=== PATIENT | male | born 1975 | race Caucasian/White ===

== ENCOUNTER → 2017-09-19 11:01 | Outpatient (CLI) | payer OTHER, SELFPAY ==
--- NOTE | 2017-09-19 11:07 | XR_ITS ---
EXAM: XR lumbar spine min 4V HISTORY: ITS.REASON: ACUTE MIDLINE LOW BACK PAIN ORDERING PHYSICIAN: SALENA Sweet PATIENT AGE: 42 years COMPARISON: None FINDINGS: Normal alignment. No fracture or dislocation. No lytic or blastic change. Moderate to severe degenerative disc disease is present at L5-S1 with decrease in the disc space, osteophyte formation, and osteosclerosis of the endplates. IMPRESSION: Degenerative disc disease at L5-S1
== END ==
PROVIDERS: PCP Family Medicine; Visit Provider Physician Assistant
DX: M54.5 Low back pain (principal)
CPT/HCPCS: 72110

== ENCOUNTER → 2018-08-06 15:10 | Outpatient (CLI) | payer OTHER, SELFPAY | PROVIDERS: PCP Physician Assistant; Visit Provider Physician Assistant | DX: R00.2 Palpitations (principal) | CPT/HCPCS: 93225; 93226 ==

== ENCOUNTER → 2018-11-18 14:05 | Outpatient (CLI) | payer OTHER, SELFPAY ==
--- NOTE | 2018-11-18 14:09 | CA_ITS ---
PROCEDURE: 2-D M-mode and color Doppler study INDICATIONS FOR THE TEST: Chest pain+ COPD Heart Murmur Tobacco Smoking Palpitations+ Fatigue+ Syncope Edema Hypertension+Diabetes Mellitus Rheumatic Fever SOB ADAMS+Obesity+Hyperlipidemia+ Family History HD Additional History PATIENT INFORMATION HEIGHT: 72 WEIGHT: 290 GENDER: Male B/P: 145/85 2-D/M-MODE INTERPRETATION: 2-D MEASUREMENTS OBSERVED VALUES IN CMS Right Ventricular Dimension (RVDd) 2.0 Interventricular Septum (Thickness)(IVsd) 1.0 Left Ventricular Internal Dimensions(LVIDd) 2.6 Left Ventricular Posterior Wall (Thickness)(LVPWd) 1.0 Aortic Root 2.8 Aortic Cusp Separation 2.0 Left Atrial Dimensions (LAD) 3.5 2D 1. Left atrium is mildly enlarged, left ventricle is normal size, mild concentric left ventricular hypertrophy, visually estimated ejection fraction 55% with no regional wall motion abnormality. 2. The right atrium and right ventricle are mildly enlarged with normal contractility. 3. The aortic valve is minimally thickened and fibrosed. 4. The mitral and tricuspid valvular grossly normal. 5. The pulmonic valve is poorly visualized. 6. No significant pericardial effusion noted. DOPPLER INTERROGATION: Doppler interrogation of the mitral and tricuspid valvular presence of mild mitral and tricuspid regurgitation, tricuspid regurgitation jet velocity is inadequate for calculation of the right ventricular systolic pressure, grade 1 diastolic dysfunction seen with tissue Doppler evidence of raised left atrial pressure. CONCLUSION: 1. Mildly enlarged left atrium, normal left ventricular size, mild concentric left ventricular hypertrophy, visually estimated ejection fraction 55% with no regional wall motion abnormality, grade 1 diastolic dysfunction seen with tissue Doppler evidence of raised left atrial pressure. 2. Mildly enlarged right ventricle with normal contractility. 3. Mild mitral and tricuspid regurgitation 4. No significant pericardial effusion noted.
== END ==
PROVIDERS: PCP Family Medicine; Visit Provider Nurse Practitioner Family
DX: R00.0 Tachycardia, unspecified (principal); R07.9 Chest pain, unspecified
CPT/HCPCS: 93306

== ENCOUNTER → 2018-12-19 13:00 | Outpatient (CLI) | payer OTHER, SELFPAY | PROVIDERS: PCP Family Medicine; Visit Provider Nurse Practitioner Family | DX: G47.30 Sleep apnea, unspecified (principal); I10 Essential (primary) hypertension; R40.0 Somnolence; R06.83 Snoring; R53.83 Other fatigue | CPT/HCPCS: 95806 ==

== ENCOUNTER → 2018-12-29 12:02 | Outpatient (CLI) | payer OTHER, SELFPAY ==
--- NOTE | 2018-12-29 12:52 | NM_ITS ---
CARDIOLITE SPECT MYOCARDIAL PERFUSION LEXISCAN, REST AND STRESS: [facility] REVIEW QGS EF AND WALL MOTION EVALUATION: QPS - PERFUSION EVALUATION HISTORY: TACHYCARDIA, C.P. DOSE: 9.71 mCi technetium 99m mibi intravenously at rest followed by 31.6 mCi technetium 99m mibi following the intravenous ministration of 0.4 mg of Lexiscan. Resting blood pressure is 186/59. Stress blood pressure 145/85. FINDINGS: Ejection fraction is calculated to be 50%. Uniform myocardial activity at both stress and rest IMPRESSION: No scintigraphic evidence of Lexiscan-induced myocardial ischemia with normal ejection fraction normal wall motion
== END ==
PROVIDERS: PCP Nurse Practitioner Family; Visit Provider Nurse Practitioner Family
DX: R00.0 Tachycardia, unspecified (principal); R07.9 Chest pain, unspecified
CPT/HCPCS: 78454; 93017; A9502; J2785

== ENCOUNTER → 2019-01-02 07:48 | Outpatient (CLI) | payer SELFPAY ==
--- NOTE | 2019-01-02 07:50 | CT_ITS ---
CT heart w calcium score INDICATION: ITS.REASON: chest pain, dyspnea ORDERING PHYSICIAN: Pramod Palafox MD PATIENT AGE: 43 years COMPARISON: None TECHNIQUE: Axial images are obtained without contrast. Sagittal and coronal reformatted images are reviewed as well. All CT scans at the facility use one or more dose reduction, viz: automated exposure control, ma/kV adjustment per patient size (including targeted exams where dose is matched to indication, i.e. head), or iterative reconstruction technique. FINDINGS: Coronary artery calcium score is 0 indicating very low cardiovascular disease risk. No identifiable plaque. There is mild thickening of the esophagus which may be seen with reflux esophagitis. IMPRESSION: No identifiable calcific plaque indicating low cardiovascular disease risk Thickening of the distal esophagus suggesting reflux
== END ==
PROVIDERS: PCP Family Medicine; Visit Provider Internal Medicine Cardiovascular Disease
DX: R07.9 Chest pain, unspecified (principal); R06.09 Other forms of dyspnea; R94.31 Abnormal electrocardiogram [ECG] [EKG]; I10 Essential (primary) hypertension; R00.2 Palpitations
CPT/HCPCS: 75571

== ENCOUNTER → 2019-10-13 15:44 | Outpatient (CLI) | payer OTHER, SELFPAY ==
--- NOTE | 2019-10-13 15:51 | XR_ITS ---
PROCEDURE: XR LUMBAR SPINE MIN 4V CLINICAL INDICATION: LUMBAR DISC HERNIATION Bilateral lower leg pain COMPARISON: [id number] XR lumbar spine min 4V from 09/19/2017 FINDINGS: Normal alignment. No fracture or dislocation. There is degenerative disc disease at L4-5 and to a greater degree at L5-S1 with some mild facet hypertrophic change at these levels as well IMPRESSION: Degenerative disc disease with facet hypertrophy L4-5 and L5-S1 Dictated by: Richard Mann MD 10/13/2019 17:06 Electronically signed by Richard Mann MD in [place] 10/13/2019 17:06
== END ==
PROVIDERS: PCP Family Medicine; Visit Provider Family Medicine
DX: M51.26 Other intervertebral disc displacement, lumbar region (principal)
CPT/HCPCS: 72110

== ENCOUNTER → 2019-10-16 13:34 | Outpatient (CLI) | payer OTHER, SELFPAY ==
--- NOTE | 2019-10-16 13:39 | MR_ITS ---
PROCEDURE: MR LUMBAR SPINE WO/W CON CLINICAL INDICATION: LUMBAR MYELOPATHY Low back pain with bilateral leg pain, left leg pain numbness and tingling. Prior surgery COMPARISON: [facility] MRI-L-SPINE W/WO from 05/08/2013 BASE REMOVER/O MRI-C-SPINE W/O from 05/18/2015 XR LUMBAR SPINE MIN 4V from 10/13/2019 TECHNIQUE: Standard multiplanar multiecho sequences are performed without contrast. 3-D MIP and myelographic images are also rendered and reviewed FINDINGS: Spinal cord ends at the L1-L2 level. There is good alignment. L1-L2: There is a small right paracentral disc protrusion causing some mild indentation upon the thecal sac the. This is not readily apparent on the previous exam L2-L3: Unremarkable. L3-L4: Mild bulging disc with mild facet and ligamentum hypertrophy with mild bilateral lateral recess and foraminal narrowing. L4-5: There is degenerative disc disease at L4-L5 with bulging disc which is eccentric toward the left. There has been a prior laminectomy on the left at this level. There is an area isointensity along the anterior aspect of the canal at this region. There is enhancement of this region as well as part of the bulging disc and left epidural space and paraspinal region. This is consistent with epidural fibrosis. There is canal stenosis as well as bilateral lateral recess and foraminal narrowing severe on the left. There is enhancement of the tissues around the left S1 nerve root anteriorly and posteriorly. L5-S1: Status post left-sided laminectomy. There is severe degenerative disc disease with bulging disc and facet and ligamentum hypertrophy with severe bilateral foraminal narrowing and severe bilateral lateral recess narrowing with canal stenosis. No abnormal epidural enhancement. IMPRESSION: 1. Small right paracentral disc protrusion at L1-L2. 2. Mild bulging disc with facet ligamentum hypertrophy and mild bilateral lateral recess and foraminal narrowing at L3-L4 3. There is degenerative disc disease at L4-L5 with bulging disc which is eccentric toward the left. There has been a prior laminectomy on the left at this level. There is abnormal enhancement of the posterior aspect of the disc and the small area of disc protrusion centrally as well as in the left epidural region consistent with epidural fibrosis. Canal stenosis is also present at this level. 4. Status post L5-S1 left-sided laminectomy. There is severe degenerative disc disease with bulging disc and facet and ligamentum hypertrophy with severe bilateral foraminal narrowing and severe bilateral lateral recess narrowing with canal stenosis. No abnormal epidural enhancement. Dictated by: Richard Mann MD 10/20/2019 09:57 Electronically signed by Richard Mann MD in [place] 10/20/2019 09:57
== END ==
PROVIDERS: PCP Family Medicine; Visit Provider Family Medicine
DX: M51.06 Intervertebral disc disorders with myelopathy, lumbar region (principal); G95.9 Disease of spinal cord, unspecified
CPT/HCPCS: 72158; 76376; A9576

== ENCOUNTER → 2019-12-09 15:40 | Outpatient (CLI) | payer OTHER, SELFPAY ==
--- NOTE | 2019-12-09 | XR_ITS ---
PROCEDURE: XR CERVICAL SPINE 2V CLINICAL INDICATION: Neck pain COMPARISON: No exams were available for comparison FINDINGS: There is slight reversal of cervical lordosis which may be due to patient positioning or muscle spasm. Degenerative disc disease is present at C5-C6 and C6-C7. No fracture or dislocation. No lytic or blastic change. IMPRESSION: Degenerative disc disease C5-C6 and C6-C7 with slight reversal of the cervical lordosis Dictated by: Richard Mann MD 12/09/2019 17:00 Electronically signed by Richard Mann MD in [place] 12/09/2019 17:00
== END ==
PROVIDERS: PCP Family Medicine
DX: M54.2 Cervicalgia (principal)
CPT/HCPCS: 72040

== ENCOUNTER → 2019-12-24 10:52 | Outpatient (POV) | payer OTHER, SELFPAY ==
[2019-12-24 11:16] VITALS: BP 135/85; PULSE 88; RESP 18; TEMP 36.6; O2SAT 88; BMI 40.0
--- NOTE | 2019-12-24 12:36 | HMH.PMCON ---
Assessment and Plan (1) Degenerative joint disease (DJD) of lumbar spine Current visit: Yes Status: Chronic Category: Medical Code(s): M47.816 - Spondylosis without myelopathy or radiculopathy, lumbar region (2) Lumbar radiculopathy Current visit: Yes Status: Chronic Category: Medical Code(s): M54.16 - Radiculopathy, lumbar region (3) Facet arthropathy, lumbar Current visit: Yes Status: Chronic Category: Medical Code(s): M47.816 - Spondylosis without myelopathy or radiculopathy, lumbar region (4) Spinal stenosis of lumbar region Current visit: Yes Status: Chronic Qualifiers: Neurogenic claudication status: with neurogenic claudication Qualified Code(s): M48.062 - Spinal stenosis, lumbar region with neurogenic claudication Category: Medical Code(s): M48.061 - Spinal stenosis, lumbar region without neurogenic claudication (5) Neck pain Current visit: Yes Status: Chronic Category: Medical Code(s): M54.2 - Cervicalgia (6) Cervical radiculopathy Current visit: Yes Status: Chronic Category: Medical Code(s): M54.12 - Radiculopathy, cervical region - Assessment and plan all Dx Assessment and Plan for all problems:: Given the patient's imaging and symptoms, we will begin with lumbar epidural steroid injection at L4-L5. He does have significant pain. Patient does not want oral medications. We will schedule him for an injection and see him back in the clinic afterwards to reassess his symptoms. He will continue with anti-inflammatories and a continued home stretching program. The patient and I specifically discussed risk factors for COVID19. These risks include, but are not limited to age greater than 60, heart or lung disease, diabetes, immunosuppression, and travel. We also discussed NSAIDs may worsen COVID19 infection or symptoms. Patient should not use NSAIDs to treat COVID19 signs or symptoms. Patient was also informed that any type of corticosteroid of any form (oral or injection) will decrease the patient's immune system response and may increase the likelihood of COVID19 infection and symptoms. Given the risk and benefits of the injection, the patient would like to proceed. The patient not also discussed possible intrathecal therapy if he does not get relief with the injections. He would also like to discuss possible injective therapy to his neck because he is awaiting an MRI. He is not on any anticoagulation therapy. Patient has been instructed to contact clinic if he has any concerns before his next appointment. Dr. Adams has reviewed this note and agrees with this plan of care. This note was dictated using voice recognition software and make contain errors or omissions. HPI - Data of Consult Consult date: 12/24/19 Requesting Physician: Celia Lafleur APRN Primary Care Provider: Magdaleno Laureano MD - Consult Narrative Reason for consult: Low back pain, bilateral leg pain, neck pain History of present illness: Mr. Sanders is a 44 year old male who presents today for consultation for low back pain with radiation into his bilateral lower extremities and neck pain. Patient says that he has had chronic low back pain for many years . He says the pain has progressively gotten worse. Patient did undergo a laminectomy in [place]. He says following his laminectomy he did feel better initially. He says he is progressively started to get worse, however. Patient reports his pain to be in his bilateral low back area with radiation into his bilateral posterior and anterior thighs. He says that the pain does radiate to the feet with prolonged sitting. Patient says that his feet do go numb and he finds himself losing balance. Patient also says he is starting to have severe neck pain as well. Patient does have recent imaging of his lumbar spine. He says that his primary care provider has been attempting to get an MRI of his cervical spine, however, he has not bee
== END ==
PROVIDERS: PCP Family Medicine; Visit Provider Clinical Nurse Specialist Family Health
DX: M47.896 Other spondylosis, lumbar region (principal); M54.16 Radiculopathy, lumbar region; M48.062 Spinal stenosis, lumbar region with neurogenic claudication; M45.2 Ankylosing spondylitis of cervical region; M54.12 Radiculopathy, cervical region
CPT/HCPCS: 99202

== ENCOUNTER 2020-01-01 09:47 | Day surgery (SDC) | payer OTHER, SELFPAY ==
[2020-01-01 10:03] VITALS: BP 126/78; PULSE 86; RESP 18; O2SAT 95; BMI 40.0
[2020-01-01 10:36] VITALS: BP 127/84; PULSE 80; RESP 18
[2020-01-01 10:37] VITALS: BP 128/87; PULSE 82; RESP 18; TEMP 36.8; O2SAT 99
--- NOTE | 2020-01-01 10:45 | HMH.PMPROC ---
- Procedure Date: 01/01/20 Time: 10:45 Anesthesiologist:: Brooks Adams MD Complications:: None Pre-procedure Diagnosis:: Degenerative disc disease of lumbar spine with lumbar radiculopathy symptoms and postlaminectomy syndrome of lumbar spine Post-procedure Diagnosis:: Same Indications for Procedure:: This patient is a pleasant 44-year-old white male who we are treating for low back pain with lumbar radiculopathy symptoms. He is previously seen Dr. quinones for injections. These did help significantly. He got most benefit from epidural steroid injections. Will do lumbar epidural steroid injection today to see if this will help with his pain symptoms. Procedure Details:: Lumbar epidural steroid injection under fluoroscopy Informed consent was obtained and the risk and benefits of the procedure was explained to the patient. The patient was taken to the procedure room. The patient was placed prone on the procedure table. The patient was prepped and draped in sterile fashion. C-arm fluoroscopy was used to view the lumbar spine. Skin and subcutaneous tissues were anesthetized using lidocaine. I placed an 18-gauge epidural needle and advanced into the L4-L5 interspace using fluoroscopic guidance and [id number] to air. After confirmation of needle placement in the epidural space with dye I injected 2 mL of lidocaine 1.5% with Depo-Medrol 80 mg. Patient tolerated the procedure well with no complications. Plan and Disposition:: We will follow-up with him in 2 weeks. Will reevaluate symptoms at that time.
[2020-01-01 11:00] VITALS: BP 122/76; PULSE 75; RESP 18; O2SAT 95
== END 2020-01-01 11:00 | disposition home or self-care (01) ==
LOC: SC.PAINP 09:48
PROVIDERS: PCP Family Medicine; Visit Provider Anesthesiology
DX: M51.16 Intervertebral disc disorders with radiculopathy, lumbar region (principal); M96.1 Postlaminectomy syndrome, not elsewhere classified; I10 Essential (primary) hypertension; E78.5 Hyperlipidemia, unspecified; Z79.899 Other long term (current) drug therapy; Z90.89 Acquired absence of other organs
CPT/HCPCS: 62323; J1040; Q9966

== ENCOUNTER → 2020-01-28 11:32 | Outpatient (POV) | payer OTHER, SELFPAY ==
[2020-01-28 11:46] VITALS: BP 112/72; PULSE 87; RESP 18; O2SAT 98; BMI 40.4
--- NOTE | 2020-01-28 12:32 | HMH.PAINSOAP ---
[facility] Pain Management SOAP Note Subjective:: Patient is a pleasant 44-year-old white male who presents today for follow-up. He is being treated for low back pain with lumbar radiculopathy symptoms. He is also being treated for neck pain with cervical radiculopathy symptoms. Patient was scheduled for an MRI of his cervical spine, however, was denied by his insurance. He is being treated for both neck and low back pain he has undergone lumbar epidural steroid injections in the past for which he is gotten 80 to 90% relief following the injections for up to 2 to 3 weeks. Patient does say that he is having worsening pain in his neck. The pain radiates into his bilateral arms with numbness and tingling. He also reports to have continuing low back pain. The patient does get relief with injections, however, his pain does return within 3 weeks. He has tried physical therapy and has not gotten relief. He is also continued using a home stretching program. He has tried anti-inflammatories. At this point, the patient would like to proceed with something for pain relief long-term. He is not interested in oral medications. Patient rates his pain a 5 out of 10 today. Most of his pain today is in his neck. 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 He says he has had more than 50 injections in the past from Dr. Godinez. He also says he has taken oral steroids intermittently for pain relief. Patient says this has been the only thing that is giving him relief in the past. Patient would like to proceed with a cervical epidural steroid injection, however, he will not be able to use steroids with injection. Patient would like to use lidocaine only during the injection. Patient I did discuss possible implanted devices for long-term relief. He was given educational information previous appointment and would like to proceed with a psychological evaluation for possible intrathecal therapy. Review of Systems General: No recent weight changes, no fever, no sleep disturbances Respiratory: No cough, no shortness of air, no recurring pulmonary infections Cardiovascular/peripheral vascular: No chest pain, no palpitations, no edema, no shortness of breath Gastrointestinal: No new onset incontinence, normal bowel movements reported Genitourinary: No new onset incontinence Musculoskeletal: Low back pain, bilateral lower extremity pain, neck pain, bilateral arm pain with numbness and tingling Psychiatric: Normal mood/affect Neurological: [Denies weakness in extremities], [denies balance issues] Objective:: Physical exam General: Alert and oriented x3, no acute distress, pleasant and cooperative, [on room air] Lungs: Respirations even and unlabored, symmetrical chest expansion Eyes: PERRL Musculoskeletal: Flexion and extension of lumbar and cervical spine somewhat guarded secondary to pain, deep tendon reflexes normal, strength in upper and lower extremities [5/5], slightly antalgic gait noted Neurological: Speech clear, railroad commissioner equal, no gross sensory deficit Assessment:: Neck pain with cervical radiculopathy symptoms, degenerative disc disease lumbar spine with lumbar radiculopathy symptoms and postlaminectomy syndrome lumbar spine Plan:: We will schedule the patient for cervical epidural steroid injection at C6-C7. We will use lidocaine only. The patient is not on any anticoagulation therapy. We will see him back in the clinic after his injection to reassess his symptoms. Patient has tried and failed conservative therapies of injections and at this point is no longer tolerating the steroids. He has developed cataracts due to the large doses of steroids according to his cash applications specialist. He has undergone physical therapy and continues with a home stretching program. He is also using ice and heat therapies along with anti-inflammatories. We will
== END ==
PROVIDERS: PCP Family Medicine; Visit Provider Clinical Nurse Specialist Family Health
DX: M51.16 Intervertebral disc disorders with radiculopathy, lumbar region (principal); M96.1 Postlaminectomy syndrome, not elsewhere classified; M54.2 Cervicalgia
CPT/HCPCS: 99212

== ENCOUNTER 2020-02-12 10:49 | Day surgery (SDC) | payer OTHER, SELFPAY ==
[2020-02-12 11:01] VITALS: BP 124/71; PULSE 89; RESP 18; TEMP 36.6; O2SAT 96; BMI 40.4
[2020-02-12 12:08] VITALS: BP 140/85; PULSE 79; RESP 18
[2020-02-12 12:10] VITALS: BP 116/75; BP 145/85; PULSE 70; PULSE 84; RESP 18; RESP 20; O2SAT 97; O2SAT 98
--- NOTE | 2020-02-12 12:12 | HMH.PMPROC ---
- Procedure Date: 02/12/20 Time: 12:12 Anesthesiologist:: Brooks Adams MD Complications:: None Pre-procedure Diagnosis:: Degenerative disc disease of cervical spine with cervical radiculopathy symptoms Post-procedure Diagnosis:: Same Indications for Procedure:: This patient is a pleasant 44-year-old white male who we are treating for neck pain with cervical radiculopathy symptoms. He has increasing pain in his neck rating down his arm. He recently was on chronic steroids which is affecting his eyes. He does have cataracts developing from chronic steroid use. We will do a cervical epidural steroid injection today and reduce our steroid in the epidural. We will decrease her steroid to 40 mg. Procedure Details:: Cervical epidural steroid injection under fluoroscopy Informed consent was obtained and the risks and benefits of the procedure was explained to the patient. The patient was taken to the procedure room placed prone on the procedure table. The neck was prepped using ChloraPrep. The skin and subcutaneous tissues were anesthetized using lidocaine. I placed a 18-gauge epidural needle into the C5-C6 interspace and advanced using [id number] to air and fluoroscopic guidance. After confirmation of needle placement in the epidural space with dye, I injected 3 mL's lidocaine 1.5% and Depo-Medrol 40 mg. The patient tolerated the procedure well with no complications. Plan and Disposition:: We will follow-up with him in 2 weeks. Will reevaluate symptoms at that time.
== END 2020-02-12 12:16 | disposition home or self-care (01) ==
LOC: SC.PAINP 10:50
PROVIDERS: PCP Family Medicine; Visit Provider Anesthesiology
DX: M50.10 Cervical disc disorder with radiculopathy, unspecified cervical region (principal); I10 Essential (primary) hypertension; E78.5 Hyperlipidemia, unspecified; K21.9 Gastro-esophageal reflux disease without esophagitis; F41.9 Anxiety disorder, unspecified; Z82.49 Family history of ischemic heart disease and other diseases of the circulatory system; Z88.0 Allergy status to penicillin; Z88.1 Allergy status to other antibiotic agents; Z88.8 Allergy status to other drugs, medicaments and biological substances; Z79.899 Other long term (current) drug therapy; Z90.89 Acquired absence of other organs
CPT/HCPCS: 62321; Q9966

== ENCOUNTER 2020-04-01 08:35 | Day surgery (SDC) | payer OTHER, SELFPAY ==
[2020-04-01] VITALS (9 sets, daily range): BP systolic 88–147; BP diastolic 48–94; PULSE 83–98; RESP 18–20; TEMP 36.8; O2SAT 94–100; BMI 39.3
--- NOTE | 2020-04-01 09:54 | HMH.PMPROC ---
- Procedure Date: 04/01/20 Time: 09:54 Anesthesiologist:: Brooks Adams MD Complications:: None Pre-procedure Diagnosis:: Disease of cervical spine with cervical radiculopathy symptoms. Postlaminectomy syndrome lumbar spine Post-procedure Diagnosis:: Same Indications for Procedure:: This patient is a pleasant 44-year-old white male who we are treating for neck pain low back pain with cervical radiculopathy symptoms and postlaminectomy syndrome lumbar spine. He has not gotten long-term relief with injections. He is failed previous physical therapy. He is failed previous surgery. He also has cataracts developing from chronic steroid use. He has had a successful psychological evaluation. We will plan on intrathecal pump trial to help with his neck pain and low back pain. We will do this today. Procedure Details:: Pain pump trial Informed consent was obtained and the risk and benefits of the procedure was explained to the patient. The patient was taken to the procedure room and placed prone on the procedure table. Patient was prepped and draped in sterile fashion. C-arm fluoroscopy was used to view the lumbar spine. The skin and subcutaneous tissues were anesthetized using lidocaine. I placed a 18-gauge spinal needle into the L4-5 interspace and advanced until clear CSF was obtained. After this intrathecal catheter was inserted and advanced very easily to the L1 vertebral body. The needle was withdrawn. We were able to freely withdraw clear CSF through the catheter. We then injected intrathecal fentanyl single shot bolus of 25 mcg followed by saline and followed by the previous CSF that was withdrawn. The needle and catheter were then removed and a Band-Aid was placed. Patient tolerated the procedure well with no complications. We reevaluated the patient after 30 minutes to 1 hour. He was also reassessed by physical therapy. Patient had 90 to 95% relief of his pain symptoms. Pain score is down to 1-2 out of 10. He had 300% improvement from pre-physical therapy flexion extension to post physical therapy flexion extension. He was much more functional. This was a successful intrathecal pump trial. He wants to proceed with permanent placement. We will plan on permanent placement of intrathecal pain pump with intrathecal morphine 5 mg/mL to start at 0.25 mg/day. Catheter placement will be at the T8 vertebral body. Plan and Disposition:: We will schedule this patient with Dr. scott for evaluation of permanent placement of intrathecal pain pump. Catheter tip will be at the T8 vertebral body. This will be with morphine 5 mg per ml to start at 0.25 mg/day.
--- NOTE | 2020-04-01 13:35 | PC.NURSE ---
1000-pt assisted back to bay via w/c. assisted to recliner by nursing staff. pt reports feeling dizzy, weak. chair placed in a reclining position. cool cloth applied to nape of neck. pt is hypotensive, 90/52. states he did not eat breakfast this am. Md notified of events. staff remains at bedside 1004-pt remains in reclined position. no c/o pain spouse at bedside. RN at bedside 1007-MD at bedside. 1008-pt resting in reclined position. BP 91/50. no c/o pain reports feeling some better tolerating food and fluids. spouse and RN remains at beside. 1015-pt remains in reclined position. continues to be hypotensive but states he feels better. tolerating po intake. no c/o pain. does report itching but declined offer for po benadryl. 1030-pt sitting up in recliner. no c/o dizziness, no c/o pain. reports feeling back to normal. does report itching. medicated per request with po benadryl. vss. 1040-pt ambulated in hallway accompanied by nursing staff. denies pain with ambulation, gait is steady. pt returned to bay. 1045-pt resting in chair. vss. no c/o pain. no needs or concerns at this itme 1110-PT at bedside for evaluation
== END 2020-04-01 11:25 | disposition home or self-care (01) ==
LOC: SC.PAINP 08:36
PROVIDERS: PCP Family Medicine; Visit Provider Anesthesiology
DX: M50.10 Cervical disc disorder with radiculopathy, unspecified cervical region (principal); M96.1 Postlaminectomy syndrome, not elsewhere classified; I10 Essential (primary) hypertension; R00.0 Tachycardia, unspecified; K21.9 Gastro-esophageal reflux disease without esophagitis; F41.9 Anxiety disorder, unspecified; Z90.89 Acquired absence of other organs; E78.5 Hyperlipidemia, unspecified; I44.5 Left posterior fascicular block; I51.89 Other ill-defined heart diseases; Z88.1 Allergy status to other antibiotic agents; Z88.0 Allergy status to penicillin
CPT/HCPCS: 62321; 96365

== ENCOUNTER → 2020-06-14 11:45 | Outpatient (CLI) | payer OTHER, SELFPAY ==
[2020-06-14 13:08] LABS: Basophils # 0.1 K/mm3 (0-0.2); Basophils % 0.7 % (0.1-2.0); Eosinophils # 0.9 K/mm3 (0.0-0.4); Eosinophils % 9.6 % (0.1-12.0); Hematocrit 51.6 % (42.0-52.0); Hemoglobin 16.8 g/dL (14.1-18.0); Lymphocytes # 2.7 K/mm3 (0.7-4.5); Lymphocytes % 28.1 % (10-50); Mean Corpuscular HGB Conc 32.6 g/dL (31.8-35.4); Mean Corpuscular Hemoglobin 27.3 pg (27.0-31.2); Mean Corpuscular Volume 83.7 fl (80-94); Mean Platelet Volume 7.5 fl (7.4-10.4); Monocytes # 0.6 K/mm3 (0.1-1.0); Neutrophils # 5.4 K/mm3 (1.8-7.8); Neutrophils % 55.6 % (37.0-80.0); Platelet Count 421 K/mm3 (142-424); Red Blood Count 6.17 M/mm3 (4.60-6.20); Red Cell Distribution Width 14.2 % (11.5-17.5); White Blood Count 9.7 K/mm3 (4.8-10.8)
[2020-06-14 15:07] LABS: Chloride 98 mmol/L (98-107); Potassium 4.5 mmoL/L (3.5-5.1); Sodium 141 mmol/L (136-145)
[2020-06-14 15:10] LABS: Anion Gap 14.5 mEq/L (5-15); Blood Urea Nitrogen 12 mg/dl (9-20); Calcium 10.1 mg/dl (8.4-10.2); Carbon Dioxide 33 mmol/L (22.0-30.0); Estimated Glomerular Filt Rate 72 ml/min (>60); GFR (African American) 87 ML/MIN (>60); Glucose 101 mg/dl (74-100)
[2020-06-14 15:26] LABS: Coronavirus 19 IgG Antibody Negative (Negative); Coronavirus 19 IgM Antibody Negative (Negative)
[2020-06-14 16:05] LABS: Amphetamine/Metha Screen,Urine Negative ng/ml (<1000)
[2020-06-14 16:06] LABS: Cannabinoid Screen,Urine Negative ng/ml (<50)
[2020-06-14 16:07] LABS: Barbiturates Screen,Urine Negative ng/ml (<200)
[2020-06-14 16:08] LABS: Benzodiazepines Screen,Urine Negative ng/ml (<200)
[2020-06-14 16:09] LABS: Methadone Screen,Urine Negative ng/ml (<300)
[2020-06-14 16:10] LABS: Opiate Screen,Urine Positive ng/ml (<300); Phencyclidine Screen,Urine Negative ng/ml (<25)
[2020-06-14 17:29] LABS: Cocaine Screen,Urine Negative ng/ml (<300)
== END ==
PROVIDERS: Visit Provider Anesthesiology
DX: Z01.818 Encounter for other preprocedural examination (principal); M51.36 Other intervertebral disc degeneration, lumbar region
CPT/HCPCS: 36415; 80048; 80305; 85025; 86328

== ENCOUNTER 2020-06-15 07:02 | Day surgery (SDC) | payer OTHER, SELFPAY ==
[2020-06-13 13:22] VITALS: BMI 39.3
[2020-06-15] VITALS (7 sets, daily range): BP systolic 101–126; BP diastolic 46–71; PULSE 87–107; RESP 16–18; TEMP 36.8–36.9; O2SAT 92–97
--- NOTE | 2020-06-15 07:47 | HMH.ANESCL ---
[facility] Anesthesia Checklist - Patient Identification Patient Identification: Arm Band, Verbal (Name & ) - Structural Data Admitted From: Home Planned Operative Procedure/s: Placement of intrathecal pain pump Consent for Planned Operative Procedure(s) Verified: Yes Verified Documents: Surgical Consent, History and Physical - NPO Status Verified Time NPO: 23:30 - Chart Verification Results Verified: CBC, BMP - Additional verifications Anesthesia Reactions: No Hx Blood Transfusions: No Blood Transfusion Reaction: No - Airway Assessment C-Spine Mobility Assessed: Yes (MP 3, facial hair, thick neck, full neck ROM) TMJ Mobility Assessed: Yes Dentition: Good Dentition - Neurological Assessment Level of Consciousness: Awake, Alert, Appropriate, Follows Commands Hx Seizures: No Numbness or tingling in extremities: Yes - Anesthesia Plan Anesthesia Risk discussed: Yes Anesthesia Plan: Verified ASA Class: III Anesthesia Type: MAC [facility] History I have reviewed the patient's past medical history: Yes Medical History: Reports:: Anxiety, Arrhythmia, BPH, Gastroesophageal Reflux Disease(GERD), Hyperlipidemia, Hypertension, Palpitations Denies:: Cancer, Diabetes Mellitus Type 1, Diabetes Mellitus Type 2, Internal Pacemaker, MRSA, Seizures *Have you ever received a pneumonia vaccine?: No *Have you received a flu vaccine this season?: No Other Medical History: Reports: Other. Denies: Blood Transfusion Reaction Comment:: BHASKAR uses CPAP, obesity Anesthesia experience/problems:: None Laterality Cases: Bilateral: Tonsillectomy Other Surgeries: Yes: Other (microdiscectomy L5-S1 2003). No: Pacemaker Amputation: No Fractures: Yes (L ankle) - *Social History Last grade of school completed: Some college Smoking Status: Never smoker Alcohol Intake: never Substance Use Type: denies use *Occupational Status:: employed Housing: house Household Members: spouse, family *Travel in the last 8 weeks: None - Psychiatric History Pschychiatric History:: Reports:: Anxiety Family Hx:: Unable to obtain
--- NOTE | 2020-06-15 08:03 | HMH.PMCON ---
Assessment and Plan - Assessment and plan all Dx Assessment and Plan for all problems:: Impression-degenerative disc disease of lumbar and cervical spine Plan-placement of pain pump system today HPI - Data of Consult Patient: new to practice Consult date: 06/15/20 Requesting Physician: Brooks Adams MD Primary Care Provider: Magdaleno Laureano MD - Consult Narrative History of present illness: Mr. Sanders is a 45 year old male with degenerative disc disease of the lumbar and cervical spine has had 2 back surgeries in the past, 2003, 2017. Multiple attempts at pain relief have been unsuccessful. The patient had a pain pump trial with significant improvement he comes in today for placement of that system CC: Brooks Adams MD Chronic back pain [facility] History Medical History: Reports:: Anxiety, Arrhythmia, BPH, Gastroesophageal Reflux Disease(GERD), Hyperlipidemia, Hypertension, Lung Disease (SOA), Palpitations Denies:: Cancer, Diabetes Mellitus Type 1, Diabetes Mellitus Type 2, Internal Pacemaker, MRSA, Seizures *Have you ever received a pneumonia vaccine?: No *Have you received a flu vaccine this season?: No Other Medical History: Reports: Other. Denies: Blood Transfusion Reaction Comment:: Illnesses-chronic back pain, hypertension, hyperlipidemia, GERD, BPH Anesthesia experience/problems:: None Laterality Cases: Bilateral: Tonsillectomy Other Surgeries: Yes: No Previous Surgery, Other (microdiscectomy L5-S1 2003). No: Pacemaker Amputation: No Fractures: Yes (L ankle) Comment: Surgeries--back surgery x2, tonsillectomy - *Social History Last grade of school completed: Some college Smoking Status: Never smoker Alcohol Intake: never Substance Use Type: denies use *Occupational Status:: employed Housing: house Household Members: spouse, family *Travel in the last 8 weeks: None - Psychiatric History Pschychiatric History:: Reports:: Anxiety Family Hx:: Unable to obtain Review of Systems - Review of Systems Review of systems:: pertinent systems reviewed and negative unless documented below Meds Home Medications Medication Instructions Recorded Confirmed Type Indomethacin 50 mg PO TID 12/19/17 06/15/20 History Tamsulosin HCl [Flomax 0.4mg 0.4 mg PO DAILY 12/19/17 06/15/20 History capsule] Venlafaxine HCl [Venlafaxine HCl 150 mg PO DAILY 12/19/17 06/15/20 History ER] Atorvastatin Calcium [Atorvastatin 20 mg PO DAILY 08/20/18 06/15/20 History 20mg Tab] amlodipine 10 mg tablet 10 mg PO DAILY 12/18/18 06/15/20 History hydrochlorothiazide 25 mg tablet 25 mg PO DAILY 12/18/18 06/15/20 History losartan 50 mg tablet 100 mg PO DAILY tab 12/18/18 06/15/20 History metoprolol succinate 50 mg 100 mg PO DAILY tab 12/18/18 06/15/20 History tablet,extended release 24 hr omeprazole 20 mg capsule,delayed 20 mg PO DAILY 12/18/18 06/15/20 History release Allergies Allergy/AdvReac Type Severity Reaction Status Date / Time cefaclor [From CECLOR] Allergy Unknown Verified 06/15/20 07:16 cephalexin [From KEFLEX] Allergy Unknown Verified 06/15/20 07:16 oxytetracycline Allergy Unknown Verified 06/15/20 07:16 [From TERRAMYCIN] Penicillins [PENICILLINS] Allergy Unknown Verified 06/15/20 07:16 pregabalin [From LYRICA] Allergy Unknown Verified 06/15/20 07:16 erythromycin base Allergy Verified 06/15/20 07:16 Objective Vital signs: Temp Pulse Resp BP Pulse Ox 98.2 F 87 18 126/71 97 06/15/20 07:19 06/15/20 07:19 06/15/20 07:19 06/15/20 07:19 06/15/20 07:19 no acute distress - Routine Chest/Breast/Axilla Exam Comments: Chest clear - *Routine Cardiovascular Exam Present: RRR - *Routine Abdominal Exam Present: soft
--- NOTE | 2020-06-15 09:35 | P.OP_ITS ---
Date of procedure: 06/15/20 Pre-op Diagnosis:: Degenerative disc disease of the lumbar spine with radiculopathy Post-op Diagnosis:: Same Procedure performed:: Placement of pain pump generator Surgeon:: Lino Barrios MD SALES FLOOR MANAGER:: Rickey Brady, Sandro Auguste, Jeyson Martell, Leon Luis, Other Anesthesia: MAC Estimated blood loss (mL): 10 Operative findings:: Not applicable Operative note:: Once adequate IV sedation was obtained, the patient was placed prone on the operating table and his back and flank regions were prepped and draped in sterile fashion. Once adequate local anesthesia utilizing 1% Xylocaine with epinephrine a paraspinal incision was made by Dr. Cabrera there which an intrathecal catheter was passed into the intrathecal space to the area desired by Dr. Cabrera. A right flank incision was then made under which is made a pocket for placement of the generator. Catheter sutured to the underlying fascia with fixation device and 2-0 Prolene suture. Utilize a tunneling device the catheter was passed from the paraspinal incision to the pocket incision. Generator affixed to the catheter which was placed in the pocket. CSF was aspirated from the generator noting patency of the system.. Subcutaneous tissues irrigated with antibiotic solution. Subcutaneous tissues closed with stitches of 2-0 Vicryl. Skin was closed with interrupted stitches of 4-0 nylon. Wound VAC dressings and a binder applied to the wound. The patient t tolerated procedure well and was taken to the recovery room in stable condition. Upon recovery the patient will be discharged home will follow-up 1 week for removal of the wound VAC dressings and in 2 weeks for removal of sutures. Antibiotics x1 week per protocol. The patient tolerated the procedure well Condition: stable Disposition: PACU Complications:: None
--- NOTE | 2020-06-15 09:37 | HMH.OPNOTE ---
Date of procedure: 06/15/20 Pre-op Diagnosis:: Postlaminectomy syndrome of lumbar spine with lumbar radiculopathy symptoms and degenerative disc disease of the cervical spine with cervical radiculopathy symptoms Post-op Diagnosis:: Same Procedure performed:: Permanent placement intrathecal catheter with tunneling for permanent intrathecal pain pump placement Surgeon:: Brooks Adams MD FINANCIAL PROJECT MANAGER:: Rickey Brady Anesthesia: MAC Estimated blood loss (mL): 10 Clinical Note:: This patient is a pleasant 45-year-old white male who we are treating for neck pain and low back pain with cervical radiculopathy symptoms and lumbar radiculopathy symptoms with postlaminectomy syndrome lumbar spine. He is failed all previous conservative therapy including physical therapy, injections and he also has cataracts now developing from chronic steroid use with his injections. He is not a surgical candidate. He has had a successful psychological evaluation and a successful intrathecal pump trial with 80 to 90% relief in his pain symptoms. He presents for permanent placement of intrathecal pain pump today. Operative findings:: None Operative note:: Informed consent was obtained and the risk and benefits of the procedure was explained to the patient. The patient was taken to the operating room placed prone on the procedure table. He was prepped and draped in sterile fashion. C-arm fluoroscopy was used to view the lumbar spine. The skin and subcutaneous tissues adjacent to the L4-5 and L5-S1 interspace were anesthetized using lidocaine. I made an incision and dissected down to the lumbar paraspinous fascia. A 14-gauge spinal needle was inserted and advanced into the L4-5 interspace until clear CSF was obtained. After this intrathecal catheter was inserted and advanced very easily to the T9 vertebral body. The stylette and the needle were withdrawn. We were able to freely withdraw clear CSF through the catheter. The catheter was secured to the fascia with 2 anchoring devices and 2-[address] Barrios created the pump pocket while I prepared the pump with 20 mL of intrathecal morphine 5 mg per ml. I tunneled the catheter from the back to the pump pocket and attached the catheter to the pump. We were able to freely withdraw clear CSF through the side-port. The pump was placed in the pocket and secured to the fascia with 2-0 Prolene. Both incisions were irrigated with bacitracin solution. Both incisions were then closed with 2-0 Vicryl followed by 4-0 nylon. A wound VAC was placed over both incisions. The patient was placed in an abdominal binder and taken recovery in stable condition. The pump was interrogated by the [employer] labor union business representative and started at 0.25 mg/day of intrathecal morphine 5 mg/mL. Patient tolerated the procedure well with no complications. The patient did have a urine drug screen test positive for opiates as he did take his last [place] 5 mg last night. I told him not to take any more [place]. We will continue to monitor his urine drug screen and prescription drug monitoring to make sure he does not get any opiates from his primary care provider. Patient was discharged home neurologically intact with good relief of pain symptoms. Plan and disposition: We will follow-up with this patient in 1 week for wound check and reprogramming. We will also enact his PTC device at that time. We will follow-up in 2 weeks for suture removal. If patient has any problems or questions he is to call us back in the pain clinic. Condition: stable Disposition: PACU Complications:: None
== END 2020-06-15 11:11 | disposition home or self-care (01) ==
LOC: OR 07:03
PROVIDERS: PCP Family Medicine; Visit Provider Anesthesiology
PROC: (CPT 62350; principal; 2020-06-15 08:30)
DX: M96.1 Postlaminectomy syndrome, not elsewhere classified (principal); M51.16 Intervertebral disc disorders with radiculopathy, lumbar region; M50.10 Cervical disc disorder with radiculopathy, unspecified cervical region; I10 Essential (primary) hypertension; E78.5 Hyperlipidemia, unspecified; K21.9 Gastro-esophageal reflux disease without esophagitis; R00.2 Palpitations; F41.9 Anxiety disorder, unspecified; N40.0 Benign prostatic hyperplasia without lower urinary tract symptoms; Z79.899 Other long term (current) drug therapy; Z88.0 Allergy status to penicillin; Z88.1 Allergy status to other antibiotic agents
CPT/HCPCS: 62350; 62362; 96374; C1755; C1772

== ENCOUNTER → 2020-06-17 09:32 | Outpatient (POV) | payer OTHER, SELFPAY ==
[2020-06-17 09:37] VITALS: BP 137/84; PULSE 96; RESP 20; TEMP 36.8; O2SAT 96; BMI 39.3
--- NOTE | 2020-06-17 12:05 | HMH.PAINSOAP ---
[facility] Pain Management SOAP Note Subjective:: Patient is a pleasant 45-year-old white male who we are treating for neck pain low back pain with cervical radiculopathy symptoms and lumbar radiculopathy symptoms and postlaminectomy syndrome lumbar spine. He is status post permanent placement of an intrathecal pain pump he had this done 2 days ago. He was started on 0.25 mg/day of intrathecal morphine. Pain score is a 4 out of 10 today. He has had a slight low-grade temp which is 100.8 since Saturday. His incisions look fine there is no signs of infection. They are healing very nicely. He did have some bleeding from his pump incision and we will replace his wound VAC today. Overall he is doing better with no other signs of infection he is on antibiotics. We will follow-up with him next Saturday to remove his wound VAC. If he does have any increases in temperature or increases in pain he is to call us in the pain clinic. Objective:: Alert and oriented x3 no acute distress. Patient does have an antalgic gait. Motor strength of the lower extremities is 5/5. There is no gross sensory deficit. Incisions are healing very nicely. There is no redness swelling no fluctuance no signs of infection. Assessment:: Postlaminectomy syndrome lumbar spine with lumbar radiculopathy symptoms. Degenerative disc disease of cervical spine with cervical radiculopathy symptoms. Status post permanent placement of intrathecal pain pump with intrathecal morphine at 0.25 mg/day. Plan:: I am very pleased with his progress. We will replace his wound VAC today as he did bleed through his previous wound VAC. We will continue to monitor his temperature and monitor for any signs of infection. He is to continue with his antibiotics. If he does have any change in symptoms any neurological changes or any increases in fever or increases in pain he is to call us in the pain clinic. We will follow-up with him next Saturday to reevaluate his symptoms and remove the wound VAC and wound check. [facility] History Medical History: Reports:: Anxiety, Arrhythmia, BPH, Gastroesophageal Reflux Disease(GERD), Hyperlipidemia, Hypertension, Lung Disease (SOA), Palpitations Denies:: Cancer, Diabetes Mellitus Type 1, Diabetes Mellitus Type 2, Internal Pacemaker, MRSA, Seizures *Have you ever received a pneumonia vaccine?: No *Have you received a flu vaccine this season?: No Other Medical History: Reports: Other. Denies: Blood Transfusion Reaction Laterality Cases: Bilateral: Tonsillectomy Other Surgeries: Yes: No Previous Surgery, Other (microdiscectomy L5-S1 2003). No: Pacemaker Amputation: No Fractures: Yes (L ankle) - *Social History Smoking Status: Never smoker Alcohol Intake: never Substance Use Type: denies use *Occupational Status:: employed Housing: house Household Members: spouse, family *Travel in the last 8 weeks: None - Psychiatric History Pschychiatric History:: Reports:: Anxiety Family Hx:: Unable to obtain
== END ==
PROVIDERS: Visit Provider Anesthesiology
DX: M96.1 Postlaminectomy syndrome, not elsewhere classified (principal); M50.10 Cervical disc disorder with radiculopathy, unspecified cervical region; M54.16 Radiculopathy, lumbar region
CPT/HCPCS: 99212

== ENCOUNTER → 2020-06-24 11:59 | Outpatient (POV) | payer OTHER, SELFPAY ==
[2020-06-24 12:31] VITALS: BP 149/97; PULSE 90; RESP 20; TEMP 36.6; O2SAT 94; BMI 39.3
--- NOTE | 2020-06-24 12:52 | P.CONS_ITS ---
[facility] Pain Management SOAP Note Subjective:: This patient is a pleasant 45-year-old white male who is 1 week status post permanent placement of intrathecal morphine pain pump. He is 80 to 90% better. He is doing very well with no side effects. We will reprogram him and start his PTC device today. Overall he is doing very well his incisions are healing very nicely. Wound vacs were removed today. He does have some pain over his left hip down his left leg he is tender over his left SI joint. He has a positive Nelson's test on left side. Is positive Karie test on left side. Is positive SI joint compression test on left side. He does have some aspect of sacroiliitis. We will conservatively treat this for the next couple weeks to s ee if this goes away if it does not go away then we will plan on a left SI joint injection under fluoroscopy in the future. Objective:: Alert and oriented x3 no acute distress. Incisions of healed very nicely. Intrathecal morphine infusion continues at 0.25 mg/day. PTC device is started at 0.025 mg up to 4 times a day as needed. Patient is tender over his left SI joint. Is positive Nelson's test on left side. Is positive Karie test on left side. Is positive SI joint compression test on left side. Positive distraction test on left side. Assessment:: Degenerative disc disease of lumbar spine with lumbar radiculopathy symptoms and degenerative disease of the cervical spine with cervical radiculopathy symptoms. Sacroiliitis. Plan:: We will follow-up with him in 1 week for suture removal. We will also reassess his left SI joint. If his pain persist we will plan on a left SI joint injection under fluoroscopy in the future. PTC is started today at 0.025 mg up to 4 times a day. Constant dose remains at 0.25 mg/day of intrathecal morphine. [facility] History Medical History: Reports:: Anxiety, Arrhythmia, BPH, Gastroesophageal Reflux Disease(GERD), Hyperlipidemia, Hypertension, Lung Disease (SOA), Palpitations Denies:: Cancer, Diabetes Mellitus Type 1, Diabetes Mellitus Type 2, Internal Pacemaker, MRSA, Seizures *Have you ever received a pneumonia vaccine?: Yes *Have you received a flu vaccine this season?: Yes Other Medical History: Reports: Other. Denies: Blood Transfusion Reaction Laterality Cases: Bilateral: Tonsillectomy Other Surgeries: Yes: No Previous Surgery, Other (microdiscectomy L5-S1 2003). No: Pacemaker Amputation: No Fractures: Yes (L ankle) - *Social History Smoking Status: Never smoker Alcohol Intake: never Substance Use Type: denies use *Occupational Status:: employed Housing: house Household Members: spouse, family *Travel in the last 8 weeks: None - Psychiatric History Pschychiatric History:: Reports:: Anxiety Family Hx:: Unable to obtain
== END ==
PROVIDERS: PCP Family Medicine; Visit Provider Anesthesiology
DX: M51.16 Intervertebral disc disorders with radiculopathy, lumbar region (principal); M50.10 Cervical disc disorder with radiculopathy, unspecified cervical region; M46.1 Sacroiliitis, not elsewhere classified; Z45.1 Encounter for adjustment and management of infusion pump
CPT/HCPCS: 62368

== ENCOUNTER → 2020-07-06 19:09 | Outpatient (CLI) | payer OTHER, SELFPAY ==
[2020-07-06 20:32] LABS: Basophils % 0.5 % (0.1-2.0); Eosinophils # 0.4 K/mm3 (0.0-0.4); Eosinophils % 4.9 % (0.1-12.0); Hematocrit 45.2 % (42.0-52.0); Hemoglobin 15.6 g/dL (14.1-18.0); Lymphocytes # 2.4 K/mm3 (0.7-4.5); Lymphocytes % 30.1 % (10-50); Mean Corpuscular HGB Conc 34.5 g/dL (31.8-35.4); Mean Corpuscular Hemoglobin 28.9 pg (27.0-31.2); Mean Corpuscular Volume 83.8 fl (80-94); Mean Platelet Volume 7.3 fl (7.4-10.4); Monocytes # 0.7 K/mm3 (0.1-1.0); Monocytes % 8.3 % (1.7-9.3); Neutrophils # 4.5 K/mm3 (1.8-7.8); Neutrophils % 56.1 % (37.0-80.0); Platelet Count 290 K/mm3 (142-424); Red Cell Distribution Width 15.2 % (11.5-17.5)
[2020-07-08 11:51] LABS: Covid-19 Nasal PCR Sendout Lex Not Detected
== END ==
PROVIDERS: PCP Nurse Practitioner Family; Visit Provider Nurse Practitioner Family
DX: Z03.818 Encounter for observation for suspected exposure to other biological agents ruled out (principal); J09.X2 Influenza due to identified novel influenza A virus with other respiratory manifestations
CPT/HCPCS: 36415; 85025; 87275; 87276; U0004

== ENCOUNTER → 2020-07-15 12:34 | Outpatient (POV) | payer OTHER, SELFPAY ==
[2020-07-15 13:02] VITALS: BP 123/65; PULSE 87; RESP 18; TEMP 36.4; O2SAT 98; BMI 39.3
--- NOTE | 2020-07-15 13:45 | HMH.PMPROC ---
- Procedure Date: 07/15/20 Time: 13:45 Anesthesiologist:: Brooks Adams MD Complications:: None Pre-procedure Diagnosis:: Degenerative disc disease of lumbar spine with lumbar radiculopathy symptoms. Degenerative disc disease of cervical spine with cervical radiculopathy symptoms. Post-procedure Diagnosis:: Same Indications for Procedure:: This patient is a pleasant 45-year-old white male who is 2 weeks status post permanent placement of intrathecal morphine pain pump. Currently he is going at 0.25 mg/day of intrathecal morphine. Pain score is a 1-2 out of 10. He does notice some increasing pain as he is working. He is back to work working 10-hour shifts at the [employer]. Overall he is doing very well he is 89% better. We will remove his sutures today. We will make adjustments to his intrathecal infusion today. We will increase him to 0.35 mg/day. Procedure Details:: Adjustment analysis and reprogram of intrathecal pain pump infusion. Informed consent was obtained risk and benefits of the procedure were explained to the patient. Patient was taken the procedure room. The pump was interrogated. Intrathecal morphine infusion was increased to 0.35 mg/day. Patient tolerated procedure well with no complications. Plan and Disposition:: We will follow-up with him in 1 month. Will reevaluate symptoms at that time.
== END ==
PROVIDERS: PCP Family Medicine; Visit Provider Anesthesiology
DX: M51.16 Intervertebral disc disorders with radiculopathy, lumbar region (principal); M50.10 Cervical disc disorder with radiculopathy, unspecified cervical region
CPT/HCPCS: 62368; 99212

== ENCOUNTER → 2020-08-18 12:51 | Outpatient (POV) | payer OTHER, SELFPAY ==
[2020-08-18 12:54] VITALS: BP 133/85; PULSE 88; RESP 18; TEMP 36.6; O2SAT 99; BMI 39.3
--- NOTE | 2020-08-18 13:33 | HMH.PMPROC ---
- Procedure Date: 08/18/20 Time: 13:33 Anesthesiologist:: Joyce Johnson APRN Complications:: None Pre-procedure Diagnosis:: Degenerative disc disease lumbar spine with lumbar radiculopathy symptoms, degenerative disc disease cervical spine cervical radiculopathy symptoms Post-procedure Diagnosis:: Same Indications for Procedure:: Patient is a pleasant 45-year-old white male who has intrathecal pain pump. He is doing extremely well he has no lower back pain. He does have some neck pain. He finds it when he utilizes his boluses that this decreases. Patient currently has boluses every 6 hours. He is currently on a morphine infusion of 0.35 mg/day he denies side effects to his medication. Procedure Details:: Informed consent was obtained and the risk and benefits of the procedure were explained to the patient. The patient was taken to the procedure room where noninvasive monitoring was placed including noninvasive blood pressure cuff and pulse oximeter. Patient's pump was interrogated and reprogrammed. The infusion rate was left at 0.35 mg of morphine a day PTM was set up at 0.025 mg every 4 hours as needed.. The patient tolerated the procedure well. Plan and Disposition:: We will see the patient back at his next intrathecal pain pump refill and reprogram he has been instructed to call the office if he has any issues prior to his next appointment. Dr. Adams has reviewed this note and agrees with this plan of care. This note was dictated using voice recognition software and may contain errors or omissions
== END ==
PROVIDERS: PCP Family Medicine; Visit Provider Clinical Nurse Specialist Family Health
DX: M51.16 Intervertebral disc disorders with radiculopathy, lumbar region (principal); M50.10 Cervical disc disorder with radiculopathy, unspecified cervical region
CPT/HCPCS: 62368

== ENCOUNTER → 2020-09-26 11:29 | Outpatient (POV) | payer OTHER, SELFPAY ==
[2020-09-26 11:46] VITALS: BP 125/74; PULSE 65; RESP 18; O2SAT 98; BMI 33.9
--- NOTE | 2020-09-26 12:22 | HMH.PAINSOAP ---
[facility] Pain Management SOAP Note Subjective:: Patient is a pleasant 45-year-old white male who presents today for discussion in regards to his neck pain. Patient has an intrathecal pain pump and has no back pain whatsoever however he is having neck pain with radiation into his right arm. Patient states is worse when he is working. He rates it a 5 out of 10. I discussed both oral steroids and epidural injections with him he would like to start with oral steroids to see if these benefit him. If they do not we will move forward with an epidural steroid injection ROS General: no recent weight change, no fever, no sleep disturbances Respiratory: no cough, no shortness of air, no recurring pulmonary infections Cardiovascular/Peripheral Vascular: No chest pain, No palpitations, no edema, no shortness of breath. Gastrointestinal: no new onset incontinence, normal bowel movements reported Genitourinary: no new onset incontinence Musculoskeletal:neck pain, Arm pain Psychiatric: normal mood/ affect, Neurological: [denies new onset weakness in extremities], [denies new onset balance issues] Objective:: Physical Exam General: Alert and oriented x3, no acute distress, pleasant and cooperative, [on room air] Lungs: Resps E/U, Symmetrical chest expansion, Eyes: PERRL Musculoskeletal: Flexion and extension of cervical spine somewhat guarded secondary to pain, deep tendon reflexes normal, strength in upper and lower extremities [5/5], normal gait noted Neurological: speech clear, ginger farmer equal, no gross sensory deficits Assessment:: Degenerative disc disease lumbar spine lumbar radiculopathy symptoms, degenerative disc disease cervical spine cervical radiculopathy symptoms Plan:: We will start the patient on prednisone 20 mg 1 p.o. twice daily we will do this for 5 days if he does not get any relief we discussed post updated imaging and a epidural steroid injection. Patient is agreeable. I will follow-up with him at his next intrathecal pain pump refill and reprogram which is new this week. He has been instructed to call the office if he has any issues prior to his next appointment. Dr. Adams has reviewed this note and agrees with this plan of care. This note was dictated using voice recognition software and may contain errors or omissions [facility] History I have reviewed the patient's past medical history: Yes Medical History: Reports:: Anxiety, Arrhythmia, BPH, Gastroesophageal Reflux Disease(GERD), Hyperlipidemia, Hypertension, Lung Disease (SOA), Palpitations Denies:: Cancer, Diabetes Mellitus Type 1, Diabetes Mellitus Type 2, Internal Pacemaker, MRSA, Seizures *Have you ever received a pneumonia vaccine?: Yes *Have you received a flu vaccine this season?: Yes Other Medical History: Reports: Other. Denies: Blood Transfusion Reaction Laterality Cases: Bilateral: Tonsillectomy Other Surgeries: Yes: No Previous Surgery, Other (microdiscectomy L5-S1 2003). No: Pacemaker Amputation: No Fractures: Yes (L ankle) - *Social History Smoking Status: Never smoker Alcohol Intake: never Substance Use Type: denies use *Occupational Status:: other Housing: house Household Members: spouse, family *Travel in the last 8 weeks: None - Psychiatric History Pschychiatric History:: Reports:: Anxiety Family Hx:: Unable to obtain
== END ==
PROVIDERS: PCP Family Medicine; Visit Provider Clinical Nurse Specialist Family Health
DX: M51.16 Intervertebral disc disorders with radiculopathy, lumbar region (principal); M50.10 Cervical disc disorder with radiculopathy, unspecified cervical region
CPT/HCPCS: 99212; G0463

== ENCOUNTER 2020-10-10 12:47 | Day surgery (SDC) | payer OTHER, SELFPAY ==
[2020-10-10 13:07] VITALS: BP 131/71; PULSE 97; RESP 18; TEMP 36.6; O2SAT 998; BMI 36604.0
[2020-10-10 13:09] VITALS: BP 172/90; PULSE 89; RESP 18
[2020-10-10 13:13] VITALS: BP 168/88; PULSE 88; RESP 18; O2SAT 99
--- NOTE | 2020-10-10 13:17 | HMH.PMPROC ---
- Procedure Date: 10/10/20 Time: 13:17 Anesthesiologist:: Joyce Johnson APRN Complications:: None Pre-procedure Diagnosis:: Degenerative disc disease lumbar spine lumbar radiculopathy, back pain Post-procedure Diagnosis:: Same Indications for Procedure:: Patient is a pleasant 45-year-old white male who presents today for intrathecal pain pump refill and reprogram he currently rates his pain a 3 out of 10 overall doing extremely well at his last visit he was having some increased neck pain this has since resolved. Patient's Kosta #[id number] reviewed. Patient was getting Soma from his primary care physician I cautioned him against this. He has DC'd this. He is having some urinary retention and sweating we will continue to monitor. We will continue his Flomax at 0.8 mg 1 p.o. daily. Procedure Details:: Informed consent was obtained and the risk and benefits of the procedure were explained to the patient. The patient was taken to the procedure room where noninvasive monitoring was placed including noninvasive blood pressure cuff and pulse oximeter. Patient's pump was interrogated. The area over the pump was cleansed with chlorhexidine as a cleansing solution. In sterile fashion the pump was accessed with a 22-gauge needle. Approximately 12 mL's were removed of the pump solution and discarded appropriately. The pump was then refilled with 20 mL's of morphine 5 mg/mL. The needle was withdrawn and a bandage was placed over the puncture site. The infusion rate was reprogrammed to continue at 0.35 mg/day. The patient tolerated the procedure well. Plan and Disposition:: We will see the patient back at his next intrathecal pain pump refill and reprogram he has been instructed to call the office if he has any issues prior to his next appointment. Patient will continue on his Flomax 0.8 mg/day. If he is having worsening sweats he is to call the office. Dr. Adams has reviewed this note and agrees with this plan of care. This note was dictated using voice recognition software and may contain errors or omissions
[2020-10-10 13:34] VITALS: BP 127/78; PULSE 89; RESP 20; O2SAT 98
== END 2020-10-10 13:35 | disposition home or self-care (01) ==
LOC: SC.PAINP 12:48
PROVIDERS: PCP Family Medicine; Visit Provider Clinical Nurse Specialist Family Health
DX: M51.16 Intervertebral disc disorders with radiculopathy, lumbar region (principal); Z45.1 Encounter for adjustment and management of infusion pump; Z88.0 Allergy status to penicillin; Z88.1 Allergy status to other antibiotic agents; I10 Essential (primary) hypertension; E78.5 Hyperlipidemia, unspecified; K21.9 Gastro-esophageal reflux disease without esophagitis; F41.9 Anxiety disorder, unspecified; F32.9 Major depressive disorder, single episode, unspecified; Z79.899 Other long term (current) drug therapy
CPT/HCPCS: 95991

== ENCOUNTER → 2021-01-02 12:38 | Outpatient (POV) | payer OTHER, SELFPAY ==
[2021-01-02 12:57] VITALS: BP 131/76; PULSE 100; RESP 20; TEMP 36.7; O2SAT 97; BMI 39.3
--- NOTE | 2021-01-02 13:09 | P.PCN_ITS ---
- Procedure Date: 01/02/21 Time: 13:09 Anesthesiologist:: Celia Lafleur APRN Complications:: None Pre-procedure Diagnosis:: Disease lumbar spine with lumbar radiculopathy symptoms Post-procedure Diagnosis:: Same Indications for Procedure:: Patient is a pleasant 45-year-old white male who presents today for intrathecal pain pump adjustment. He has been treated for degenerative disc disease lumbar spine with lumbar radiculopathy symptoms. He is also complaining of severe neck pain at this time. He has has undergone injective therapy to his cervical spine in the past has got between 80 to 90% relief for 3 to 4 weeks relief. He is complaining of neck pain radiating into bilateral upper extremities and numbness and tingling in bilateral hands. He rates his pain a 7 out of 10 today. He takes Flexeril but says it does make him too drowsy. He is also taking Flomax 0.8 mg 1 tablet p.o. daily. This is giving him relief of his urinary hesitancy symptoms. The patient is currently on 0.35 mg/day. Will increase him to see if he gets relief. Physical exam General: Alert and oriented x3, no acute distress, pleasant and cooperative, [on room air] Lungs: Respirations even and unlabored, symmetrical chest expansion Eyes: PERRL Musculoskeletal: Flexion and extension of lumbar spine somewhat guarded secondary to pain, deep tendon reflexes normal, strength in upper and lower extremities [5/5], [abnormal gait noted] Neurological: Speech clear, retail marketing executive equal, no gross sensory deficit Procedure Details:: Informed consent was obtained and the risk and benefits of the procedure were explained to the patient. Patient was taken to the procedure room where noninvasive monitoring was placed including noninvasive blood pressure cuff and pulse oximeter. Patient's pump was interrogated and was reprogrammed to 0.4 mg/day. The patient tolerated the procedure well with no complications. Plan and Disposition:: Patient has been instructed to contact the clinic with any concerns before the next appointment. Dr. Adams has reviewed this note and agrees with this plan of care. This note was dictated using voice recognition software and make contain errors or omissions.
== END ==
PROVIDERS: PCP Family Medicine; Visit Provider Clinical Nurse Specialist Family Health
DX: M51.16 Intervertebral disc disorders with radiculopathy, lumbar region (principal)
CPT/HCPCS: 62368

== ENCOUNTER → 2021-01-20 11:45 | Day surgery (SDC) | payer OTHER, SELFPAY ==
[2021-01-20 12:30] VITALS: BP 120/74; PULSE 91; RESP 18; TEMP 36.6; O2SAT 98; BMI 39.3
[2021-01-20 14:24] VITALS: BP 139/87; PULSE 84; RESP 18; O2SAT 97
[2021-01-20 14:25] VITALS: BP 133/86; PULSE 84; RESP 18; O2SAT 97
--- NOTE | 2021-01-20 15:21 | P.PCN_ITS ---
- Procedure Date: 01/20/21 Time: 15:21 Anesthesiologist:: Dagmar Gray MD Complications:: None Pre-procedure Diagnosis:: Degenerative disc disease of lumbar spine, lumbar radiculopathy Post-procedure Diagnosis:: Same Indications for Procedure:: Patient is a very pleasant 45-year-old white male who presents today with chronic neck pain and arm pain related to the above diagnosis. Of note, he has an intrathecal pain pump well. He states that overall his pain is fairly well managed with this. He also notes numbness and tingling in his hands as well as the neck and arm pain. He takes Flexeril but he is not able to take much because it makes him drowsy. He has trialed and failed conservative treatment including oral pain medications and physical therapy for greater than 6 weeks. Plan for today is for him to undergo cervical epidural steroid injection at C7- T1. Procedure Details:: Cervical epidural steroid injection under fluoroscopy Informed consent was obtained and the risks and benefits of the procedure was explained to the patient. The patient was taken to the procedure room placed prone on the procedure table. The neck was prepped using ChloraPrep. The skin and subcutaneous tissues were anesthetized using lidocaine. I placed a 18-gauge epidural needle into the C7-T1 interspace and advanced using [id number] to air and fluoroscopic guidance. After confirmation of needle placement in the epidural space with dye, I injected 3 mL's lidocaine 1.5% and Depo-Medrol 80 mg. The patient tolerated the procedure well with no complications. Plan and Disposition:: We will follow-up with this patient in 2 weeks. Will reevaluate pain symptoms at that time.
== END ==
PROVIDERS: PCP Family Medicine; Visit Provider Anesthesiology Pain Medicine
DX: M51.16 Intervertebral disc disorders with radiculopathy, lumbar region (principal); E78.5 Hyperlipidemia, unspecified; R00.2 Palpitations; I10 Essential (primary) hypertension; K21.9 Gastro-esophageal reflux disease without esophagitis; F41.9 Anxiety disorder, unspecified; I49.9 Cardiac arrhythmia, unspecified; Z79.899 Other long term (current) drug therapy; F32.9 Major depressive disorder, single episode, unspecified; Z88.0 Allergy status to penicillin; Z88.8 Allergy status to other drugs, medicaments and biological substances; Z88.1 Allergy status to other antibiotic agents
CPT/HCPCS: 62321; J1040; Q9966

== ENCOUNTER 2021-02-06 12:52 | Day surgery (SDC) | payer OTHER, SELFPAY ==
[2021-02-06 13:06] VITALS: BP 139/84; PULSE 100; RESP 19; TEMP 36.4; O2SAT 98; BMI 85.2
[2021-02-06 13:42] VITALS: BP 141/85; PULSE 99; RESP 18; O2SAT 95
[2021-02-06 13:45] VITALS: BP 141/85; PULSE 95; RESP 18; O2SAT 97
[2021-02-06 13:56] VITALS: BP 124/80; PULSE 87; RESP 20; O2SAT 98
--- NOTE | 2021-02-06 14:07 | P.PCN_ITS ---
- Procedure Date: 02/06/21 Time: 14:00 Anesthesiologist:: Celia Lafleur APRN Complications:: None Pre-procedure Diagnosis:: Generative disc disease lumbar spine with lumbar radiculopathy symptoms Post-procedure Diagnosis:: Same Indications for Procedure:: Patient is a 45-year-old white male who presents today for intrathecal pain pump refill and reprogram. He has been treated for degenerative disc disease lumbar spine with lumbar radiculopathy symptoms. He is doing well at this time with his intrathecal therapy. He did get undergo a cervical epidural steroid action on 01/20/2021. He got significant relief with the injection, up to 80% relief. He is still doing well. He does not need any changes to his intrathecal therapy at this time. He is on morphine at 0.4 mg/day with no side effects. We will refill his intrathecal pump today. Kosta and drug screen have been appropriate. Physical exam General: Alert and oriented x3, no acute distress, pleasant and cooperative, [on room air] Lungs: Respirations even and unlabored, symmetrical chest expansion Eyes: PERRL Musculoskeletal: Flexion and extension of cervical and lumbar spine somewhat guarded secondary to pain, deep tendon reflexes normal, strength in upper and lower extremities [5/5], [abnormal gait noted] Neurological: Speech clear, transactional paralegal equal, no gross sensory deficit Procedure Details:: Informed consent was obtained and the risk and benefits of the procedure were explained to the patient. The patient was taken to the procedure room where noninvasive monitoring was placed including noninvasive blood pressure cuff and pulse oximeter. Patient's pump was interrogated. The area over the pump was cleansed with chlorhexidine as a cleansing solution. In sterile fashion the pump was accessed with a 22-gauge needle. Approximately 5 mls of the pump solution was removed and discarded appropriately. The pump was then refilled with 20 mL's of morphine milligrams per ml. The needle was withdrawn and a bandage was placed over the puncture site. The infusion rate was reprogrammed at morphine 0.4 mg/day. The patient tolerated well with no complication. Plan and Disposition:: We will see the patient back at his next intrathecal refill. He has been instructed to contact clinic if he has any concerns for his next appointment. Patient has been instructed to contact the clinic with any concerns before the next appointment. Dr. Adams has reviewed this note and agrees with this plan of care. This note was dictated using voice recognition software and make contain errors or omissions.
== END 2021-02-06 13:57 | disposition home or self-care (01) ==
LOC: SC.PAINP 12:52
PROVIDERS: PCP Family Medicine; Visit Provider Clinical Nurse Specialist Family Health
DX: M51.16 Intervertebral disc disorders with radiculopathy, lumbar region (principal); Z45.1 Encounter for adjustment and management of infusion pump; E78.5 Hyperlipidemia, unspecified; R00.2 Palpitations; I10 Essential (primary) hypertension; K21.9 Gastro-esophageal reflux disease without esophagitis; F41.9 Anxiety disorder, unspecified; Z88.0 Allergy status to penicillin; Z88.1 Allergy status to other antibiotic agents; Z88.8 Allergy status to other drugs, medicaments and biological substances; Z79.899 Other long term (current) drug therapy
CPT/HCPCS: 95991

== ENCOUNTER → 2021-04-28 11:48 | Outpatient (CLI) | payer OTHER, SELFPAY | PROVIDERS: PCP Family Medicine; Visit Provider Nurse Practitioner | DX: Z20.822 Contact with and (suspected) exposure to COVID-19 (principal) | CPT/HCPCS: C9803; U0003; U0005 ==

== ENCOUNTER → 2021-05-11 10:13 | Outpatient (POV) | payer OTHER, SELFPAY ==
[2021-05-11 10:35] VITALS: BP 170/93; PULSE 95; RESP 18; O2SAT 97; BMI 38.6
--- NOTE | 2021-05-11 10:43 | HMH.PAINSOAP ---
[facility] Pain Management SOAP Note Subjective:: Patient is a 45-year-old white male who presents today for complaints of right-sided neck pain with radiation into his right shoulder. He does rate his pain a 6 out of 10. He says that it feels like it is musculoskeletal in nature. He does take Flexeril which does not seem to be giving him much relief. He has had cervical epidural steroid injections in the past which gave him significant relief. He is unsure if he wants to proceed with injective therapy at this time, however. He does have an intrathecal pump with morphine intrathecal therapy for his lumbar spine. He also undergoes injective therapy of his lumbar spine. As well. He reports the pain to be worse with movement. 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 This worsens his pain. He is not having any numbness or tingling at this time. The pain is primarily in the neck and right shoulder. Review of Systems General: No recent weight changes, no fever, no sleep disturbances Respiratory: No cough, no shortness of air, no recurring pulmonary infections Cardiovascular/peripheral vascular: No chest pain, no palpitations, no edema, no shortness of breath Gastrointestinal: No new onset incontinence, normal bowel movements reported Genitourinary: No new onset incontinence Musculoskeletal: Neck pain, right shoulder pain Psychiatric: [Normal mood/affect] Neurological: [Denies weakness in extremities], [denies balance issues] Objective:: Physical exam General: Alert and oriented x3, no acute distress, pleasant and cooperative Lungs: Respirations even and unlabored, symmetrical chest expansion Eyes: PERRL Musculoskeletal: Flexion and extension of cervical [spine] and right shoulder somewhat guarded secondary to pain, normal gait noted Neurological: Speech clear, no gross sensory deficit Assessment:: Degenerative disc disease cervical and lumbar spine with cervical lumbar radiculopathy symptoms, right shoulder pain Plan:: We will order the patient prednisone 20 mg 1 tablet p.o. twice daily for 5 days. We we will see the patient back in the clinic on Saturday for pump refill and we will reevaluate his symptoms at that time. Patient has been instructed to contact the clinic with any concerns before the next appointment. Dr. Adams has reviewed this note and agrees with this plan of care. This note was dictated using voice recognition software and make contain errors or omissions. [facility] History I have reviewed the patient's past medical history: Yes Medical History: Reports:: Anxiety, Arrhythmia, BPH, Gastroesophageal Reflux Disease(GERD), Hyperlipidemia, Hypertension, Lung Disease (SOA), Palpitations Denies:: Cancer, Diabetes Mellitus Type 1, Diabetes Mellitus Type 2, Internal Pacemaker, MRSA, Seizures *Have you ever received a pneumonia vaccine?: No *Have you received a flu vaccine this season?: No Other Medical History: Reports: Other. Denies: Blood Transfusion Reaction Laterality Cases: Bilateral: Tonsillectomy Other Surgeries: Yes: No Previous Surgery, Other (microdiscectomy L5-S1 2003). No: Pacemaker Amputation: No Fractures: Yes (L ankle) - *Social History Smoking Status: Never smoker Alcohol Intake: never Substance Use Type: denies use *Occupational Status:: employed Housing: house Household Members: spouse *Travel in the last 8 weeks: None - Psychiatric History Pschychiatric History:: Reports:: Anxiety Family Hx:: Unable to obtain
== END ==
PROVIDERS: Visit Provider Clinical Nurse Specialist Family Health
DX: M50.10 Cervical disc disorder with radiculopathy, unspecified cervical region (principal); M25.511 Pain in right shoulder
CPT/HCPCS: 99212; G0463

== ENCOUNTER 2021-05-22 12:55 | Day surgery (SDC) | payer OTHER, SELFPAY ==
[2021-05-22 13:05] VITALS: BP 140/89; PULSE 102; RESP 20; TEMP 37.1; O2SAT 93; BMI 38.0
[2021-05-22 13:42] VITALS: BP 142/81; PULSE 99; RESP 18; O2SAT 95
[2021-05-22 13:44] VITALS: BP 125/81; PULSE 95; RESP 18; O2SAT 95
--- NOTE | 2021-05-22 13:49 | HMH.PMPROC ---
- Procedure Date: 05/22/21 Time: 13:50 Anesthesiologist:: Celia Lafleur APRN Complications:: None Pre-procedure Diagnosis:: Degenerative disc disease lumbar spine with lumbar radiculopathy symptoms, degenerative disc disease cervical spine with cervical radiculopathy symptoms, worsening neck pain Post-procedure Diagnosis:: Same Indications for Procedure:: Patient is a 45-year-old white male who presents today for intrathecal pain pump refill and reprogram. He is complaining of worsening neck pain. The patient says that he is having numbness and tingling in bilateral upper extremities as well. He does rate his pain a 6 out of 10. He is currently on morphine at 0.4 mg/day and would like an increase. He denies any side effects to the medication. Kosta and drug screen are appropriate. Physical exam General: Alert and oriented x3, no acute distress, pleasant and cooperative Lungs: Respirations even and unlabored, symmetrical chest expansion Eyes: PERRL Musculoskeletal: Flexion and extension of lumbar [spine] somewhat guarded secondary to pain, [antalgic gait noted] Neurological: Speech clear, no gross sensory deficit Procedure Details:: Informed consent was obtained and the risk and benefits of the procedure were explained to the patient. The patient was taken to the procedure room where noninvasive monitoring was placed including noninvasive blood pressure cuff and pulse oximeter. Patient's pump was interrogated. The area over the pump was cleansed with chlorhexidine as a cleansing solution. In sterile fashion the pump was accessed with a 22-gauge needle. Approximately 11 mls of the pump solution was removed and discarded appropriately. The pump was then refilled with 20 mL's of morphine 5 mg per male. The needle was withdrawn and a bandage was placed over the puncture site. The infusion rate was reprogrammed at morphine at 0.48 mg/day. The patient tolerated well with no complication. Plan and Disposition:: Patient is having worsening neck pain with radiation into bilateral upper extremities. He does have imaging that coincides with his pain. He has tried and failed physical therapy for greater than 6 weeks and continues with home stretching. He is also tried anti-inflammatories with minimal relief of well as ice and heat therapies. He has had injections in the past and gets up to 80% relief for 2 to 3 weeks after the injections. We will schedule him for cervical epidural steroid injection at C6-C7 area. He is not on any anticoagulation therapy and is not diabetic. Possible side effects of corticosteroids have been discussed with the patient. Risks and benefits of the procedure have been explained to the patient. Patient would like to proceed with the procedure. Patient has been instructed to contact the clinic with any concerns before the next appointment. Dr. Adams has reviewed this note and agrees with this plan of care. This note was dictated using voice recognition software and make contain errors or omissions. Risks and benefits of the medication have been explained in detail to the patient. The patient does understand the risk of dependence on the medication when given over a prolonged period. Patient has been advised of risks of oversedation with the prescribed medication. Narcan has been offered to the paitent in the event of oversedation. Patient has been advised that a family member should also be educated regarding administration of Narcan. The patient has been advised to consult with his/her primary care provider and pharmacist regarding drug-drug interaction of medications currently prescribed. Patient has been prescribed a controlled substance after being counseled on the medication, medication safety, and possible side effects. KOSTA report has been obtained and reviewed prior to prescription and found to be appropriate. Opioid contract was reviewed and signed by the patient, and brendon
[2021-05-22 14:03] VITALS: BP 135/80; PULSE 92; RESP 20; O2SAT 95
== END 2021-05-22 14:04 | disposition home or self-care (01) ==
LOC: SC.PAINP 12:55
PROVIDERS: PCP Family Medicine; Visit Provider Clinical Nurse Specialist Family Health
DX: M51.16 Intervertebral disc disorders with radiculopathy, lumbar region (principal); M50.10 Cervical disc disorder with radiculopathy, unspecified cervical region; Z45.1 Encounter for adjustment and management of infusion pump; E78.5 Hyperlipidemia, unspecified; I10 Essential (primary) hypertension; K21.9 Gastro-esophageal reflux disease without esophagitis; F41.9 Anxiety disorder, unspecified; N40.0 Benign prostatic hyperplasia without lower urinary tract symptoms; M19.90 Unspecified osteoarthritis, unspecified site
CPT/HCPCS: 62370

== ENCOUNTER 2021-05-26 13:25 | Day surgery (SDC) | payer OTHER, SELFPAY ==
[2021-05-26 13:30] VITALS: BP 136/88; PULSE 119; RESP 18; TEMP 36.3; O2SAT 95; BMI 38.0
[2021-05-26 13:47] VITALS: BP 136/78; PULSE 103; RESP 18; O2SAT 94
[2021-05-26 13:52] VITALS: BP 137/89; PULSE 99; RESP 18; O2SAT 95
--- NOTE | 2021-05-26 13:57 | HMH.PMPROC ---
- Procedure Date: 05/26/21 Time: 13:57 Anesthesiologist:: Brooks Adams MD Complications:: None Pre-procedure Diagnosis:: Degenerative disc disease of the cervical spine with cervical radiculopathy symptoms Post-procedure Diagnosis:: Same Indications for Procedure:: This patient is a pleasant 45-year-old white male who we are treating for neck pain with cervical radicular symptoms. He has increasing pain in his neck radiating to both shoulders and both arms. He does well with his intrathecal pain pump. This is helped him significantly with his pain symptoms. Is being able to continue to work and take care of the activities of daily living. We will do a cervical epidural steroid injection today to see if this helps with his neck pain with radicular symptoms. Procedure Details:: Cervical epidural steroid injection under fluoroscopy Informed consent was obtained and the risks and benefits of the procedure was explained to the patient. The patient was taken to the procedure room placed prone on the procedure table. The neck was prepped using ChloraPrep. The skin and subcutaneous tissues were anesthetized using lidocaine. I placed a 18-gauge epidural needle into the C5-C6 interspace and advanced using [id number] to air and fluoroscopic guidance. After confirmation of needle placement in the epidural space with dye, I injected 3 mL's lidocaine 1.5% and Depo-Medrol 80 mg. The patient tolerated the procedure well with no complications. Plan and Disposition:: We will follow-up with him in 2 weeks. Will reevaluate symptoms at that time.
[2021-05-26 14:03] VITALS: BP 147/85; PULSE 102; RESP 20; O2SAT 94
== END 2021-05-26 14:03 | disposition home or self-care (01) ==
LOC: SC.PAINP 13:25
PROVIDERS: PCP Family Medicine; Visit Provider Anesthesiology
DX: M50.10 Cervical disc disorder with radiculopathy, unspecified cervical region (principal); I10 Essential (primary) hypertension; E78.5 Hyperlipidemia, unspecified; K21.9 Gastro-esophageal reflux disease without esophagitis; M19.90 Unspecified osteoarthritis, unspecified site; F41.9 Anxiety disorder, unspecified; Z88.0 Allergy status to penicillin; Z88.1 Allergy status to other antibiotic agents; Z88.8 Allergy status to other drugs, medicaments and biological substances
CPT/HCPCS: 62321; J1040; Q9966

== ENCOUNTER 2021-06-05 13:43 | Emergency (ER) | payer OTHER, SELFPAY ==
[2021-06-05 14:25] VITALS: BP 143/86; PULSE 80; RESP 19; TEMP 36.8; O2SAT 96; BMI 39.3
--- NOTE | 2021-06-05 14:48 | HMH.EDUTC ---
[facility] [place] Clinical Impression: Sinusitis Qualifiers: Sinusitis location: unspecified location Chronicity: unspecified Qualified Code(s): J32.9 - Chronic sinusitis, unspecified Disposition: Home, Self-Care Condition on Discharge: Good Additional Instructions: *Monitor Temp, Over the counter Motrin or Tylenol as directed/as needed Tylenol every 4 hours and Motrin every 6 hours (as long as your family doctor has told you that you can take it) for fever or pain. and straight to ER if unable to lower temp less than 101.0 after medication given *Warm salt water gargles may help to soothe the throat *Throat Lozenges *Warm fluids like tea with honey may help to soothe the throat *Sleep elevated *Humidifier/Vaporizer *Flonase 2 sprays in each nostril daily but be aware that it may take 2-3 days before you notice improvement *Bromfed may cause drowsiness. Know how it effects you (your child) before driving, caring for small child, or sending your child to school. Not other antihistamines/allergy medications while taking bromfed Your throat swab was sent for culture. Those results are typically sent to your primary care. Be sure to follow up in 2-3 days with your family doctor/primary care physician if no improvement so they can review those result and treat if necessary. If you don?t have a primary care doctor, I recommend you get one but in the mean time, you will have to return to a walk in clinic Follow up IMMEDIATELY for new or worsening symptoms or no Noticeable improvement over the next 48-72 hours. 911 for difficulty breathing or swallowing You were tested for today for COVID19 your test result should be back in the next 24-48 hours, you may check your results on the [facility] My health portal if you have trouble logging on or seeing your results you may call You was given a handout with instructions for Self Quarantine and Self isolation for while you wait on test results and what to do if they are positive If you are positive the Health Dept will be contacting you also Make sure to take your Vitamins Vit. C Vit D and Zinc if you can take them Prescriptions: methylPREDNISolone [Medrol 4mg tab] 4 mg PO DIRECTED #21 tab Transmission Status: [facility] Azithromycin [Z-Miky 250mg Tab] 250 mg PO DIRECTED #6 tab Transmission Status: P[facility] to [facility] Referrals: Magdaleno Laureano MD [Primary Care Provider] - As needed Forms: Work/School Release Time of Disposition: 15:14 Medical Decision Making - Kosta Inquiry Pt receiving controlled substance: No Kosta was queried for this patient: No Vital Signs: 06/05/21 14:25 Temperature 98.3 F Temperature Source Oral Pulse Rate [Right Brachial] 80 Respiratory Rate 19 Blood Pressure [Right Arm] 143/86 H Blood Pressure Mean [Right Arm] 105 Blood Pressure Source [Right Arm] Automatic Cuff Blood Pressure Position [Right Arm] Sitting 02 Sat by Pulse Oximetry 96 Oxygen Delivery Method Room Air - Lab Data Lab results reviewed: Yes: I reviewed the patient's lab results. Orders (Tests/Meds): ORDERS Category Date Time Status Covid-19 Nasal PCR ([facility]) Routine Lab 06/05/21 14:28 Received Medical Decision Narrative: Patient states that he is allergic to erythromycin but has taken azithromycin in the past without complications or reactions Patient report has taken Medrol dose pack in the past without reactions or complications [facility] [place] - General Stated complaint: Sore Throat Congestion Time Seen by Provider: 06/05/21 14:48 Mode of Arrival: Ambulatory Source of Information: Patient Limitations: No Limitations Description of Symptoms (Recalled from Triage Doc. by RN): PATIENT C/O EAR PAIN, SORE THROAT, AND FATIGUE THAT STARTED THIS MORNING HEENT Symptoms (Recalled from RN notes): Yes Resp Symptoms (Recalled from RN notes): No Skin Symptoms (Recalled from RN notes): No MS Symptoms (Recalled from RN notes): No Functional Status
[2021-06-05 15:06] LABS: UTC Strep Screen (Rapid) Negative (Negative)
[2021-06-05 15:19] VITALS: BP 143/86; PULSE 80; RESP 19; TEMP 36.8; O2SAT 96
== END 2021-06-05 15:28 | disposition home or self-care (01) ==
PROVIDERS: Emergency Provider Nurse Practitioner; PCP Family Medicine
DX: J32.9 Chronic sinusitis, unspecified (principal); K21.9 Gastro-esophageal reflux disease without esophagitis; E78.5 Hyperlipidemia, unspecified; I10 Essential (primary) hypertension; F41.9 Anxiety disorder, unspecified; Z20.822 Contact with and (suspected) exposure to COVID-19
CPT/HCPCS: 87880; 99203; C9803; G0463; U0003; U0005

== ENCOUNTER → 2021-06-26 13:41 | Outpatient (POV) | payer OTHER, SELFPAY ==
[2021-06-26 14:06] VITALS: BP 148/89; PULSE 112; RESP 20; TEMP 36.3; O2SAT 93; BMI 38.0
--- NOTE | 2021-06-26 14:08 | HMH.PAINSOAP ---
[facility] Pain Management SOAP Note Subjective:: Patient is a 46-year-old white male who presents today for follow-up. He recently had a cervical epidural steroid injection which she got 70% relief. He says he is still doing well since the injection. He is complaining of some generalized pain at his intrathecal pump site. He says that it is a soreness that is new for him. He does rate his pain a 4 out of 10 today. Review of Systems General: No recent weight changes, no fever, no sleep disturbances Respiratory: No cough, no shortness of air, no recurring pulmonary infections Cardiovascular/peripheral vascular: No chest pain, no palpitations, no edema, no shortness of breath Gastrointestinal: No new onset incontinence, normal bowel movements reported Genitourinary: No new onset incontinence Musculoskeletal: Chronic neck and low back pain Psychiatric: [Normal mood/affect] Neurological: [Denies weakness in extremities], [denies balance issues] Objective:: Physical exam General: Alert and oriented x3, no acute distress, pleasant and cooperative Lungs: Respirations even and unlabored, symmetrical chest expansion Eyes: PERRL Musculoskeletal: Flexion and extension of cervical and lumbar [spine] somewhat guarded secondary to pain, [antalgic gait noted] Neurological: Speech clear, no gross sensory deficit Assessment:: 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 We will plan to follow-up with him at his next intrathecal refill appointment. He has been instructed to contact the clinic if he has any concerns for appointment. We did review his previous MRI from 2019 of his lumbar spine today. Patient has been instructed to contact the clinic with any concerns before the next appointment. Dr. Adams has reviewed this note and agrees with this plan of care. This note was dictated using voice recognition software and make contain errors or omissions. [facility] History I have reviewed the patient's past medical history: Yes Medical History: Reports:: Anxiety, Arrhythmia, BPH, Gastroesophageal Reflux Disease(GERD), Hyperlipidemia, Hypertension, Lung Disease (SOA), Palpitations Denies:: Cancer, Diabetes Mellitus Type 1, Diabetes Mellitus Type 2, Internal Pacemaker, MRSA, Seizures *Have you ever received a pneumonia vaccine?: No *Have you received a flu vaccine this season?: No Other Medical History: Reports: Arthritis, Other. Denies: Blood Transfusion Reaction Laterality Cases: Bilateral: Tonsillectomy Other Surgeries: Yes: No Previous Surgery, Other (microdiscectomy L5-S1 2003). No: Pacemaker Amputation: No Fractures: Yes (L ankle) - *Social History Smoking Status: Never smoker Alcohol Intake: never Substance Use Type: denies use *Occupational Status:: other Housing: house Household Members: spouse *Travel in the last 8 weeks: None - Psychiatric History Pschychiatric History:: Reports:: Anxiety Family Hx:: Unable to obtain
== END ==
PROVIDERS: Visit Provider Clinical Nurse Specialist Family Health
DX: M50.10 Cervical disc disorder with radiculopathy, unspecified cervical region (principal)
CPT/HCPCS: 99212; G0463

== ENCOUNTER → 2021-07-05 11:52 | Outpatient (CLI) | payer OTHER, SELFPAY ==
[2021-07-05 12:29] LABS: Basophils # 0.1 K/mm3 (0-0.2); Basophils % 0.8 % (0.1-2.0); Eosinophils # 0.4 K/mm3 (0.0-0.4); Eosinophils % 5.2 % (0.1-12.0); Hematocrit 45.7 % (42.0-52.0); Hemoglobin 15.5 g/dL (14.1-18.0); Lymphocytes # 2.7 K/mm3 (0.7-4.5); Lymphocytes % 32.1 % (10-50); Mean Corpuscular HGB Conc 33.9 g/dL (31.8-35.4); Mean Corpuscular Volume 82.5 fl (80-94); Mean Platelet Volume 7.9 fl (7.4-10.4); Monocytes # 0.6 K/mm3 (0.1-1.0); Monocytes % 7.3 % (1.7-9.3); Neutrophils # 4.6 K/mm3 (1.8-7.8); Neutrophils % 54.7 % (37.0-80.0); Platelet Count 341 K/mm3 (142-424); Red Blood Count 5.54 M/mm3 (4.60-6.20); Red Cell Distribution Width 13.7 % (11.5-17.5); White Blood Count 8.4 K/mm3 (4.8-10.8)
[2021-07-05 13:15] LABS: Alanine Aminotransferase 53 U/L (12-78); Albumin Level 4.1 g/dl (3.5-5.0); Albumin/Globulin Ratio 1.5 (1.1-1.8); Alkaline Phosphatase 113 U/L (38-126); Anion Gap 6.6 mEq/L (5-15); Aspartate Amino Transferase 47 U/L (17-59); Blood Urea Nitrogen 9 mg/dl (9-20); Calcium 9.3 mg/dl (8.4-10.2); Carbon Dioxide 35 mmol/L (22.0-30.0); Chloride 98 mmol/L (98-107); Cholesterol 168 mg/dl (140-200); Estimated Glomerular Filt Rate 72 ml/min (>60); GFR (African American) 87 ML/MIN (>60); Globulin 2.7 g/dL (1.3-3.2); Glucose 118 mg/dl (74-100); HDL Cholesterol 28 mg/dl (40-60); Potassium 3.6 mmoL/L (3.5-5.1); Sodium 136 mmol/L (136-145); Total Protein,Serum 6.8 g/dl (6.3-8.2); Triglycerides 285 mg/dl (30-150); VLDL Cholesterol 57 mg/dL (0-40)
[2021-07-05 13:26] LABS: Direct LDL Cholesterol 96.97 mg/dL (100-129)
[2021-07-05 13:35] LABS: 25-OH Vitamin D, Total 20.1 ng/mL (30-100)
[2021-07-05 13:45] LABS: Thyroid Stimulating Hormone 1.76 uIU/mL (0.465-4.68)
[2021-07-05 15:12] LABS: Vitamin B12 > 1000 pg/mL (239-931)
[2021-07-06 08:16] LABS: Testosterone,Total 534 ng/dL (264-916)
== END ==
PROVIDERS: PCP Physician Assistant; Visit Provider Physician Assistant
DX: R06.09 Other forms of dyspnea (principal); R07.89 Other chest pain; R00.2 Palpitations; R00.0 Tachycardia, unspecified; I10 Essential (primary) hypertension; I44.5 Left posterior fascicular block; E78.2 Mixed hyperlipidemia; K21.9 Gastro-esophageal reflux disease without esophagitis; R94.31 Abnormal electrocardiogram [ECG] [EKG]
CPT/HCPCS: 36415; 80053; 80061; 82306; 82607; 84403; 84443; 85025; 93270

== ENCOUNTER → 2021-07-20 10:57 | Outpatient (POV) | payer OTHER, SELFPAY ==
[2021-07-20 11:29] VITALS: BP 131/87; PULSE 105; RESP 18; O2SAT 95; BMI 38.6
--- NOTE | 2021-07-20 12:27 | HMH.PMPROC ---
- Procedure Date: 07/20/21 Time: 11:00 Anesthesiologist:: Celia Lafleur APRN Complications:: None Pre-procedure Diagnosis:: Degenerative disc disease lumbar spine with lumbar radiculopathy symptoms, neck pain, degenerative disc disease cervical spine cervical radiculopathy symptoms, low back pain Post-procedure Diagnosis:: Same Indications for Procedure:: Patient is a pleasant 46-year-old white male who presents today for intrathecal pain pump reprogram]. The patient is being treated for chronic neck and low back pain. He does report that he did a great deal of walking at [facility] for many hours. Following the day walking he began to develop significant low back pain. The pain is in bilateral low back area. The pain initially started on the right side prompting the patient to have concern for kidney stone. The pain progressively worsened and did travel to the left side. He says that the pain is significant at this time. He is also having a great deal of neck pain with radicular symptoms into his right upper extremity. He does have numbness and tingling into his right hand. He has not had any recent imaging of his cervical spine. He is currently on intrathecal therapy at 0.48 mg/day. He would like an increase in his dose. He is driving himself today and will not be able to have a bolus prior to leaving the clinic. Patient rates pain a 6 out of 10 out of 10. Drug screen is appropriate. Kosta has been reviewed and is appropriate. Physical exam General: Alert and oriented x3, no acute distress, pleasant and cooperative, [on room air] Lungs: Respirations even and unlabored, symmetrical chest expansion Eyes: PERRL Musculoskeletal: Flexion and extension of cervical and lumbar [spine] somewhat guarded secondary to pain, [antalgic gait noted] Neurological: Speech clear, no gross sensory deficit Procedure Details:: Informed consent was obtained and the risk and benefits of the procedure were explained to the patient. Patient was taken to the procedure room where noninvasive monitoring was placed including noninvasive blood pressure cuff and pulse oximeter. Patient's pump was interrogated and was reprogrammed to increase to 0.62 mg/day. The patient tolerated the procedure well with no complications. Plan and Disposition:: We will order an MRI of the patient cervical spine. We will see if the increase helped him. We will plan to follow-up with him after the MRI to discuss a further plan of care and at his next intrathecal refill. He has been advised he can contact clinic if he has any concerns for his next appointment. Patient has been instructed to contact the clinic with any concerns before the next appointment. Dr. Adams has reviewed this note and agrees with this plan of care. This note was dictated using voice recognition software and make contain errors or omissions.
== END ==
PROVIDERS: Visit Provider Clinical Nurse Specialist Family Health
DX: M51.16 Intervertebral disc disorders with radiculopathy, lumbar region (principal); M50.10 Cervical disc disorder with radiculopathy, unspecified cervical region; Z45.1 Encounter for adjustment and management of infusion pump
CPT/HCPCS: 62368

== ENCOUNTER → 2021-07-26 14:18 | Outpatient (CLI) | payer OTHER, SELFPAY | PROVIDERS: PCP Physician Assistant; Visit Provider Nurse Practitioner Family | DX: R06.09 Other forms of dyspnea (principal); R07.89 Other chest pain; R00.2 Palpitations; R00.0 Tachycardia, unspecified; I44.5 Left posterior fascicular block; R94.31 Abnormal electrocardiogram [ECG] [EKG]; I10 Essential (primary) hypertension; E78.2 Mixed hyperlipidemia; K21.9 Gastro-esophageal reflux disease without esophagitis | CPT/HCPCS: 93306 ==

== ENCOUNTER → 2021-08-02 13:16 | Outpatient (CLI) | payer OTHER, SELFPAY ==
--- NOTE | 2021-08-02 13:21 | MR_ITS ---
FINAL REPORT CLINICAL HISTORY: .Pt c/o neck pain with rt upper extremity numbness and tingling. Pt denies injury or trauma FINDINGS: Multi planar MR imaging was obtained of the cervical spine. There is abnormal decreased signal throughout the cervical discs. There is moderate loss of height at C5-6. There is no malalignment. The cervical cord demonstrates normal signal and configuration. C2-C3: There is no evidence of significant disc bulge or protrusion. There is no significant facet hypertrophy. C3-C4: There is a left paracentral disc protrusion. There is mild to moderate compromise of the left side of the spinal canal. There is mild left neuroforaminal narrowing. C4-C5: There is no evidence of significant disc bulge or protrusion. There is no significant facet hypertrophy. C5-C6: There is a moderate diffuse disc bulge. There is endplate hypertrophy. There is moderate to high-grade bilateral neuroforaminal narrowing. C6-C7: There is no evidence of significant disc bulge or protrusion. There is no significant facet hypertrophy. C7-T1: There is no evidence of significant disc bulge or protrusion. There is no significant facet hypertrophy. IMPRESSION: 1. Left paracentral disc protrusion at C3-4 resulting in compromise of the left side of the spinal canal. 2. Diffuse disc bulge and endplate hypertrophy at C5-6 with moderate to high-grade bilateral neuroforaminal narrowing, right greater than left. Reviewed, Interpreted and Dictated by Maciej Eric MD Transcribed by Ness Dudley Authenticated by Maciej Eric MD on 08/02/2021 03:14:[address] [facility]
== END ==
PROVIDERS: PCP Physician Assistant; Visit Provider Clinical Nurse Specialist Family Health
DX: M54.2 Cervicalgia (principal)
CPT/HCPCS: 72141; 76376

== ENCOUNTER → 2021-08-28 13:10 | Outpatient (CLI) | payer OTHER, SELFPAY | PROVIDERS: Visit Provider Nurse Practitioner | DX: U07.1 COVID-19 (principal) | CPT/HCPCS: C9803; U0003; U0005 ==

== ENCOUNTER 2021-09-18 13:50 | Day surgery (SDC) | payer OTHER, SELFPAY ==
[2021-09-18 14:25] VITALS: BP 124/65; PULSE 77; RESP 18; O2SAT 95
[2021-09-18 14:26] VITALS: BP 120/62; BP 130/76; PULSE 79; RESP 18; RESP 20; TEMP 36.6; O2SAT 95; BMI 40.0
[2021-09-18 14:40] VITALS: BP 125/77; PULSE 77; RESP 20; O2SAT 97
--- NOTE | 2021-09-18 14:46 | HMH.PMPROC ---
- Procedure Date: 09/18/21 Time: 14:46 Anesthesiologist:: Dagmar Gray MD Complications:: None Pre-procedure Diagnosis:: Degenerative disc disease of lumbar spine with lumbar radiculopathy Post-procedure Diagnosis:: Same Indications for Procedure:: This patient is a very pleasant 46-year-old white male who presents today for intrathecal pump refill and reprogram. He has a pump with a flow Reginaldo system. He is currently being treated for degenerative disease of lumbar spine with lumbar radiculopathy. He states that his current pump settings are adequately managing his chronic pain symptoms. Therefore we will perform a intrathecal pump refill and reprogram today under fluoroscopy without any changes to his pump dose settings. Of the cervical spine was recently performed which demonstrated left paracentral disc protrusion at the C3-C4 with mild to moderate compromise of the left side of the spinal canal. There is normal signal and configuration of the cervical cord. At C5-C6 there is moderate disc bulging diffusely with endplate hypertrophy and high-grade bilateral neural foraminal narrowing on the right greater than the left. Procedure Details:: Informed consent was obtained and the risks and benefits of the procedure was explained to the patient. The patient was taken to the procedure room. The pump was interrogated. The area over the pump was prepped using ChloraPrep. The pump was accessed with a 22-gauge needle. Approximately 5 mL's of the intrathecal solution was withdrawn and discarded. The pump was then refilled with 20 mL's of intrathecal morphine 5 mcg/mL]. The pump was interrogated and the infusion was continued at 0.57 mg/day on constant flow and PTC bolusing. The patient tolerated the procedure well with no complications. Next refill date is on December 21, 2021 Plan and Disposition:: We will follow-up with this patient on or before the next pump refill appointment make any pump adjustments at that time if indicated. I discussed with the patient the patient contact the clinic sooner should any issues arise.
== END 2021-09-18 14:41 | disposition home or self-care (01) ==
LOC: SC.PAINP 13:50
PROVIDERS: PCP Physician Assistant; Visit Provider Anesthesiology Pain Medicine
DX: M51.16 Intervertebral disc disorders with radiculopathy, lumbar region (principal); Z45.1 Encounter for adjustment and management of infusion pump
CPT/HCPCS: 95991

== ENCOUNTER → 2021-12-04 12:47 | Day surgery (SDC) | payer OTHER, SELFPAY ==
[2021-12-04 13:01] VITALS: BP 130/73; PULSE 85; RESP 18; TEMP 37.4; O2SAT 95; BMI 39.0
[2021-12-04 13:03] VITALS: BP 113/59; PULSE 86; RESP 18; O2SAT 94
[2021-12-04 13:07] VITALS: BP 107/57; PULSE 77; RESP 18; O2SAT 94
--- NOTE | 2021-12-04 13:12 | HMH.PMPROC ---
- Procedure Date: 12/04/21 Time: 13:12 Anesthesiologist:: SALENA Lauren Complications:: None Pre-procedure Diagnosis:: Degenerative disc disease of lumbar spine with lumbar radiculopathy symptoms Post-procedure Diagnosis:: Same Indications for Procedure:: Patient is a pleasant 46-year-old male who presents today for intrathecal pain pump [refill] [and reprogram]. The patient is being treated for degenerative disc disease of lumbar spine with lumbar radiculopathy symptoms. Currently being managed with morphine 5 mg/mL at a rate of 0.57 mg/day. Patient reports urinary hesitation and some constipation from time to time. He does take Flomax and Linzess. These are helping his bowel and bladder. Patient states that this medication is adequately managing his pain. Patient rates pain a 5 out of 10. Drug screen is appropriate. Kosta [id number] with an active morphine equivalent of 0 has been reviewed and is appropriate. Physical exam General: Alert and oriented x3, no acute distress, pleasant and cooperative, [on room air] Lungs: Respirations even and unlabored, symmetrical chest expansion Eyes: PERRL Musculoskeletal: Flexion and extension of lumbar [spine] somewhat guarded secondary to pain, [antalgic gait noted] Neurological: Speech clear, no gross sensory deficit Procedure Details:: Informed consent was obtained and the risk and benefits of the procedure were explained to the patient. The patient was taken to the procedure room where noninvasive monitoring was placed including noninvasive blood pressure cuff and pulse oximeter. Patient's pump was interrogated. The area over the pump was cleansed with chlorhexidine as a cleansing solution. In sterile fashion the pump was accessed with a 22-gauge needle. Fluoroscopy was used to access the pump approximately 10.7 mls of the pump solution was removed and discarded appropriately. The pump was then refilled with 20 mL's of morphine 5 mg/mL. The needle was withdrawn and a bandage was placed over the puncture site. The infusion rate was reprogrammed and increased to morphine 0.63 mg/day. The patient tolerated well with no complication. Plan and Disposition:: We will see the patient back in the clinic at the next intrathecal refill. Patient has been instructed to contact the clinic with any concerns before the next appointment. Dr. Adams has reviewed this note and agrees with this plan of care. This note was dictated using voice recognition software and make contain errors or omissions.
[2021-12-04 13:25] VITALS: BP 115/74; PULSE 82; RESP 20; O2SAT 95
== END ==
PROVIDERS: PCP Physician Assistant; Visit Provider Student in an Organized Health Care Education/Training Program
DX: M51.16 Intervertebral disc disorders with radiculopathy, lumbar region (principal); Z45.1 Encounter for adjustment and management of infusion pump; F41.9 Anxiety disorder, unspecified; N40.0 Benign prostatic hyperplasia without lower urinary tract symptoms; K21.9 Gastro-esophageal reflux disease without esophagitis; E78.5 Hyperlipidemia, unspecified; I10 Essential (primary) hypertension; J84.9 Interstitial pulmonary disease, unspecified; I49.9 Cardiac arrhythmia, unspecified; Z88.0 Allergy status to penicillin; Z88.1 Allergy status to other antibiotic agents; Z88.8 Allergy status to other drugs, medicaments and biological substances
CPT/HCPCS: 62370; Q9966

== ENCOUNTER 2022-02-06 02:52 | Emergency (ER) | payer BC, SELFPAY ==
[2022-02-06 02:53] VITALS: BP 106/84; PULSE 97; RESP 16; TEMP 37.2; O2SAT 98; BMI 38.0
[2022-02-06 03:01] VITALS: BMI 38.0
[2022-02-06 03:15] LABS: Basophils # 0.2 K/mm3 (0-0.2); Eosinophils # 0.1 K/mm3 (0.0-0.4); Hematocrit 48.9 % (42.0-52.0); Lymphocytes # 1.5 K/mm3 (0.7-4.5); Lymphocytes % 17.1 % (10-50); Mean Corpuscular HGB Conc 32.6 g/dL (31.8-35.4); Mean Corpuscular Volume 85.8 fl (80-94); Mean Platelet Volume 7.6 fl (7.4-10.4); Monocytes # 0.4 K/mm3 (0.1-1.0); Monocytes % 4.3 % (1.7-9.3); Neutrophils # 6.6 K/mm3 (1.8-7.8); Neutrophils % 75.7 % (37.0-80.0); Platelet Count 430 K/mm3 (142-424); Red Cell Distribution Width 13.9 % (11.5-17.5); White Blood Count 8.7 K/mm3 (4.8-10.8)
[2022-02-06 03:23] LABS: Alanine Aminotransferase 75 U/L (12-78); Albumin Level 4.5 g/dl (3.5-5.0); Albumin/Globulin Ratio 1.2 (1.1-1.8); Alkaline Phosphatase 132 U/L (38-126); Anion Gap 14.8 mEq/L (5-15); Aspartate Amino Transferase 63 U/L (17-59); Bilirubin,Total 1.6 mg/dl (0.2-1.3); Blood Urea Nitrogen 10 mg/dl (9-20); Calcium 10.5 mg/dl (8.4-10.2); Carbon Dioxide 31 mmol/L (22.0-30.0); Chloride 95 mmol/L (98-107); Creatinine Clearance Estimated 149 mL/min (50-200); Estimated Glomerular Filt Rate 72 ml/min (>60); GFR (African American) 87 ML/MIN (>60); Globulin 3.7 g/dL (1.3-3.2); Glucose 159 mg/dl (74-100); Potassium 3.8 mmoL/L (3.5-5.1); Sodium 137 mmol/L (136-145); Total Protein,Serum 8.2 g/dl (6.3-8.2)
[2022-02-06 03:28] LABS: C-Reactive Protein 5.2 mg/L (0-4)
[2022-02-06 03:41] LABS: Procalcitonin 0.061 ng/mL (0.0-2.0)
[2022-02-06 03:44] LABS: Erythrocyte Sedimentation Rate 3 mm/hr (0-15)
[2022-02-06 04:06] LABS: Magnesium 1.6 mg/dl (1.6-2.3)
--- NOTE | 2022-02-06 04:30 | PC.NURSE ---
Despite several medications to attempt to relieve pt's pain and spasms, he continues to report severe 10/[address] ordered however pt not tolerating to lay still at this time. He accident pulled IV out of arm while ambulating around the room. Told pt he need to sit/lay still as with his medications he is at risk for falls. Pt's at bedside, who has changed with pt's mother. Pt refuses to stay in bed. He refuses to wear BP cuff of VS monitoring devices. N/V treated per SEP.
--- NOTE | 2022-02-06 04:53 | PC.NURSE ---
PATIENT TO CT
--- NOTE | 2022-02-06 04:53 | HMH.EDGENADL ---
ED Disposition Clinical Impression: Lumbar radiculopathy, Spasmodic movement of extremities Disposition: Home, Self-Care Condition on Discharge: Good Instructions: DI for Acute Pain -- Adult Additional Instructions: see dr hortensia ignacio at 0900 Referrals: Hallie May PA [Primary Care Provider] - - Critical Care Critical Care Time: No Attestation: On 02/06/22, the high probability of a clinically significant, sudden or life threatening deterioration of the following system(s) required my full and direct attention, intervention and personal management. The time I documented below is in addition to time spent performing reported procedures but includes the following listed in this critical care notation. Medical Decision Making - Medical Records Medical records reviewed: Yes: I reviewed the patient's medical records. - Kosta Inquiry Pt receiving controlled substance: No Vital Signs: 02/06/22 02:53 Temperature 98.9 F Temperature Source Oral Pulse Rate [Right] 97 H Respiratory Rate 16 Blood Pressure [Right Arm] 106/84 L Blood Pressure Mean [Right Arm] 91 02 Sat by Pulse Oximetry 98 - Lab Data Lab results reviewed: Yes: I reviewed the patient's lab results. Lab Results 02/06/22 03:00: WBC 8.7, RBC 5.70, Hgb 16.0, Hct 48.9, MCV 85.8, MCH 28.0, MCHC 32.6, RDW 13.9, Plt Count 430 H, MPV 7.6, Neut % (Auto) 75.7, Lymph % (Auto) 17.1, [place] % (Auto) 4.3, Eos % (Auto) 1.0, Baso % (Auto) 2.0, Neut # (Auto) 6.6, Lymph # (Auto) 1.5, [place] # (Auto) 0.4, Eos # (Auto) 0.1, Baso # (Auto) 0.2, ESR 3 02/06/22 03:00: Sodium 137, Potassium 3.8, Chloride 95 L, Carbon Dioxide 31 H, Anion Gap 14.8, BUN 10, Creatinine 1.10, Estimated Creat Clear 149, Estimated GFR 72, Est GFR ( Amer) 87, Glucose 159 H, Calcium 10.5 H, Total Bilirubin 1.6 H, AST 63 H, ALT 75, Alkaline Phosphatase 132 H, C-Reactive Protein 5.2 H, Total Protein 8.2, Albumin 4.5, Globulin 3.7 H, Albumin/Globulin Ratio 1.2, Procalcitonin 0.061 02/06/22 03:00: Magnesium 1.6 02/06/22 04:06: Urine Color Yellow, Urine Appearance Clear, Urine pH 7.5, Ur Specific Kelley 1.015, Urine Protein Trace, Urine Glucose (UA) Negative, Urine Ketones Trace, Urine Blood Negative, Urine Nitrate Negative, Urine Bilirubin 1+ A, Urine Urobilinogen 1.0, Ur Leukocyte Esterase Negative, Urine RBC None, Urine WBC Occasional, Ur Squamous Epith Cells Occasional, Urine Bacteria None 02/06/22 04:06: Urine Opiates Screen Positive H, Urine Methadone Screen Negative, Ur Barbituates Screen Negative, Ur Phencyclidine Scrn Negative, Ur Amphetamines Screen Negative, U Benzodiazepines Scrn Negative, Urine Cocaine Screen Negative, U Marijuana (THC) Screen Negative Result diagrams: 02/06/22 03:00 02/06/22 03:00 Orders (Tests/Meds): ED MEDICATIONS Generic Name Dose Route Start Last Admin Trade Name Freq PRN Reason Stop Dose Admin Sodium Chloride 1,000 mls @ 999 mls/hr 02/06/22 03:15 02/06/22 03:15 Sod Chlor 0.9% 1000ml Bag IV 02/06/22 04:15 999 mls/hr .Q1H1M RAFIA Administration Sodium Chloride 10 ml 02/06/22 03:56 Sodium Chloride 0.9% 10ml Vial IV 03/08/22 03:55 NEEDED PRN to Dilute Lorazepam inj Discontinued Medications Generic Name Dose Route Start Last Admin Trade Name Freq PRN Reason Stop Dose Admin Ketorolac Tromethamine 30 mg 02/06/22 03:23 02/06/22 03:25 Ketorolac 30mg/Ml Vial IV 02/06/22 03:24 30 mg ONCE ONE Administration Lorazepam 1 mg 02/06/22 03:56 02/06/22 03:57 Lorazepam 2mg/Ml Vial IV 02/06/22 03:57 1 mg ONCE ONE Administration Methylprednisolone Sodium Succinate 125 mg 02/06/22 05:25 02/06/22 05:26 Methylprednisolone Sod Succ 125mg Vial IV 02/06/22 05:26 125 mg ONCE ONE Administration Morphine Sulfate 4 mg 02/06/22 04:46 02/06/22 04:46 Morphine 4mg/Ml Syringe IV 02/06/22 04:47 4 mg ONCE ONE Administration Ondansetron HCl 4 mg 02/06/22 03:50 02/06/22 03:51 Ondansetron 4mg/2ml Vial IV 02/06/22
--- NOTE | 2022-02-06 05:00 | PC.NURSE ---
orthotics technician unable to complete ct due to pt unable to lay still will try later
--- NOTE | 2022-02-06 05:10 | PC.NURSE ---
Patient refuses to allow vitals to be taken
[2022-02-06 05:20] LABS: Microscopic, Urine URINE MICROSCOPIC (MICROSCOPIC)
[2022-02-06 05:23] LABS: Appearance,Urine CLEAR (Clear); Blood, Urine Negative (Negative); Color,Urine YELLOW (Yellow); Glucose,Urine (UA) Negative (Negative); Ketones,Urine TRACE (Negative); Leukocyte Esterase,Urine Negative (Negative); Nitrate,Urine Negative (Negative); PH,Urine 7.5 (5.0-8.5); Protein,Urine TRACE (Negative); Specific Gravity, Urine 1.015 (1.005-1.030)
[2022-02-06 05:35] LABS: Amphetamine/Metha Screen,Urine Negative ng/ml (<1000); Benzodiazepines Screen,Urine Negative ng/ml (<200); Bilirubin,Urine 1+ (Negative)
[2022-02-06 05:36] LABS: Barbiturates Screen,Urine Negative ng/ml (<200)
[2022-02-06 05:37] LABS: Cannabinoid Screen,Urine Negative ng/ml (<50); Cocaine Screen,Urine Negative ng/ml (<300)
[2022-02-06 05:38] LABS: Methadone Screen,Urine Negative ng/ml (<300)
[2022-02-06 05:39] LABS: Opiate Screen,Urine Positive ng/ml (<300); Phencyclidine Screen,Urine Negative ng/ml (<25)
[2022-02-06 05:40] LABS: Squamous Epithelial Cell,Urine Occasional #/hpf (0-5); WBC,Urine Occasional #/hpf (0-3)
--- NOTE | 2022-02-06 05:51 | PC.NURSE ---
mother at bedside
--- NOTE | 2022-02-06 06:00 | PC.NURSE ---
pt assisted to BR @ this time
--- NOTE | 2022-02-06 06:22 | PC.NURSE ---
Dr. Garcia s/w Dr. Adams
[2022-02-06 06:43] VITALS: BP 105/80; PULSE 80; RESP 18; TEMP 36.7; O2SAT 98
== END 2022-02-06 06:46 | disposition home or self-care (01) ==
PROVIDERS: Emergency Provider Emergency Medicine; PCP Physician Assistant
DX: M54.16 Radiculopathy, lumbar region (principal); M62.838 Other muscle spasm; R00.2 Palpitations; I10 Essential (primary) hypertension; I49.9 Cardiac arrhythmia, unspecified; K21.9 Gastro-esophageal reflux disease without esophagitis; E78.5 Hyperlipidemia, unspecified; N40.0 Benign prostatic hyperplasia without lower urinary tract symptoms; G89.29 Other chronic pain; J98.4 Other disorders of lung; F41.9 Anxiety disorder, unspecified; Z79.1 Long term (current) use of non-steroidal anti-inflammatories (NSAID); Z79.899 Other long term (current) drug therapy; Z88.0 Allergy status to penicillin; Z88.1 Allergy status to other antibiotic agents; Z88.3 Allergy status to other anti-infective agents; Z88.8 Allergy status to other drugs, medicaments and biological substances; Z97.8 Presence of other specified devices
CPT/HCPCS: 80053; 80305; 81001; 83735; 84145; 85025; 85651; 86140; 96372; 96374; 96375; 99285

== ENCOUNTER → 2022-02-06 08:50 | Outpatient (POV) | payer BC, SELFPAY ==
[2022-02-06 08:59] VITALS: BP 182/80; PULSE 118; RESP 20; TEMP 37.1; O2SAT 98; BMI 38.0
--- NOTE | 2022-02-06 10:57 | PC.NURSE ---
0923-#20ga IV started to right AC x1 attempt. Fluid bolus initiated per order. POC reviewed, pt verbalized understanding 0930-P. Duff at bedside discussing POC. 0945-IVF infusing without difficulty. Pt assisted out of chair to bathroom. gait steady. 0958-PO baclofen given per order. P. Duff at bedside. 2nd liter of IVF started per order. spouse at bedside 1008-IVF infusing without difficulty. site wnl. pt reports some improvement in symptoms. POC reviewed. understanding verballized 1039-D/C IVF 1900ml infused. pt out of chair to the bathroom. 1043-P.Duff at bedside 1046-IV discontinued per order. POC reviewed. understanding verbalized. 1050-pt transported to PCP office for f/u there.
--- NOTE | 2022-02-06 11:22 | HMH.PAINSOAP ---
[facility] Pain Management SOAP Note Subjective:: This patient is a pleasant 46-year-old male that comes to our clinic today for a follow-up and evaluation. Patient was in the emergency room last night with cramping in his legs and some cramping across his shoulders. Patient tells me he left work yesterday afternoon after having 6 episodes of diarrhea. He states his was having cramping in his abdomen. Shortly after arriving at home his legs began cramping. He describes it as muscle spasms. He states this is happened to him in the past 1 time and it was determined he was dehydrated. Patient admits to me today he rarely ever drinks water. We are currently managing him with intrathecal pain pump of morphine sulfate 5 mg/mL at 0.63 mg/day. Patient has had the intrathecal pain pump for the last 24 months. He has been doing quite well. Is been controlling this pain. However this incident did prompt him to go to the emergency room. His lab work and urine was essentially normal. We will give him a 0.1 mg bolus through his intrathecal pain pump. We will start an IV and give him 2 L of lactated Ringer's. We will send a prescription order in for baclofen 10 mg 1 p.o. 3 times daily. Objective:: Patient is awake alert [place] x3. In no acute distress. Flexion-extension lumbar spine somewhat guarded secondary to pain. Deep tendon reflexes upper and lower extremities normal. Motor strength upper and lower extremities normal. There is no gross sensory deficit. Gait is normal. Patient complained of muscle spasms in his bilateral legs. Some mild lumbar back pain. Assessment:: Degenerative disc disease lumbar spine multilevels. Lumbar radiculopathy symptoms. Dehydration. Bilateral leg spasms. Muscle cramping bilateral legs. Plan:: We gave the patient a 0.1 mg bolus and his catheter of intrathecal medication. Patient received an IV and 2 L of fluid lactated Ringer's was infused. We gave him his first dose of oral baclofen 10 mg. His prescription will be for 10 mg p.o. 3 times daily. We called his primary care Dr. Laureano. He will see him for consultation today. Patient will return to our clinic for follow-up next Saturday. After the above treatment was complete. Patient seems slightly better. However, still complaining of cramping in the legs. [facility] History Medical History: Reports:: Anxiety, Arrhythmia, BPH, Gastroesophageal Reflux Disease(GERD), Hyperlipidemia, Hypertension, Lung Disease, Palpitations Denies:: Cancer, Diabetes Mellitus Type 1, Diabetes Mellitus Type 2, Internal Pacemaker, MRSA, Seizures *Have you ever received a pneumonia vaccine?: No *Have you received a flu vaccine this season?: No Other Medical History: Reports: Arthritis, Other. Denies: Blood Transfusion Reaction Laterality Cases: Bilateral: Tonsillectomy Other Surgeries: Yes: No Previous Surgery, Other (microdiscectomy L5-S1 2003). No: Pacemaker Amputation: No Fractures: Yes (L ankle) - *Social History Smoking Status: Never smoker Alcohol Intake: never Substance Use Type: denies use *Occupational Status:: other Housing: house Household Members: spouse *Travel in the last 8 weeks: None - Psychiatric History Pschychiatric History:: Reports:: Anxiety Family Hx:: Unable to obtain
== END ==
PROVIDERS: Visit Provider Nurse Anesthetist, Certified Registered
DX: M51.16 Intervertebral disc disorders with radiculopathy, lumbar region (principal); R25.2 Cramp and spasm; M62.838 Other muscle spasm
CPT/HCPCS: 62368; 99212; G0463

== ENCOUNTER 2022-02-08 14:27 | Emergency (ER) | payer BC, SELFPAY ==
[2022-02-08] VITALS (7 sets, daily range): BP systolic 131–155; BP diastolic 80–109; PULSE 94–122; RESP 17–18; TEMP 37; O2SAT 96–100; BMI 38.0
--- NOTE | 2022-02-08 14:56 | CT_ITS ---
FINAL REPORT TECHNIQUE: Axial images were performed through the lumbar spine by computed tomography. Sagittal reconstruction images were also performed. This study was performed with techniques to keep radiation doses as low as reasonably achievable, (ALARA). Individualized dose reduction techniques using automated exposure control or adjustment of mA and/or kV according to the patient's size were employed. CLINICAL HISTORY: chronic pain FINDINGS: Sagittal reconstruction images demonstrate no subluxation. No fracture is identified. There is moderate disc space narrowing at L3-L4, L4-L5, and L5-S1. There is vacuum disc phenomenon at L5-S1. There are prominent posterior osteophytes at L5-S1. A stimulator lead is seen entering posteriorly at L4-L5 and extends superiorly. L1-L2: Right paracentral disc protrusion with mild to moderate right spinal canal compromise. L2-L3: No significant canal stenosis or neural foraminal narrowing. L3-L4: Mild diffuse disc bulge with bilateral facet hypertrophy. Mild bilateral neural foraminal narrowing. L4-L5: Moderate diffuse disc bulge with bilateral facet hypertrophy. Stimulator lead enters posteriorly on the left. Moderate spinal canal stenosis. Findings are best seen on image 76 of series 4. L5-S1: Large disc bulge with prominent posterior osteophytes. Moderate spinal canal stenosis with moderate to high-grade bilateral neural foraminal narrowing. IMPRESSION: No acute fracture. Spinal stimulator as above. Multilevel degenerative disc disease with neural foraminal narrowing and central canal stenosis greatest at L4-5 and L5-S1. Reviewed, Interpreted and Dictated by Maciej Eric MD Transcribed by Tico Sofia Authenticated and [facility]
--- NOTE | 2022-02-08 14:56 | CT_ITS ---
FINAL REPORT TECHNIQUE: Axial CT images of the thoracic spine were obtained without contrast. Sagittal and coronal reformatted images were also obtained. This study was performed with techniques to keep radiation doses as low as reasonably achievable (ALARA). Individualized dose reduction techniques using automated exposure control or adjustment of mA and/or kV according to the patient's size were employed. CLINICAL HISTORY: chronic pain FINDINGS: There is no evidence of fracture. The vertebral alignment is normal.There is mild anterior osteophyte formation throughout the mid and lower thoracic spine. There is no evidence of significant canal stenosis. A stimulator lead is seen in the thoracic spinal canal slightly eccentric to the left. No paraspinous soft tissue abnormality is identified. There are calcified granulomas noted in both lungs. There is thickening of the mucosa of the mid and distal esophagus that may represent mild esophagitis. IMPRESSION: No fracture or acute bony abnormality. No significant central canal stenosis. Reviewed, Interpreted and Dictated by Maciej Eric MD Transcribed by Tico Sofia Authenticated and [facility]
--- NOTE | 2022-02-08 14:57 | PC.NURSE ---
pt sitting in a wheelchair per request for comfort
--- NOTE | 2022-02-08 14:58 | PC.NURSE ---
Addendum entered by Tez Jimenes 02/08/22 15:00: pt is aao 3 and is stbile talking to the er doctor Original Note: pt was sitting in wheelchair as the only way of comfort. waiting on ct to get to him before hooking the bp cuff up on him,
--- NOTE | 2022-02-08 15:04 | PC.NURSE ---
ct at bedside
--- NOTE | 2022-02-08 15:04 | HMH.EDBACK ---
ED Disposition Clinical Impression: Acute exacerbation of chronic low back pain Low back pain Qualifiers: Chronicity: chronic Back pain laterality: midline Sciatica presence: without sciatica Qualified Code(s): M54.50 - Low back pain, unspecified; G89.29 - Other chronic pain Disposition: Home, Self-Care Condition on Discharge: Fair Instructions: DI for Low Back Pain Prescriptions: Oxycodone HCl/Acetaminophen [Oxycodone-Acetaminophen 10-325] 1 each PO Q6 #20 tablet Transmission Status: [facility] Referrals: Hallie May PA [Primary Care Provider] - Time of Disposition: 17:30 - Critical Care Critical Care Time: No Attestation: On 02/08/22, the high probability of a clinically significant, sudden or life threatening deterioration of the following system(s) required my full and direct attention, intervention and personal management. The time I documented below is in addition to time spent performing reported procedures but includes the following listed in this critical care notation. Medical Decision Making - Medical Records Medical records reviewed: Yes: I reviewed the patient's medical records. - Kosta Inquiry Pt receiving controlled substance: Yes Kosta was queried for this patient: Yes Risks and benefits of using a controlled substance: were discussed with pt by me Vital Signs: 02/08/22 14:51 02/08/22 15:01 02/08/22 15:32 Temperature 98.6 F Temperature Source Oral Pulse Rate 122 H 117 H Pulse Rate [Left] 117 H Respiratory Rate 18 Blood Pressure 155/108 H 144/100 H Blood Pressure [Right Arm] 131/109 H Blood Pressure Mean 116 108 Blood Pressure Mean [Right Arm] 116 02 Sat by Pulse Oximetry 98 99 99 02/08/22 16:00 02/08/22 16:30 Temperature Temperature Source Pulse Rate 99 H 107 H Pulse Rate [Left] Respiratory Rate Blood Pressure 138/95 H 132/95 H Blood Pressure [Right Arm] Blood Pressure Mean 107 98 Blood Pressure Mean [Right Arm] 02 Sat by Pulse Oximetry 100 97 - Lab Data Lab Results 02/08/22 15:01: SARS-CoV-2 (PCR) Not detected, Influenza A Untype (PCR) Not detected, Influenza Type B (PCR) Not detected 02/08/22 15:25: WBC 10.7, RBC 6.28 H, Hgb 17.5, Hct 53.1 H, MCV 84.5, MCH 27.9, MCHC 33.0, RDW 13.9, Plt Count 472 H, MPV 7.5, Neut % (Auto) 58.7, Lymph % (Auto) 28.3, [place] % (Auto) 8.7, Eos % (Auto) 1.6, Baso % (Auto) 2.8 H, Neut # (Auto) 6.3, Lymph # (Auto) 3.0, [place] # (Auto) 0.9, Eos # (Auto) 0.2, Baso # (Auto) 0.3 H 02/08/22 15:25: Sodium 141, Potassium 3.3 L, Chloride 100, Carbon Dioxide 29, Anion Gap 15.3 H, BUN 10, Creatinine 1.20, Estimated Creat Clear 137, Estimated GFR 65, Est GFR ( Amer) 79, Glucose 132 H, Calcium 9.6, Total Bilirubin 1.8 H, AST 103 H D, ALT 54 D, Alkaline Phosphatase 144 H, C-Reactive Protein 1.6 D, Total Protein 8.7 H, Albumin 4.9, Globulin 3.8 H, Albumin/Globulin Ratio 1.3 02/08/22 15:25: ESR 1 Result diagrams: 02/08/22 15:25 02/08/22 15:25 Orders (Tests/Meds): ED MEDICATIONS Discontinued Medications Generic Name Dose Route Start Last Admin Trade Name Carter PRN Reason Stop Dose Admin Hydromorphone HCl 2 mg 02/08/22 15:03 02/08/22 15:31 Hydromorphone 2mg/Ml Syringe IV 02/08/22 15:04 2 mg ONCE ONE Administration Hydromorphone HCl 1 mg 02/08/22 16:03 02/08/22 16:05 Hydromorphone 2mg/Ml Syringe IV 02/08/22 16:04 1 mg ONCE ONE Administration Sodium Chloride 1,000 mls @ 999 mls/hr 02/08/22 15:15 02/08/22 15:31 Sod Chlor 0.9% 1000ml Bag IV 02/08/22 16:15 999 mls/hr .Q1H1M RAFIA Administration Ondansetron HCl 4 mg 02/08/22 15:02 02/08/22 15:30 Ondansetron 4mg/2ml Vial IV 02/08/22 15:03 4 mg ONCE ONE Administration - Reevaluation(s) Time: 17:28 (Discussed with Dr. Kelsey, partner of Dr. Dominguez, reviewed case, and no indictaion for emergent intervention, discitis, osteomyelitis, SEA thought unlikely given overall clinical picture. They can follow up
--- NOTE | 2022-02-08 15:18 | PC.NURSE ---
pt return from radiology via wheelchair at this time
[2022-02-08 15:38] LABS: Basophils # 0.3 K/mm3 (0-0.2); Basophils % 2.8 % (0.1-2.0); Eosinophils # 0.2 K/mm3 (0.0-0.4); Eosinophils % 1.6 % (0.1-12.0); Hematocrit 53.1 % (42.0-52.0); Hemoglobin 17.5 g/dL (14.1-18.0); Lymphocytes % 28.3 % (10-50); Mean Corpuscular Hemoglobin 27.9 pg (27.0-31.2); Mean Corpuscular Volume 84.5 fl (80-94); Mean Platelet Volume 7.5 fl (7.4-10.4); Monocytes # 0.9 K/mm3 (0.1-1.0); Monocytes % 8.7 % (1.7-9.3); Neutrophils # 6.3 K/mm3 (1.8-7.8); Neutrophils % 58.7 % (37.0-80.0); Platelet Count 472 K/mm3 (142-424); Red Blood Count 6.28 M/mm3 (4.60-6.20); Red Cell Distribution Width 13.9 % (11.5-17.5); White Blood Count 10.7 K/mm3 (4.8-10.8)
[2022-02-08 15:48] LABS: Chloride 100 mmol/L (98-107); Sodium 141 mmol/L (136-145)
[2022-02-08 15:49] LABS: Potassium 3.3 mmoL/L (3.5-5.1)
[2022-02-08 15:51] LABS: Alanine Aminotransferase 54 U/L (12-78); Albumin Level 4.9 g/dl (3.5-5.0); Albumin/Globulin Ratio 1.3 (1.1-1.8); Alkaline Phosphatase 144 U/L (38-126); Anion Gap 15.3 mEq/L (5-15); Aspartate Amino Transferase 103 U/L (17-59); Bilirubin,Total 1.8 mg/dl (0.2-1.3); Blood Urea Nitrogen 10 mg/dl (9-20); Carbon Dioxide 29 mmol/L (22.0-30.0); Creatinine Clearance Estimated 137 mL/min (50-200); Estimated Glomerular Filt Rate 65 ml/min (>60); GFR (African American) 79 ML/MIN (>60); Globulin 3.8 g/dL (1.3-3.2); Total Protein,Serum 8.7 g/dl (6.3-8.2)
[2022-02-08 15:52] LABS: Calcium 9.6 mg/dl (8.4-10.2); Glucose 132 mg/dl (74-100)
[2022-02-08 15:57] LABS: C-Reactive Protein 1.6 mg/L (0-4)
[2022-02-08 16:07] LABS: Erythrocyte Sedimentation Rate 1 mm/hr (0-15)
--- NOTE | 2022-02-08 16:09 | PC.NURSE ---
covid swab sent to lab at this time, pt sitting up in wheelchair, pt offered warm blanket and cold rag for comfort, pt declined both. Pt no needs at this time. Family in room with pt.
[2022-02-08 16:12] LABS: Coronavirus 19, PCR Not Detected (NotDetected); Influenza A, PCR Not Detected (NotDetected); Influenza B, PCR Not Detected (NotDetected)
--- NOTE | 2022-02-08 17:07 | PC.NURSE ---
PT VOIDED 75CC URINE. BLADDER SCANNER WITH 31ML
--- NOTE | 2022-02-08 17:16 | PC.NURSE ---
contacted dr liu at [facility] per er doctor...... Dr wilson crowd controller advised they would page him and have him call us back
--- NOTE | 2022-02-08 17:21 | PC.NURSE ---
dr wilson from [facility], [place], operated by [facility] called back and spoke with er doctor
== END 2022-02-08 18:05 | disposition home or self-care (01) ==
PROVIDERS: Emergency Provider Emergency Medicine; PCP Physician Assistant
DX: M51.37 Other intervertebral disc degeneration, lumbosacral region (principal); G89.29 Other chronic pain; M54.50 Low back pain, unspecified; R33.9 Retention of urine, unspecified
CPT/HCPCS: 72128; 72131; 80053; 85025; 85651; 86140; 96361; 96374; 96375; 96376; 99284; C9803; J2405; U0003; U0005

== ENCOUNTER 2022-02-13 12:15 | Day surgery (SDC) | payer BC, SELFPAY ==
[2022-02-13 12:31] VITALS: BP 117/75; BP 133/89; PULSE 104; PULSE 94; RESP 20; O2SAT 97; O2SAT 98; BMI 38.0
--- NOTE | 2022-02-13 12:55 | HMH.PMPROC ---
- Procedure Date: 02/13/22 Time: 12:55 Anesthesiologist:: Brooks Adams MD Complications:: None Pre-procedure Diagnosis:: Degenerative disease of lumbar spine with lumbar radiculopathy symptoms with intrathecal morphine pain pump in place Post-procedure Diagnosis:: Same Indications for Procedure:: This patient is a pleasant 46-year-old white male who currently has an intrathecal morphine pain pump. He has been having some increasing pain in the legs with cramping of both legs. This has been going on over the last couple weeks. He was started on oral baclofen. His pump was increased. He has seen Dr. Prasad. He does have an osteophyte which may have aggravated his symptoms. However last week he again went to the emergency room and was given Dilaudid 2 doses which seemed to has resolved his pain. Currently he is not having much pain symptoms and his leg symptoms have completely resolved. He is currently on intrathecal morphine at 0.6 mg/day. We will refill him and perform intrathecal catheter dye study to confirm patency of his intrathecal catheter and proper placement. Procedure Details:: Informed consent was obtained and the risks and benefits of the procedure was explained to the patient. The patient was taken to the procedure room. The pump was interrogated. The area over the pump was prepped using ChloraPrep. The pump was accessed with a 22-gauge needle. Approximately 10 mL's of the intrathecal solution was withdrawn and discarded. The pump was then refilled with 20 mL's of intrathecal morphine 5 mg/mL. We then accessed the catheter access port and we were able to freely withdraw medication and CSF through the catheter. The catheter was confirmed to be patent and in proper position at the T12 vertebral body. The pump was interrogated and the infusion was increased to 0.8 mg/day of intrathecal morphine. The patient tolerated the procedure well with no complication. Plan and Disposition:: We will follow-up with this patient in 2 weeks. Will reevaluate his symptoms at that time.
[2022-02-13 13:07] VITALS: BP 131/78; PULSE 96; RESP 20; O2SAT 97
== END 2022-02-13 13:07 | disposition home or self-care (01) ==
LOC: SC.PAINP 12:16
PROVIDERS: PCP Physician Assistant; Visit Provider Anesthesiology
DX: M51.16 Intervertebral disc disorders with radiculopathy, lumbar region (principal); I10 Essential (primary) hypertension; E78.5 Hyperlipidemia, unspecified; K21.9 Gastro-esophageal reflux disease without esophagitis
CPT/HCPCS: 61070; 62370; C1772

== ENCOUNTER → 2022-03-05 10:25 | Outpatient (POV) | payer BC, SELFPAY ==
[2022-03-05 10:33] VITALS: BP 140/91; PULSE 60; RESP 20; O2SAT 97; BMI 39.3
--- NOTE | 2022-03-05 11:04 | HMH.PMPROC ---
- Procedure Date: 03/05/22 Time: 11:04 Anesthesiologist:: Adrienne Rand APRN Complications:: None Pre-procedure Diagnosis:: Degenerative disc disease of the lumbar spine with lumbar radiculopathy symptoms Post-procedure Diagnosis:: Same Indications for Procedure:: Patient is a pleasant 46-year-old male who presents today for follow-up and intrathecal pain pump adjustment. Patient is current being treated for degenerative disc disease of lumbar spine with lumbar decline for the symptoms. Patient is currently being managed with morphine 5 mg/mL at a rate of 0.8 mg/day, PTC boluses of morphine 0.3 mg up to 4 times a day. Patient has been stable with this medication. Today, patient states that he has been having worsening pain in the last 4 weeks. Denies any recent falls or traumas. He has been to the emergency department a few times in the last month because of this increasing low back pain. More recently, he saw his PCP who started him on oral steroids for a week. He finished his last dose yesterday. He says that the steroid is somewhat helping some of his discomfort. He still continues to have pain around his low back and he cannot tolerate any prolonged activities such as sitting, standing, and walking. He has been having issues with sleeping as well because of the pain. Rates his pain as 8 out of 10. We will adjust his intrathecal pain pump today. Physical Exam: General: Alert and oriented x3, no acute distress, pleasant and cooperative Lungs: Respirations even and unlabored, symmetrical chest expansion Eyes: PERRL Musculoskeletal: Flexion and extension of lumbar [spine] somewhat guarded secondary to pain, [antalgic gait noted] Neurological: Speech clear, no gross sensory deficit Procedure Details:: Informed consent was obtained and the risk and benefits of the procedure were explained to the patient. Patient was taken to the procedure room where noninvasive monitoring was placed including noninvasive blood pressure cuff and pulse oximeter. Patient's pump was interrogated and was reprogrammed to morphine 0.96 mg/day. The patient tolerated the procedure well with no complications. Plan and Disposition:: We increased the patient's intrathecal pain pump to morphine 0.96 mg/day. I will also start this patient on diclofenac 75 mg twice a day and tizanidine 4 mg at bedtime. We will follow this patient in 2 weeks. If the patient gets minimal relief from this adjustment in medications, will consider repeating a lumbar epidural steroid injection or trigger point injections around his bilateral lumbar paraspinous muscles. Patient has been instructed to contact the clinic with any concerns before the next appointment. Dr. Adams has reviewed this note and agrees with this plan of care. This note was dictated using voice recognition software and make contain errors or omissions.
== END ==
PROVIDERS: PCP Family Medicine; Visit Provider Nurse Practitioner Family
DX: M51.16 Intervertebral disc disorders with radiculopathy, lumbar region (principal)
CPT/HCPCS: 62368

== ENCOUNTER → 2022-03-19 11:10 | Outpatient (POV) | payer BC, SELFPAY ==
[2022-03-19 11:20] VITALS: BP 147/92; PULSE 104; RESP 20; TEMP 36.4; O2SAT 95; BMI 39.3
--- NOTE | 2022-03-19 12:11 | HMH.PAINSOAP ---
[facility] Pain Management SOAP Note Subjective:: Patient is a pleasant 46-year-old that presents today for follow-up. We are currently treating the patient for degenerative disc disease of lumbar spine with lumbar radiculopathy symptoms. Patient today rates his pain a 5 out of 10. He describes his pain all in his low back region and describes it as a sharp constant stabbing sensation that is worse with increased activity or sitting for long periods of time. Patient denies any new trauma or injury to the site. He states he has had this pain for the last couple months following a GI bug. He states he has had bilateral leg pain with his low back pain however at today's visit his legs are doing okay. He states his pain causes him to have significant sleeping problems and that he has to get up multiple times throughout the night. At our last visit the patient did have an adjustment of his intrathecal pain pump. 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 Patient has tried cghe-pqq-eagveig medications such as Tylenol and ibuprofen with minimal relief. He is also been prescribed Flexeril and tizanidine in his history and states that did help some. He states the baclofen he was given helps however it is not continuous but states it occasionally works 1 night and then not the next. He states he is out of this medication and would like a refill if possible. He has also used fjlo-bem-qvwxulc lidocaine patches that he states did provide some relief. We are currently managing his pain with morphine 0.96 mg/day. Patient has a history of back surgery at L4-L5 in 2018 and L5-S1 in 2004. His Kosta is [id number]. It has been reviewed. Review of Systems: General: No recent weight changes, no fever, no sleep disturbances Respiratory: No cough, no shortness of air, no recurring pulmonary infections Cardiovascular/peripheral vascular: No chest pain, no palpitations, no edema, no shortness of breath Gastrointestinal: No new onset incontinence, normal bowel movements reported Genitourinary: No new onset incontinence Musculoskeletal: Low back pain Psychiatric: [Normal mood/affect] Neurological: [Denies weakness in extremities], [denies balance issues] Objective:: Physical Exam: General: Alert and oriented x3, no acute distress, pleasant and cooperative Lungs: Respirations even and unlabored, symmetrical chest expansion Eyes: PERRL Musculoskeletal: Flexion and extension of lumbar [spine] somewhat guarded secondary to pain, [antalgic gait noted] Neurological: Speech clear, no gross sensory deficit Assessment:: Degenerative disc disease of lumbar spine multilevels with lumbar radiculopathy symptoms, bilateral leg spasms Plan:: Patient still continues to have significant pain in his low back that is worse with increased activity or sitting for extended periods of time. I have discussed with the patient regarding a epidural injection. Risk and benefits were discussed with the patient. He would like to proceed forward with this injection. Patient is not currently on any blood thinners. I will order the patient prescription strength lidocaine patches and provide a 30-day supply of these. I will also refill his prescription of baclofen and give a 1 month supply. The patient will be scheduled for a lumbar epidural steroid injection at L4-L5. Patient has been instructed to contact the clinic with any concerns before the next appointment. Dr. Adams has reviewed this note and agrees with this plan of care. This note was dictated using voice recognition software and make contain errors or omissions. [facility] History I have reviewed the patient's past medical history: Yes Medical History: Reports:: Anxiety, Arrhythmia, BPH, Gastroesophageal Reflux Disease(GERD), Hyperlipidemia, Hypertension, Lung Disease, Palpitations Denies:: Cancer, Diabetes Mellitus Ty
== END ==
PROVIDERS: PCP Family Medicine; Visit Provider Nurse Practitioner Family
DX: M51.16 Intervertebral disc disorders with radiculopathy, lumbar region (principal); R25.2 Cramp and spasm
CPT/HCPCS: 99212; G0463

== ENCOUNTER 2022-04-06 12:50 | Day surgery (SDC) | payer BC, SELFPAY ==
[2022-04-06 13:05] VITALS: BP 123/70; PULSE 70; RESP 18; TEMP 36.2; O2SAT 97; BMI 39.3
[2022-04-06 14:11] VITALS: BP 121/81; PULSE 64; RESP 18; O2SAT 93
[2022-04-06 14:12] VITALS: BP 121/81; PULSE 64; RESP 18; O2SAT 93
[2022-04-06 14:20] VITALS: BP 112/60; PULSE 65; RESP 20; O2SAT 95
--- NOTE | 2022-04-06 14:56 | EXP.PAIN.PRO ---
Procedure Date: 04/06/22 Time: 14:57 Anesthesiologist:: Brooks Adams MD Complications:: None Pre-procedure Diagnosis:: Degenerative disc disease of lumbar spine with lumbar radiculopathy symptoms and postlaminectomy syndrome lumbar spine Post-procedure Diagnosis:: Same Indications for Procedure:: Patient is a pleasant 46-year-old white male who we are treating for low back pain with lumbar radiculopathy symptoms. He also has postlaminectomy syndrome lumbar spine. He has increasing pain in his back and down both legs. We will do lumbar epidural steroid injection today to see if this helps with his pain symptoms. Procedure Details:: Informed consent was obtained and the risk and benefits of the procedure was explained to the patient. The patient was taken to the procedure room. The patient was placed prone on the procedure table. The patient was prepped and draped in sterile fashion. C-arm fluoroscopy was used to view the lumbar spine. Skin and subcutaneous tissues were anesthetized using lidocaine. I placed an 18-gauge epidural needle and advanced into the L4-L5 interspace using fluoroscopic guidance and sewy-[id number] to air. After confirmation of needle placement in the epidural space with dye I injected 2 mL of lidocaine 1.5% with Depo-Medrol 80 mg. Patient tolerated the procedure well with no complications. Plan and Disposition:: We will follow-up with him in 2 weeks. Will reevaluate symptoms at that time.
== END 2022-04-06 14:25 | disposition home or self-care (01) ==
LOC: SC.PAINP 12:51
PROVIDERS: PCP Family Medicine; Visit Provider Anesthesiology
DX: M51.16 Intervertebral disc disorders with radiculopathy, lumbar region (principal); M96.1 Postlaminectomy syndrome, not elsewhere classified
CPT/HCPCS: 62323; J1040; Q9966

== ENCOUNTER 2022-05-01 11:16 | Day surgery (SDC) | payer BC, SELFPAY ==
[2022-05-01 11:29] VITALS: BP 122/63; PULSE 71; RESP 20; TEMP 36.7; O2SAT 98; BMI 38.2
[2022-05-01 11:53] VITALS: BP 152/89; PULSE 70; RESP 18; O2SAT 97
[2022-05-01 11:55] VITALS: BP 152/89; PULSE 70; RESP 18; O2SAT 98
--- NOTE | 2022-05-01 12:00 | EXP.PAIN.PRO ---
Procedure Date: 05/01/22 Time: 12:00 Anesthesiologist:: Yunier Frost CRNA Complications:: None Pre-procedure Diagnosis:: Degenerative disc disease of lumbar spine with lumbar radiculopathy symptoms, postlaminectomy syndrome lumbar spine Post-procedure Diagnosis:: Same Indications for Procedure:: Patient is a pleasant 46-year-old male who presents today for intrathecal pain pump refill. We are currently treating the patient for degenerative disc disease of lumbar spine with lumbar radiculopathy symptoms, postlaminectomy syndrome lumbar spine. Today the patient rates his pain a 2 out of 10. He states his pain is primarily in his low back. Patient states that he has had significant improvement of his symptoms following the lumbar epidural injection he had on 04/06/2022. Patient is currently managed with morphine 5 mg/mL with a daily dose of 0.96 mg/day. Patient denies any side effects from this medication. He states this medication does adequately help manage his pain. Physical exam General: Alert and oriented x3, pleasant and cooperative on room air, no acute distress noted Lungs: Respiration even and unlabored, symmetrical chest expansion Eyes: PERRL Musculoskeletal: Flexion and extension of lumbar spine somewhat guarded secondary to pain, antalgic gait noted Neurological: Speech clear, no gross sensory deficit Procedure Details:: Informed consent was obtained and the risk and benefits of the procedure were explained to the patient. The patient was taken to the procedure room where noninvasive blood pressure cuff and pulse oximeter were placed on the patient. The patient's pump was then interrogated. The area over the pump was cleansed with chlorhexidine as a cleansing solution. Using a 25-gauge needle the pump was accessed. Through the interrogation 4.8 mL of his pump solution expected. Approximately 5 mL of pump solution was removed and discarded appropriately. The needle was withdrawn and a bandage was placed over the puncture site. Patient's pump was reinterrogated and continued at morphine 5 mg/mL with a daily dose of 0.96 mg/day. Patient tolerated the procedure well with no complications. Plan and Disposition:: We will see the patient back at their next intrathecal pain pump refill date. Patient has been instructed to contact the clinic with any questions or concerns before the next appointment date.? Dr. Adams has read this note and agrees with this plan of care.? This note was dictated using voice recognition software and may contain errors or omissions.
[2022-05-01 12:10] VITALS: BP 114/75; PULSE 74; RESP 20
== END 2022-05-01 12:10 | disposition home or self-care (01) ==
PROVIDERS: PCP Family Medicine; Visit Provider Nurse Anesthetist, Certified Registered
DX: M51.16 Intervertebral disc disorders with radiculopathy, lumbar region (principal); M96.1 Postlaminectomy syndrome, not elsewhere classified
CPT/HCPCS: 95991

== ENCOUNTER 2022-06-26 11:48 | Day surgery (SDC) | payer BC, SELFPAY ==
[2022-06-26 11:54] VITALS: BP 149/76; PULSE 87; RESP 18; TEMP 36.3; O2SAT 93; BMI 39.3
[2022-06-26 11:58] VITALS: BP 139/91; PULSE 81; RESP 18; O2SAT 97
[2022-06-26 12:10] VITALS: BP 108/65; PULSE 78; RESP 20
--- NOTE | 2022-06-26 12:16 | EXP.PAIN.PRO ---
Procedure Date: 06/26/22 Time: 11:40 Anesthesiologist:: Yunier Frost CRNA Complications:: None Pre-procedure Diagnosis:: Degenerative disc disease lumbar spine multilevels. Lumbar radiculopathy. Lumbar postlaminectomy syndrome. Post-procedure Diagnosis:: Same. Indications for Procedure:: This patient is a pleasant 46-year-old male that comes our clinic today for intrathecal pain pump refill. We are currently treating the patient with morphine sulfate 5 mg/mL at 0.96 mg/day. Patient does not report any side effects or complications. However, patient is reporting some increased pain in the low back recently. He is requesting an increase in the pump rate. I think this is reasonable. Procedure Details:: Details of the procedure were explained the patient. The patient taken the procedure room placed in the sitting position. The area over the pump was cleansed using chlorhexidine as a cleansing solution. Using a 22-gauge needle the pump was accessed without difficulty. 8 mL of solution was removed and discarded appropriately. 8 mL of solution was expected. The pump was then filled with 20 cc of morphine sulfate 5 mg/mL and the dose was increased to 1.152 mg/day. Patient's next refill date will be August 22, 2022. Plan and Disposition:: Patient was discharged without incident.
== END 2022-06-26 12:15 | disposition home or self-care (01) ==
PROVIDERS: PCP Family Medicine; Visit Provider Nurse Anesthetist, Certified Registered
DX: M51.16 Intervertebral disc disorders with radiculopathy, lumbar region (principal); M96.1 Postlaminectomy syndrome, not elsewhere classified
CPT/HCPCS: 62370

== ENCOUNTER → 2022-08-17 08:18 | Outpatient (CLI) | payer BC, SELFPAY ==
--- NOTE | 2022-08-17 08:21 | US_ITS ---
FINAL REPORT TECHNIQUE: Sonographic images of the right upper quadrant were obtained. CLINICAL HISTORY: ELEVATED LFT S FINDINGS: There is fatty infiltration of the liver. No focal liver lesion is identified. The gallbladder is well filled. There are no gallstones. There is no pericholecystic fluid collection or gallbladder wall thickening. The common duct measures 3 mm which is within normal limits. The pancreatic tail is partially obscured by bowel gas. Otherwise, it has a normal appearance. The right kidney measures 10.5 cm in werl-xi-qqwr length. There is no hydronephrosis, mass, or stone. There is no right upper quadrant ascites. IMPRESSION: Fatty liver. Reviewed, Interpreted and Dictated by Tatyana Merlos MD Transcribed by Evelia Soto Authenticated and [facility]
== END ==
PROVIDERS: PCP Family Medicine; Visit Provider Physician Assistant
DX: R79.89 Other specified abnormal findings of blood chemistry (principal)
CPT/HCPCS: 76705

== ENCOUNTER 2022-08-21 11:45 | Day surgery (SDC) | payer BC, SELFPAY ==
[2022-08-21 11:50] VITALS: BP 119/71; PULSE 76; RESP 18; TEMP 36.8; O2SAT 96; BMI 39.3
[2022-08-21 12:01] VITALS: BP 119/63; PULSE 75; RESP 18; O2SAT 98
[2022-08-21 12:02] VITALS: BP 119/63; PULSE 75; RESP 18; O2SAT 98
[2022-08-21 12:10] VITALS: BP 103/63; PULSE 71; RESP 18; O2SAT 93
--- NOTE | 2022-08-21 12:20 | EXP.PAIN.PRO ---
Procedure Date: 08/21/22 Time: 12:00 Anesthesiologist:: Yunier Frost CRNA Complications:: None Pre-procedure Diagnosis:: Degenerative disc disease lumbar spine multilevels. Lumbar radiculopathy. Lumbar postlaminectomy syndrome Post-procedure Diagnosis:: Same. Indications for Procedure:: This patient is a very pleasant 47-year-old male who comes our office today for intrathecal pain pump interrogation refill. He is currently being managed with morphine sulfate 5 mg/mL at 1.1520 mg/day. He is doing very well on his current management. He is not requesting any increase. Procedure Details:: Details of the procedure explained the patient. The patient taken to procedure room placed in sitting position. The area of the pump was cleansed using chlorhexidine as a cleansing solution. The pump was accessed with ease using an inch and a half 22-gauge needle. 6.9 mL of solution was withdrawn and discarded appropriately. The pump was then filled with 20 cc of morphine sulfate 5 mg/mL at 1.1520 mg/day. No changes were made. Plan and Disposition:: Patient was discharged without incident
== END 2022-08-21 12:10 | disposition home or self-care (01) ==
PROVIDERS: PCP Family Medicine; Visit Provider Nurse Anesthetist, Certified Registered
DX: Z45.1 Encounter for adjustment and management of infusion pump (principal); M51.16 Intervertebral disc disorders with radiculopathy, lumbar region; M96.1 Postlaminectomy syndrome, not elsewhere classified
CPT/HCPCS: 95991

== ENCOUNTER 2022-10-16 13:45 | Day surgery (SDC) | payer BC, SELFPAY ==
[2022-10-16 13:59] VITALS: BP 127/72; PULSE 73; RESP 18; TEMP 36.4; O2SAT 94; BMI 36.9
[2022-10-16 14:04] VITALS: BP 150/85; PULSE 71; RESP 18; O2SAT 97
[2022-10-16 14:05] VITALS: BP 150/85; PULSE 71; RESP 18; O2SAT 97
--- NOTE | 2022-10-16 14:15 | EXP.PAIN.PRO ---
Procedure Date: 10/16/22 Time: 13:40 Anesthesiologist:: Yunier Frost CRNA Complications:: None Pre-procedure Diagnosis:: Degenerative disc disease lumbar spine multilevels. Lumbar radiculopathy. Lumbar postlaminectomy syndrome. Post-procedure Diagnosis:: Same. Indications for Procedure:: Patient is a very pleasant 47-year-old male that comes our clinic today for intrathecal pain pump interrogation refill. He is currently being managed with morphine sulfate 5 mg/mL at 1.15 to 0 mg/day. He is doing very well on his current intrathecal pain pump management. He is not requesting any changes. He does not report any side effects or complications with his intrathecal pain pump management. Procedure Details:: Details of the procedure explained to the patient. The patient taken the procedure room placed in the sitting position. The area over the pump was cleansed using chlorhexidine as a cleansing solution. The pump was interrogated. The pump was accessed with ease using a 22-gauge 2 inch needle. 6.4 mL of solution was withdrawn and discarded appropriately. The pump was then filled with 20 cc of solution containing morphine sulfate 5 mg/mL. Plan and Disposition:: Patient was discharged without incident.
[2022-10-16 14:17] VITALS: BP 105/68; PULSE 69; RESP 18; O2SAT 94
== END 2022-10-16 14:17 | disposition home or self-care (01) ==
PROVIDERS: PCP Family Medicine; Visit Provider Nurse Anesthetist, Certified Registered
DX: Z45.1 Encounter for adjustment and management of infusion pump (principal); M51.16 Intervertebral disc disorders with radiculopathy, lumbar region; M96.1 Postlaminectomy syndrome, not elsewhere classified
CPT/HCPCS: 95991

== ENCOUNTER 2022-12-11 12:46 | Day surgery (SDC) | payer BC, SELFPAY ==
[2022-12-11 12:54] VITALS: BP 119/62; PULSE 68; RESP 18; TEMP 36.8; O2SAT 93; BMI 36.4
[2022-12-11 13:02] VITALS: BP 130/90; PULSE 95; RESP 20; O2SAT 96
[2022-12-11 13:15] VITALS: BP 123/65; PULSE 71; RESP 18; O2SAT 93
--- NOTE | 2022-12-11 14:29 | EXP.PAIN.PRO ---
Procedure Date: 12/11/22 Time: 14:00 Anesthesiologist:: Yunier Frost CRNA Complications:: None Pre-procedure Diagnosis:: Degenerative disc disease lumbar spine multilevels. Lumbar radiculopathy. Lumbar postlaminectomy syndrome. Post-procedure Diagnosis:: Same. Indications for Procedure:: Patient is a very pleasant 47-year-old male comes our clinic today for intrathecal pain pump interrogation and refill. Patient currently being managed with morphine sulfate 5 mg/mL at 1.152 mg/day. Patient requesting a small increase in his overall rate today. Having some extra pain in his low back due to increased activity over the past weekend. Patient has been more time in the yard and home projects with the weather being nice. Patient also complaining of occipital pain. He points to the bilateral occipital nerve area bilaterally. He states pain comes on to the scalp and into the posterior cervical spine. He rates that pain 7/10. I discussed in detail with the patient regarding bilateral septal nerve blocks. He wishes to proceed. Procedure Details:: Details of the procedure explained to the patient. Patient taken to procedure room placed in the sitting position. The area over the pump was cleansed using chlorhexidine as a cleansing solution. The pump was interrogated. The pump was accessed with ease using a 22-gauge inch and half needle. 6 mL of solution was withdrawn and discarded appropriately. The pump was then filled with 20 cc of morphine sulfate 5 mg/mL the rate was increased to 1.3 mg/day. Patient tolerated procedure without difficulty. There are no complications Plan and Disposition:: Patient was discharged without incident. We will schedule him for bilateral occipital nerve blocks in the near future.
== END 2022-12-11 13:15 | disposition home or self-care (01) ==
LOC: SC.PAINP 12:46
PROVIDERS: PCP Family Medicine; Visit Provider Nurse Anesthetist, Certified Registered
DX: M51.16 Intervertebral disc disorders with radiculopathy, lumbar region (principal); M96.1 Postlaminectomy syndrome, not elsewhere classified; Z45.1 Encounter for adjustment and management of infusion pump
CPT/HCPCS: 62370

== ENCOUNTER 2022-12-25 11:42 | Day surgery (SDC) | payer BC, SELFPAY ==
[2022-12-25 11:57] VITALS: BP 117/66; PULSE 72; RESP 18; TEMP 36.6; O2SAT 95; BMI 36.4
[2022-12-25 12:18] VITALS: BP 110/57; PULSE 65; RESP 18; O2SAT 95
--- NOTE | 2022-12-25 12:23 | P.PCN_ITS ---
Procedure Date: 12/25/22 Time: 12:15 Anesthesiologist:: Yunier Frost CRNA Complications:: None Pre-procedure Diagnosis:: Chronic headaches. Degenerative disc disease lumbar spine multilevels. Lumbar radiculopathy. Lumbar postlaminectomy syndrome. Lumbar spondylosis. Multilevel lumbar facet arthropathy Post-procedure Diagnosis:: Same. Indications for Procedure:: Patient is a very pleasant 47-year-old male that we have been treating for quite some time for chronic low back pain as well as bilateral hip and leg radicular symptoms. Patient currently being managed with intrathecal morphine sulfate 5 mg/mL. His rate is currently 1.3 mg/day. Patient has been dealing with cervical neck pain as well as chronic headaches. He presents today for bilateral occipital nerve blocks. Patient also complained of lumbar back pain. Just off midline. Upon examination pain seems to be facet generated. He has difficulty with flexion, extension, left and right rotation. I discussed in detail with the patient regarding lumbar facet blocks. Patient reports he has had lumbar facet blocks in the past with significant improvement. Patient also reports he had radiofrequency ablation lumbar facet joints. Procedure Details:: Details of the procedure explained to the patient. The patient taken the procedure room placed in the sitting position. The area over the occipital nerves was cleaned using chlorhexidine as a cleansing solution. Using a 25- gauge inch and half needle the right occipital nerve area was injected with 5 cc of a solution containing 1% lidocaine +0.25% Marcaine and 20 mg of Depo-Medrol. The same procedure was done on the left side. These injections were done after negative aspiration. Patient tolerated procedure without difficulty. No complications. Plan and Disposition:: Patient was discharged without incident.
== END 2022-12-25 12:18 | disposition home or self-care (01) ==
PROVIDERS: PCP Family Medicine; Visit Provider Nurse Anesthetist, Certified Registered
DX: M51.16 Intervertebral disc disorders with radiculopathy, lumbar region (principal); M47.26 Other spondylosis with radiculopathy, lumbar region; M96.1 Postlaminectomy syndrome, not elsewhere classified; R51.9 Headache, unspecified
CPT/HCPCS: 64405; 64450; J1040

== ENCOUNTER 2023-01-08 11:41 | Day surgery (SDC) | payer BC, SELFPAY ==
[2023-01-08 11:50] VITALS: BP 104/60; PULSE 69; RESP 18; TEMP 36.3; O2SAT 93; BMI 35.6
--- NOTE | 2023-01-08 12:03 | P.PCN_ITS ---
Procedure Date: 01/08/23 Time: 12:00 Anesthesiologist:: Yunier Frost CRNA Complications:: None Pre-procedure Diagnosis:: Degenerative disc lumbar spine multilevels. Lumbar radiculopathy. Lumbar spondylosis. Multilevel lumbar facet arthropathy. Lumbar postlaminectomy syndrome Post-procedure Diagnosis:: Same. Indications for Procedure:: Very pleasant 47-year-old male that comes our clinic today for medial branch block lumbar bilaterally L4-5, L5-S1. Patient complains of low back pain with flexion, extension, left and right rotation. He rates his pain 7/10. Procedure Details:: Informed consent was obtained and the risk and benefits of the procedure was explained to the patient. Patient was taken to the procedure room where noninvasive monitors were placed, including noninvasive blood pressure cuff as well as pulse oximeter. The area over the lumbar spine was cleansed using chlorhexidine as a cleansing solution. I anesthetized the skin and subcutaneous tissues with 1% Lidocaine. I placed 22-gauge spinal needles into the facet joint/ medial branches of L4-L5, and L5-S1 bilaterally. Needle placement was confirmed with fluoroscopy. After confirmation of needle placement, each site was injected with 1 mL of 1% lidocaine and 0.25 % Marcaine and 10 mg of Depo- Medrol. A total of 80 mg of depo medrol was used for bilateral medial branch blocks of L4-L5, and L5-S1 bilaterally. Patient tolerated the procedure without difficulty. There were no complications. Plan and Disposition:: Patient was discharged without incident.
[2023-01-08 12:06] VITALS: BP 127/75; PULSE 77; RESP 18; O2SAT 98
[2023-01-08 12:08] VITALS: BP 127/75; PULSE 77; RESP 18; O2SAT 97
[2023-01-08 12:11] VITALS: BP 111/63; PULSE 71; RESP 18; O2SAT 93
== END 2023-01-08 12:11 | disposition home or self-care (01) ==
PROVIDERS: PCP Family Medicine; Visit Provider Nurse Anesthetist, Certified Registered
DX: M51.16 Intervertebral disc disorders with radiculopathy, lumbar region (principal); M47.896 Other spondylosis, lumbar region; M96.1 Postlaminectomy syndrome, not elsewhere classified
CPT/HCPCS: 64493; 64494; J1040

== ENCOUNTER 2023-02-05 11:23 | Day surgery (SDC) | payer BC, SELFPAY ==
[2023-02-05 10:52] VITALS: BP 107/62; PULSE 64; RESP 18; O2SAT 96
[2023-02-05 11:38] VITALS: BP 102/66; BP 147/100; PULSE 76; PULSE 79; RESP 18; TEMP 36.4; O2SAT 96; O2SAT 97; BMI 35.2
--- NOTE | 2023-02-05 11:54 | EXP.PAIN.PRO ---
Procedure Date: 02/05/23 Time: 11:50 Anesthesiologist:: Yunier Frost CRNA Complications:: None Pre-procedure Diagnosis:: Degenerative disc sees lumbar spine multilevels. Lumbar radiculopathy. Lumbar spondylosis. Multilevel lumbar facet arthropathy. Lumbar postlaminectomy syndrome. Post-procedure Diagnosis:: Same. Indications for Procedure:: Very pleasant 47-year-old male comes our clinic today for intrathecal pain pump interrogation refill. Patient currently being managed with morphine sulfate 5 mg/mL at 1.3 mg/day. Patient doing very well with his current settings. He does not complain of any side effects or complications regarding the intrathecal pain pump management. Procedure Details:: Details of the procedure explained the patient. Patient taken to procedure room placed in the sitting position. The area over the pump was cleansed using chlorhexidine as a cleansing solution. The pump was interrogated. The pump was accessed with ease using a 22-gauge inch and half needle. 5.2 mL of solution was withdrawn and discarded appropriately. The pump was then filled with 20 cc incrementally of morphine sulfate 5 mg/mL. Plan and Disposition:: Patient was discharged without incident.
[2023-02-05 14:21] LABS: Amphetamine/Metha Screen,Urine Negative ng/ml (<1000)
[2023-02-05 14:22] LABS: Barbiturates Screen,Urine Negative ng/ml (<200); Benzodiazepines Screen,Urine Negative ng/ml (<200)
[2023-02-05 14:23] LABS: Cannabinoid Screen,Urine Negative ng/ml (<50)
[2023-02-05 14:24] LABS: Cocaine Screen,Urine Negative ng/ml (<300); Methadone Screen,Urine Negative ng/ml (<300)
[2023-02-05 14:25] LABS: Opiate Screen,Urine Positive ng/ml (<300)
[2023-02-05 14:26] LABS: Phencyclidine Screen,Urine Negative ng/ml (<25)
[2023-02-08 16:13] LABS: Codeine Negative (Cutoff=100); Hydrocodone Negative (Cutoff=100); Hydromorphone Negative (Cutoff=100); Morphine Positive (.); Opiates Positive (.)
== END 2023-02-05 11:52 | disposition home or self-care (01) ==
PROVIDERS: Nurse Practitioner Family; PCP Family Medicine; Visit Provider Nurse Anesthetist, Certified Registered
DX: M51.16 Intervertebral disc disorders with radiculopathy, lumbar region (principal); M47.26 Other spondylosis with radiculopathy, lumbar region; M96.1 Postlaminectomy syndrome, not elsewhere classified
CPT/HCPCS: 80305; 80361; 80365; 95991; G0480

== ENCOUNTER 2023-04-02 12:07 | Day surgery (SDC) | payer BC, SELFPAY ==
[2023-04-02 12:16] VITALS: BP 126/77; PULSE 71; RESP 17; TEMP 36.3; O2SAT 94; BMI 35.2
[2023-04-02 12:27] VITALS: BP 109/67; PULSE 64; RESP 18; O2SAT 97
[2023-04-02 12:28] VITALS: BP 109/67; PULSE 64; RESP 18; O2SAT 97
--- NOTE | 2023-04-02 12:36 | EXP.PAIN.PRO ---
Procedure Date: 04/02/23 Time: 12:32 Anesthesiologist:: Yunier Frost CRNA Complications:: None Pre-procedure Diagnosis:: Degenerative disc disease lumbar spine multilevels. Lumbar radiculopathy. Lumbar postlaminectomy syndrome. Post-procedure Diagnosis:: Same. Indications for Procedure:: Patient is a very pleasant 47-year-old male that comes our clinic today for intrathecal pain pump interrogation refill. Patient currently being managed with morphine sulfate 5 mg/mL at 1.3 mg/day. Patient doing very well with his current settings. Patient does not complain of any side effects or complication regarding his current intrathecal pain pump management. Procedure Details:: Details of the procedure were explained to the patient. The patient taken to procedure room placed in the sitting position. The area of the pump was cleansed using chlorhexidine as a cleansing solution. The pump was interrogated. The pump was accessed with ease using a 22-gauge inch and a half needle. 4.8 mL of solution was withdrawn and discarded appropriately. The pump was then filled with 20 cc of a solution containing morphine sulfate 5 mg/mL. The rate will remain the same at 1.3 mg/day. Plan and Disposition:: Patient tolerated the procedure without difficulty. He was discharged without incident.
[2023-04-02 12:39] VITALS: BP 116/81; PULSE 62; RESP 20
== END 2023-04-02 12:39 | disposition home or self-care (01) ==
PROVIDERS: PCP Family Medicine; Visit Provider Nurse Anesthetist, Certified Registered
DX: M51.16 Intervertebral disc disorders with radiculopathy, lumbar region (principal); M96.1 Postlaminectomy syndrome, not elsewhere classified; Z97.8 Presence of other specified devices
CPT/HCPCS: 95991

== ENCOUNTER 2023-05-28 12:39 | Day surgery (SDC) | payer BC, SELFPAY ==
[2023-05-28 13:03] VITALS: BP 105/60; PULSE 74; RESP 16; TEMP 36.7; O2SAT 94; BMI 35.2
[2023-05-28 13:08] VITALS: BP 145/80; PULSE 65; RESP 18; O2SAT 95
[2023-05-28 13:09] VITALS: BP 145/80; PULSE 66; RESP 18; O2SAT 95
--- NOTE | 2023-05-28 13:15 | P.PCN_ITS ---
Procedure Date: 05/28/23 Time: 13:10 Anesthesiologist:: Yunier Frost CRNA Complications:: None Pre-procedure Diagnosis:: Degenerative disc lumbar spine multilevels. Lumbar radiculopathy. Lumbar postlaminectomy syndrome. Post-procedure Diagnosis:: Same. Indications for Procedure:: Patient is a very pleasant 47-year-old male that comes our clinic today for intrathecal pain pump interrogation refill. He is currently being managed with morphine sulfate 5 mg/mL at 1.3 mg/day. We will change his concentration of morphine sulfate today to 7.5 mg/mL. Patient doing very well with his current settings. Patient does not request any changes today. He does not report any side effects or complications regarding his intrathecal pain pump management. Procedure Details:: Details of the procedure explained to the patient. The patient taken to procedure room placed in the sitting position. The area over the pump was cleaned using chlorhexidine as a cleansing solution. The pump was interrogated. The pump was accessed with ease using a 22-gauge inch and half needle. 5 mL of solution was withdrawn discarded appropriate. The pump was then filled with 20 cc of solution containing morphine sulfate 7.5 mg/mL. Patient tolerated proced ure without difficulty. There are no complications. Plan and Disposition:: Patient was discharged without incident.
[2023-05-28 13:19] VITALS: BP 121/74; PULSE 63; RESP 16; O2SAT 94
== END 2023-05-28 13:19 | disposition home or self-care (01) ==
PROVIDERS: PCP Family Medicine; Visit Provider Nurse Anesthetist, Certified Registered
DX: M51.16 Intervertebral disc disorders with radiculopathy, lumbar region (principal); M96.1 Postlaminectomy syndrome, not elsewhere classified; Z97.8 Presence of other specified devices
CPT/HCPCS: 95991

== ENCOUNTER → 2023-06-27 14:17 | Outpatient (CLI) | payer BC, SELFPAY ==
[2023-06-28 09:19] LABS: Influenza A, PCR Not Detected (NotDetected); Influenza B, PCR Not Detected (NotDetected)
[2023-06-28 09:22] LABS: Coronavirus 19, PCR Detected (NotDetected)
== END ==
PROVIDERS: PCP Family Medicine; Visit Provider Physician Assistant
DX: Z20.822 Contact with and (suspected) exposure to COVID-19 (principal); U07.1 COVID-19
CPT/HCPCS: 87581; 87632; 87635; 87636; 87798

== ENCOUNTER 2023-08-13 09:48 | Day surgery (SDC) | payer BC, SELFPAY ==
[2023-08-13 10:11] VITALS: BP 123/70; PULSE 70; RESP 18; TEMP 36.7; O2SAT 93; BMI 37.3
[2023-08-13 10:18] VITALS: BP 116/63; PULSE 73; RESP 18; O2SAT 96
[2023-08-13 10:20] VITALS: BP 116/63; PULSE 73; RESP 18; O2SAT 96
--- NOTE | 2023-08-13 10:31 | EXP.PAIN.PRO ---
Procedure Date: 08/13/23 Time: 10:15 Anesthesiologist:: Yunier Frost CRNA Complications:: None Pre-procedure Diagnosis:: Degenerative disc lumbar spine multilevels. Lumbar radiculopathy. Lumbar postlaminectomy syndrome. Bilateral sacroiliitis. Post-procedure Diagnosis:: Same. Indications for Procedure:: Patient is a very pleasant 48-year-old male comes our clinic today for intrathecal pain pump interrogation refill. He is currently being managed with morphine sulfate 7.5 mg/mL at a rate of 1.3 mg/day. We will change the patient's morphine concentration to 10 mg/mL today. Patient reporting today he feels like he has been hit by a truck . Having increased low back pain as well as bilateral posterior hip pain. He rates his pain 8/10. Upon examination he has extreme point tenderness over the bilateral sacroiliac joints. He has positive Nelson's test bilaterally. Positive bilateral sacroiliac joint compression test. We discussed bilateral sacroiliac joint injections. He has had these in the past with significant improvement. However, he is very busy with work and is unable to make an appointment at this time. Patient requesting Medrol Dosepak. I think this is reasonable. Will see him back for bilateral sacroiliac joint injections if needed. Procedure Details:: Details of the procedure explained to the patient. The patient taken procedure and placed in the sitting position. The area over the pump was cleaned using chlorhexidine as a cleansing solution. The pump was interrogated. The pump was accessed with ease using a 22-gauge inch and half needle. 5 mL solution was withdrawn discarded appropriately. The pump was then filled with 20 cc of a solution containing morphine sulfate 10 mg/mL. Rate will continue at 1.3 mg/day. Patient tolerated procedure without difficulty. There are no complications. Plan and Disposition:: Patient was discharged without incident.
[2023-08-13 10:36] VITALS: BP 103/70; PULSE 66; RESP 18; O2SAT 93
== END 2023-08-13 10:36 | disposition home or self-care (01) ==
PROVIDERS: PCP Family Medicine; Visit Provider Nurse Anesthetist, Certified Registered
DX: M51.16 Intervertebral disc disorders with radiculopathy, lumbar region (principal); M96.1 Postlaminectomy syndrome, not elsewhere classified; M46.1 Sacroiliitis, not elsewhere classified; Z97.8 Presence of other specified devices; Z45.1 Encounter for adjustment and management of infusion pump
CPT/HCPCS: 95991

== ENCOUNTER 2023-10-01 11:09 | Day surgery (SDC) | payer BC, SELFPAY ==
[2023-10-01 11:35] VITALS: BP 155/83; PULSE 83; RESP 18; TEMP 36.8; O2SAT 93; BMI 38.0
[2023-10-01 12:05] VITALS: BP 124/99; PULSE 90; RESP 20
[2023-10-01 12:10] VITALS: BP 116/64; PULSE 67; RESP 16; O2SAT 93
--- NOTE | 2023-10-01 12:35 | P.PCN_ITS ---
Procedure Date: 10/01/23 Time: 12:00 Anesthesiologist:: Yunier Frost CRNA Complications:: None Pre-procedure Diagnosis:: Bilateral sacroiliitis Post-procedure Diagnosis:: Same. Indications for Procedure:: Patient is a very pleasant 48-year-old male comes our clinic today for bilateral sacroiliac joint injections. Patient reports bilateral posterior hip pain. Patient reports having difficulty transitioning from sitting to standing position. He rates his pain 8/10. Procedure Details:: Procedure: Bilateral sacroiliac joint injections under fluoroscopy Informed consent was obtained and the risks and benefits of the procedure were explained to the patient.~ The patient was taken to the procedure room and noninvasive monitors were placed including a noninvasive blood pressure cuff and pulse oximeter.~ The patient was placed prone on the procedure table. Both hips were cleansed using Betadine as a cleansing solution. C-arm fluoroscopy was used to view the right sacroiliac joint.~ The skin and subcutaneous tissues were anesthetized using lidocaine 1.5% and a 25-gauge needle.~ After this, a 22-gauge spinal needle was inserted under fluoroscopic guidance into the inferior aspect of the right sacroiliac joint.~ Omnipaque dye was injected and good spread was seen throughout the joint.~ After this, approximately 5 mL of bupivacaine, 0.25% and Depo-Medrol, 40 mg was incrementally injected into the right sacroiliac joint. We then moved to the left sacroiliac joint.~ The skin and subcutaneous tissues were anesthetized using lidocaine 1.5% and a 25-gauge needle.~ After this, a 22- gauge spinal needle was inserted under fluoroscopic guidance into the inferior aspect of the left sacroiliac joint.~ Omnipaque dye was injected and good spread was seen throughout the joint. After this, approximately 5 mL of bupivacaine, 0.25% and Depo-Medrol, 40 mg was incrementally injected into the left sacroiliac joint.~ The patient tolerated the procedure well with no complications. The patient was observed in the Pain Clinic and then was discharged home neurologically intact. Plan and Disposition:: Patient was discharged without incident.
[2023-10-01] MEDS: BUPIVACAINE 0.25% 10ML INJ 25 MG IJ (14:32)
[2023-10-01] MEDS: LIDOCAINE 1% 5ML PF VIAL 5 ML (14:32)
[2023-10-01] MEDS: methylPREDNISolone ACETATE 80MG/ML VIAL 80 MG (14:33)
== END 2023-10-01 12:10 | disposition home or self-care (01) ==
PROVIDERS: PCP Family Medicine; Visit Provider Nurse Anesthetist, Certified Registered
DX: M46.1 Sacroiliitis, not elsewhere classified (principal)
CPT/HCPCS: 27096; G0260; J1040

== ENCOUNTER 2023-10-16 13:34 | Outpatient (POV) | payer BC, SELFPAY ==
[2023-10-16 14:02] VITALS: BP 122/47; PULSE 78; RESP 18; O2SAT 94; BMI 38.0
--- NOTE | 2023-10-16 14:38 | EXP.PAIN.PRO ---
Procedure Date: 10/16/23 Time: 14:27 Anesthesiologist:: Adrienne Rand APRN Complications:: None Pre-procedure Diagnosis:: Degenerative disc disease of lumbar spine with lumbar radiculopathy symptoms, sacroiliitis, 2 prior back surgeries, lumbar spinal stenosis Post-procedure Diagnosis:: Same Indications for Procedure:: Patient is a pleasant 48-year-old male who presents today for follow-up of bilateral SI injections on 10/01/2023. Today he rates his pain an 8 out of 10. He states that this injection provided no additional relief. He states that he still continues to have worsening pain in his low back that radiates down his entire lower extremities. He does describe this as an aching, throbbing sensation with numbness and tingling. He states the pain is worse with standing or walking. He does state that even while he sitting he feels like his legs are completely numb and can even feel like 6 of cold sensation like water running down his legs. Patient does have a previous history of 2 prior back surgeries with [address] Cannon [place] [address] Dominguez. Patient is interested in any help we may be able to provide. He states that it does interfere with his ability to perform activities of daily living such as cooking and cleaning. Physical Exam: General: Alert and oriented x3, no acute distress, pleasant and cooperative Lungs: Respirations even and unlabored, symmetrical chest expansion Eyes: PERRL Musculoskeletal: Flexion and extension of lumbar [spine] somewhat guarded secondary to pain, [antalgic gait noted] Neurological: Speech clear, no gross sensory deficit Procedure Details:: Informed consent was obtained and the risk and benefits of the procedure were explained to the patient. Patient was taken to the procedure room where noninvasive monitoring was placed including noninvasive blood pressure cuff and pulse oximeter. Patient's pump was interrogated and was reprogrammed to morphine 1.43 mg/day. The patient tolerated the procedure well with no complications. Plan and Disposition:: Patient tolerated his intrathecal increase with no complications and was discharged neurologically intact. Due to the patient's worsening pain in his low back and legs and limited range of motion of his lumbar spine. I have discussed with the patient that he may benefit from a lumbar epidural steroid injection at the L5-S1 level. Patient does have moderate stenosis with moderate to high-grade neuroforaminal narrowing at this level. Risk and benefits of this injection were explained to the patient and he would like to proceed forward with this plan of care. I have also talked with the patient's regarding sending him for referral to neurosurgery due to the high-grade narrowing. Patient does state he now has [employer] insurance and would have to be a provider there at we will send this referral today and follow-up in future visits. Patient will be scheduled for an LESI L5-S1 under fluoroscopy. Patient has been instructed to contact the clinic with any concerns before the next appointment. Dr. Adams has reviewed this note and agrees with this plan of care. This note was dictated using voice recognition software and make contain errors or omissions. -- It Is medically necessary for this patient to continue to have their intrathecal pump refilled at regular intervals. This patient had an intrathecal pain pump implanted after meeting criteria of chronic intractable pain for greater than 3 months and failing conservative treatments. Patient has committed and been compliant to the treatment plan and all planned follow up care. Since implantation of the intrathecal pain pump, the patient has had decreased pain and been more functional. Oral medications have been reduced including intake of oral opioids. Patient continues to do well with intrathecal therapy with decrease in pain symptoms and increase in functional status. Stopping intrathecal medications can lead to life threatening withdrawal, seizures, cardiac arrest, severe pain, and possible . Pumps that are not refilled at regular intervals can be damages and cause and need for replacement. We continually titrate dose and concentration to optimize pain relief and function. We are limited in concentration for certain drugs to safely deliver medications through the pump and stay within the recommendations from the Polyanalges[employer] Consensus Committee Guidelines. Depending on dose and concentration these pumps may need to be refilled sooner than 3 months as we titrate.
== END 2023-10-16 23:59 | disposition home or self-care (01) ==
PROVIDERS: PCP Family Medicine; Visit Provider Nurse Practitioner Family
DX: M51.16 Intervertebral disc disorders with radiculopathy, lumbar region (principal); M46.1 Sacroiliitis, not elsewhere classified; M48.061 Spinal stenosis, lumbar region without neurogenic claudication; Z97.8 Presence of other specified devices; Z45.1 Encounter for adjustment and management of infusion pump
CPT/HCPCS: 62368; 99213; G0463

== ENCOUNTER 2023-11-12 12:31 | Day surgery (SDC) | payer BC, SELFPAY ==
[2023-11-12 12:56] VITALS: BP 148/83; PULSE 70; RESP 18; O2SAT 98
[2023-11-12 12:58] VITALS: BP 121/64; PULSE 76; RESP 18; O2SAT 92; BMI 39.3
--- NOTE | 2023-11-12 13:08 | EXP.PAIN.PRO ---
Procedure Date: 11/12/23 Time: 13:00 Anesthesiologist:: Yunier Frost CRNA Complications:: None Pre-procedure Diagnosis:: Degenerative disc lumbar spine multilevels. Lumbar radiculopathy. Lumbar spondylosis. Lumbar postlaminectomy syndrome. Post-procedure Diagnosis:: Same. Indications for Procedure:: Patient is a very pleasant 48-year-old male comes our clinic today for intrathecal pain pump interrogation refill. Patient currently being managed with morphine sulfate 10 mg/mL. His rate is 1.43 mg/day. Patient is requesting increase in rate today. Having increased low back pain as well as bilateral hip and leg radicular symptoms at times. I think this is reasonable. Will increase in by 20%. Patient is scheduled for lumbar epidural steroid injection at the L5-S1 level next week. Procedure Details:: Details of the procedure explained to the patient. Patient was taken procedure room placed in the sitting position. The area of the pump was cleansed using chlorhexidine as a cleansing solution. The pump was interrogated. The pump was accessed with ease using a 22-gauge inch and half needle. 8 mL solution was withdrawn discarded appropriate. The pump was then filled with 20 cc of solution containing morphine sulfate 10 mg/mL. The pump rate was increased by 20%. The new intrathecal rate is 1.716 mg/day Plan and Disposition:: Patient tolerated procedure without difficulty. There are no complications.
[2023-11-12 13:20] VITALS: BP 111/71; PULSE 64; RESP 16; O2SAT 92
[2023-11-12 14:01] LABS: Amphetamine/Metha Screen,Urine Negative ng/ml (<1000); Barbiturates Screen,Urine Negative ng/ml (<200)
[2023-11-12 14:02] LABS: Benzodiazepines Screen,Urine Negative ng/ml (<200); Cannabinoid Screen,Urine Negative ng/ml (<50)
[2023-11-12 14:03] LABS: Cocaine Screen,Urine Negative ng/ml (<300)
[2023-11-12 14:04] LABS: Methadone Screen,Urine Negative ng/ml (<300); Opiate Screen,Urine Positive ng/ml (<300)
[2023-11-12 14:05] LABS: Phencyclidine Screen,Urine Negative ng/ml (<25)
[2023-11-18 08:25] LABS: Codeine Negative (Cutoff=100); Hydrocodone Negative (Cutoff=100); Hydromorphone Negative (Cutoff=100); Morphine Positive (.); Opiates Positive (.)
== END 2023-11-12 13:20 | disposition home or self-care (01) ==
PROVIDERS: Anesthesiology; PCP Family Medicine; Visit Provider Nurse Anesthetist, Certified Registered
DX: M51.16 Intervertebral disc disorders with radiculopathy, lumbar region (principal); M47.26 Other spondylosis with radiculopathy, lumbar region; M96.1 Postlaminectomy syndrome, not elsewhere classified; Z45.1 Encounter for adjustment and management of infusion pump; Z97.8 Presence of other specified devices
CPT/HCPCS: 62370; 80307; 80361; 80365; G0480

== ENCOUNTER 2023-11-19 11:41 | Day surgery (SDC) | payer BC, SELFPAY ==
[2023-11-19 11:45] VITALS: BP 127/62; PULSE 90; RESP 16; TEMP 36.3; O2SAT 95; BMI 39.3
--- NOTE | 2023-11-19 12:02 | EXP.PAIN.PRO ---
Procedure Date: 11/19/23 Time: 11:55 Anesthesiologist:: Yunier Frost CRNA Complications:: None Pre-procedure Diagnosis:: Degenerative disc lumbar spine multilevels. Lumbar radiculopathy. Lumbar postlaminectomy syndrome. Lumbar spondylosis. Post-procedure Diagnosis:: Same. Indications for Procedure:: Patient is a pleasant 48-year-old male that comes to our clinic today for lumbar epidural steroid injection at the L5-S1 level. Patient reports low back pain as well as bilateral hip and leg radicular symptoms. He is currently being managed with intrathecal pain pump morphine sulfate 10 mg/mL at a rate of 1.716 mg/day. Procedure Details:: Procedure: Lumbar epidural steroid injection under fluoroscopy Informed consent was obtained and the risks and benefits of the procedure were explained to the patient. The patient was taken to the procedure room and noninvasive monitors placed, including noninvasive blood pressure cuff and pulse oximeter. The back was viewed using C-arm Fluoroscopy and prepped using Chloraprep as a cleansing solution and the L5-S1 interspace was palpated. Skin and subcutaneous tissues were anesthetized using lidocaine 1.5% and a 25-gauge needle. After this, an 18-gauge Touhy epidural needle was placed into the L5-S1 interspace and advanced using fluoroscopic guidance and loss of resistance to air until the epidural space was encountered. After confirmation of needle placement in the epidural space, with dye, a solution containing normal saline, 3 mL and Depo-Medrol 80 mg were incrementally injected into the lumbar epidural space. The patient tolerated the procedure well with no complications. The patient was observed in the Pain Clinic and then discharged home neurologically intact. Plan and Disposition:: Patient was discharged without incident.
[2023-11-19 12:04] VITALS: BP 116/63; PULSE 59; RESP 18; O2SAT 92
[2023-11-19] MEDS: methylPREDNISolone ACETATE 80MG/ML VIAL 80 MG (12:17)
[2023-11-19 12:18] VITALS: BP 113/72; PULSE 81; RESP 18; O2SAT 94
[2023-11-19 12:30] VITALS: BP 113/72; PULSE 81; RESP 18; O2SAT 94
== END 2023-11-19 12:04 | disposition home or self-care (01) ==
PROVIDERS: PCP Family Medicine; Visit Provider Nurse Anesthetist, Certified Registered
DX: M51.16 Intervertebral disc disorders with radiculopathy, lumbar region (principal); M96.1 Postlaminectomy syndrome, not elsewhere classified; M47.26 Other spondylosis with radiculopathy, lumbar region
CPT/HCPCS: 62323; J1010

== ENCOUNTER 2023-12-03 12:34 | Day surgery (SDC) | payer BC, SELFPAY ==
[2023-12-03 12:50] VITALS: BP 123/72; PULSE 79; RESP 18; TEMP 36.7; O2SAT 98
[2023-12-03 13:00] VITALS: BP 125/78; PULSE 85; RESP 18; O2SAT 98; BMI 35.9
--- NOTE | 2023-12-03 13:02 | MR_ITS ---
FINAL REPORT CLINICAL HISTORY: LOW BACK PAIN pt has pain pump FINDINGS: Multiplanar MR imaging of the lumbar spine was performed without contrast. There is artifact from the patient's pain pump which obscures some of the detail. On the T2-weighted images, disc degeneration is seen at multiple levels. The vertebral alignment is normal. There is no evidence of fracture. No bony mass is identified. The conus has an unremarkable appearance. L1-2: An annular bulge is present. A small right paracentral disc protrusion mildly indents the thecal sac. There is no significant canal stenosis or neural foraminal narrowing. L2-3: An annular bulge is present. There is no significant canal stenosis or neural foraminal narrowing. L3-4: An annular bulge is present. A central disc protrusion indents the thecal sac. This likely causes left or bilateral L4 nerve root impingement. There is mild central canal stenosis with an AP diameter of the thecal sac of 8 mm. There is moderate bilateral neural foraminal narrowing. L4-5: An annular bulge is present. A left paracentral disc protrusion indents the thecal sac. There is left L5 nerve root impingement. There is mild central canal stenosis with an AP diameter of the thecal sac of 8 mm. Moderate right and severe left neural foraminal narrowing is seen. L5-S1: An annular bulge is present. Vertebral osteophytes and bilateral facet arthropathy are present. Postoperative changes are seen on the left. There is a central disc protrusion which contacts the S1 nerve roots. Moderate bilateral neural foraminal narrowing is seen. IMPRESSION: Postoperative changes on the left at L5-S1. Mild central canal stenosis at L3-4 and L4-5. Central L3-4 disc protrusion with probable left or bilateral L4 nerve root impingement. Left paracentral L4-5 disc protrusion with left L5 nerve root impingement. Central L5-S1 disc protrusion with bilateral S1 nerve root impingement. Authenticated and ERN
[2023-12-03 14:34] VITALS: BP 147/79; PULSE 65; RESP 18; O2SAT 92
--- NOTE | 2023-12-03 14:35 | EXP.PAIN.PRO ---
Procedure Date: 12/03/23 Anesthesiologist:: Yunier Frost CRNA Complications:: None
[2023-12-03 14:37] VITALS: BP 147/79; PULSE 66; RESP 18; O2SAT 92
[2023-12-03 14:44] VITALS: BP 125/63; PULSE 68; RESP 18; O2SAT 92
--- NOTE | 2023-12-03 14:50 | EXP.PAIN.PRO ---
Procedure Date: 12/03/23 Time: 14:20 Anesthesiologist:: Yunier Frost CRNA Complications:: None Pre-procedure Diagnosis:: Degenerative disc lumbar spine. Lumbar postlaminectomy syndrome. Lumbar radiculopathy. Post-procedure Diagnosis:: Same. Indications for Procedure:: Patient is a pleasant 48-year-old male comes our clinic today for intrathecal pain pump emptying for MRI procedure and refill. Patient is currently being managed with morphine sulfate 10 mg/mL at 1.7160 mg/day. He is doing very well with his current settings Procedure Details:: Details of the procedure explained to the patient. The patient taken procedure room placed in sitting position. The intrathecal pain pump was accessed with ease using a 22-gauge inch and half needle. The pump was emptied. 16 mL of solution was withdrawn. Patient returned from MRI pump was accessed with ease and refilled with 16 mL of solution. Patient tolerated procedure without difficulty. There are no complications. Plan and Disposition:: Patient was discharged without incident.
== END 2023-12-03 14:45 | disposition home or self-care (01) ==
PROVIDERS: PCP Family Medicine; Visit Provider Neurological Surgery
DX: M51.16 Intervertebral disc disorders with radiculopathy, lumbar region (principal); M96.1 Postlaminectomy syndrome, not elsewhere classified; Z97.8 Presence of other specified devices; Z45.1 Encounter for adjustment and management of infusion pump
CPT/HCPCS: 72148; 76376; 95991

== ENCOUNTER 2024-01-28 13:22 | Day surgery (SDC) | payer BC, SELFPAY ==
[2024-01-28 13:45] VITALS: BP 108/63; PULSE 80; RESP 16; TEMP 36.4; O2SAT 91; BMI 39.3
[2024-01-28 13:54] VITALS: BP 113/63; PULSE 78; RESP 18; O2SAT 95
[2024-01-28 13:55] VITALS: BP 113/63; PULSE 80; RESP 18; O2SAT 95
--- NOTE | 2024-01-28 14:03 | P.PCN_ITS ---
Procedure Date: 01/28/24 Time: 14:00 Anesthesiologist:: Yunier Frost CRNA Complications:: None Pre-procedure Diagnosis:: Degenerative disc lumbar spine multilevels. Lumbar radiculopathy. Lumbar postlaminectomy syndrome. Post-procedure Diagnosis:: Same Indications for Procedure:: Patient is a very pleasant 48-year-old male comes our clinic today for intrathecal pain pump interrogation refill. He is currently being managed with morphine sulfate 2 mg/mL at 1.7160 mg/day. Patient doing very well. He is reporting some increased pain with activity at this time. The pain seems to be centered in the low lumbar back area as well as some bilateral hip radiculopathy. I will increase his pump by 20% today. Patient did receive a lumbar epidural steroid injection several months ago and reports significant improvement. Patient has lumbar spine surgeon consultation next Saturday with Dr. Cannon group at the [facility]. He will return to see us for follow- up visit after. Procedure Details:: Details of the procedure explained to the patient. The patient taken procedure room placed in the sitting position. The area over the pump was cleansed using chlorhexidine's cleansing solution. The pump was interrogated. The pump was accessed with ease using a 22-gauge inch and half needle. 5 mL of solution was withdrawn discarded appropriate. The pump was then filled with 20 cc of solution containing morphine sulfate 10 mg/mL. The rate will increase by 20%. The new rate will be 2.0600 mg/day. Patient tolerated procedure without difficulty. No complications. Plan and Disposition:: Patient was discharged without incident.
[2024-01-28 14:10] VITALS: BP 118/62; PULSE 72; RESP 18; O2SAT 94
== END 2024-01-28 14:11 | disposition home or self-care (01) ==
PROVIDERS: PCP Family Medicine; Visit Provider Nurse Anesthetist, Certified Registered
DX: G89.29 Other chronic pain (principal); M51.36 Other intervertebral disc degeneration, lumbar region; M96.1 Postlaminectomy syndrome, not elsewhere classified
CPT/HCPCS: 95991

== ENCOUNTER 2024-01-31 14:36 | Outpatient (CLI) | payer BC, SELFPAY ==
--- NOTE | 2024-01-31 14:44 | XR_ITS ---
FINAL REPORT CLINICAL HISTORY: SOA FINDINGS: Two views of the chest were obtained. The heart size and pulmonary vascularity are within normal limits. The mediastinum is normal. No acute pulmonary abnormality is identified. There is no pneumothorax. The bony thorax is intact. IMPRESSION: No active cardiopulmonary disease. Reviewed, Interpreted and Dictated by Andrea Ohara III, MD Transcribed by Ness Dudley Authenticated and [facility]
--- NOTE | 2024-01-31 14:58 | ECG_ITS ---
APPROVED REPORT Exam: Resting ECG HR:76 bpm ECG Measurements Heart Rate 76 AXES AK 152 P 34 QRSd 110 QRS -20 QT 358 T 49 QTc 388 Conclusion SINUS RHYTHM NORMAL ECG UNCONFIRMED REPORT Electronically signed by : Sandro Pozo MD 02/02/2024 18:57:00
[2024-01-31 15:29] LABS: Creatine Kinase 127 U/L (55-170)
[2024-01-31 15:43] LABS: CKMB Relative Index 0.8 U/L (0-4.0)
[2024-01-31 16:09] LABS: Troponin I < 0.01 ng/ml (0.00-0.034)
== END 2024-01-31 23:59 | disposition home or self-care (01) ==
LOC: RT 14:40
PROVIDERS: PCP Family Medicine; Visit Provider Physician Assistant
DX: R06.02 Shortness of breath (principal); R07.89 Other chest pain
CPT/HCPCS: 36415; 71046; 82550; 82553; 84484; 93005

== ENCOUNTER 2024-03-31 12:55 | Day surgery (SDC) | payer BC, SELFPAY ==
[2024-03-31 13:10] VITALS: BP 130/82; PULSE 76; RESP 16; TEMP 36.6; O2SAT 92; BMI 39.7
[2024-03-31 13:34] VITALS: BP 118/63; PULSE 81; RESP 18; O2SAT 97
[2024-03-31 13:35] VITALS: BP 118/63; PULSE 81; RESP 18; O2SAT 97
[2024-03-31 13:49] VITALS: BP 118/65; PULSE 70; RESP 16; O2SAT 95
--- NOTE | 2024-03-31 13:49 | EXP.PAIN.PRO ---
Procedure Date: 03/31/24 Time: 13:30 Anesthesiologist:: Yunier Frost CRNA Complications:: None Pre-procedure Diagnosis:: Degenerative disc lumbar spine multilevels. Lumbar radiculopathy. Lumbar postlaminectomy syndrome. Post-procedure Diagnosis:: Same. Indications for Procedure:: Patient is a pleasant 48-year-old male who comes to clinic today for intrathecal pain pump interrogation and refill. Patient is currently being managed with morphine sulfate 10 mg/mL at a rate of 2.0600 mg/day. He is reporting some low back pain as well as bilateral leg pain with activity. He reports he is up to walking 4 miles per day. He rates his pain today 6/10. I recommend 20% increase in his pump rate. He wishes to proceed. Procedure Details:: Details of the procedure explained to the patient. The patient taken procedure and placed in sitting position. The area of the pump cleaned using chlorhexidine as a cleansing solution. The pump was interrogated. The pump was accessed with ease using a 22-gauge inch and half needle. 5.5 mL of solution was withdrawn discarded appropriate. The pump was then filled with 20 cc of solution containing morphine sulfate 10 mg/mL. The pump rate will increase to 2.4720 mg/day. Patient tolerated procedure without difficulty. There are no complications. Plan and Disposition:: Patient was discharged without incident.
== END 2024-03-31 13:51 | disposition home or self-care (01) ==
PROVIDERS: PCP Family Medicine; Visit Provider Nurse Anesthetist, Certified Registered
DX: M51.36 Other intervertebral disc degeneration, lumbar region (principal); M96.1 Postlaminectomy syndrome, not elsewhere classified; Z79.891 Long term (current) use of opiate analgesic
CPT/HCPCS: 95991

== ENCOUNTER 2024-05-29 12:59 | Day surgery (SDC) | payer BC, SELFPAY ==
[2024-05-29 13:33] VITALS: BP 134/70; PULSE 91; RESP 16; TEMP 36.3; O2SAT 97; BMI 39.3
[2024-05-29 13:41] VITALS: BP 129/66; PULSE 94; RESP 20; O2SAT 94
[2024-05-29 13:46] VITALS: BP 129/66; PULSE 94; RESP 20; O2SAT 94
--- NOTE | 2024-05-29 13:49 | EXP.PAIN.PRO ---
Procedure Date: 05/29/24 Time: 13:40 Anesthesiologist:: Yunier Frost CRNA Complications:: None Pre-procedure Diagnosis:: Degenerative disc lumbar spine multilevels. Lumbar radiculopathy. Lumbar postlaminectomy syndrome. Post-procedure Diagnosis:: Same. Indications for Procedure:: Patient is a pleasant 48-year-old male who comes our clinic today for intrathecal pain pump interrogation and refill. Patient currently being managed with morphine sulfate 10 mg/mL at a rate of 2.4720 mg/day. He is doing very well with his current settings. He is not reporting side effects or complications. Is not requesting any changes. Patient is awake alert [place] x 3. No acute distress. Flexion-extension lumbar spine somewhat guarded secondary to pain. Deep tendon reflexes upper and lower extremities normal. Motor strength upper and lower extremities normal. There is no gross sensory deficit. Gait is normal. Procedure Details:: Details of the procedure explained to the patient. The patient taken procedure room placed in the sitting position. They over the pump was cleansed using chlorhexidine as a cleansing solution. The pump was interrogated. The pump was accessed with ease using a 22-gauge inch and half needle. 4.5 mL of solution was withdrawn discarded appropriate. The pump was then filled with 20 cc of solution containing morphine sulfate 10 mg/mL. No change in pump rate. Patient tolerated procedure without difficulty. There are no complications. Plan and Disposition:: Patient was discharged without incident.
[2024-05-29 13:57] VITALS: BP 127/70; PULSE 81; RESP 16; O2SAT 92
== END 2024-05-29 13:57 | disposition home or self-care (01) ==
PROVIDERS: PCP Family Medicine; Visit Provider Nurse Anesthetist, Certified Registered
DX: M51.16 Intervertebral disc disorders with radiculopathy, lumbar region (principal); M96.1 Postlaminectomy syndrome, not elsewhere classified
CPT/HCPCS: 95991

== ENCOUNTER → 2024-07-10 09:00 | Day surgery (SDC) | payer BC, SELFPAY ==
[2024-07-10 09:12] VITALS: BP 139/76; PULSE 79; RESP 16; TEMP 36.8; O2SAT 94; BMI 39.3
[2024-07-10 09:20] VITALS: BP 146/84; PULSE 85; RESP 18; O2SAT 93
[2024-07-10 09:22] VITALS: BP 146/84; PULSE 82; RESP 18; O2SAT 93
--- NOTE | 2024-07-10 09:39 | P.PCN_ITS ---
Procedure Date: 07/10/24 Time: 09:39 Anesthesiologist:: Adrienne Rand APRN Complications:: None Pre-procedure Diagnosis:: Degenerative disc disease of lumbar spine with lumbar radiculopathy symptoms, sacroiliitis Post-procedure Diagnosis:: Same Indications for Procedure:: Patient is a pleasant 49-year-old male who presents today for intrathecal refill and reprogram and worsening pain. Today he rates his pain an 8 out of 10. He denies any new trauma or injury. He does state that he has been experiencing worsening pain in his low back and bilateral hips. He does describe it as an aching, throbbing sensation that is worse with increased activity or prolonged positioning such as standing or sitting. He states he frequently has to change positions to get comfortable. Patient does state that he would like to see about an increase on his pump as well as possible injections. Patient does state the pain is interfering with his ability perform activities of daily living such as cooking and cleaning. Patient is currently managed with intrathecal morphine 10 mg/mL with a daily dose of 2.472 mg/day. He denies any side effects from this medication. His [place] has been reviewed and is appropriate. Physical Exam: General: Alert and oriented x3, no acute distress, pleasant and cooperative Lungs: Respirations even and unlabored, symmetrical chest expansion Eyes: PERRL Musculoskeletal: Flexion and extension of lumbar [spine] somewhat guarded secondary to pain, [antalgic gait noted] point tenderness along bilateral SIs with positive bilateral Nelson's, Dany's, Gaenslen's, compression and distraction exam Neurological: Speech clear, no gross sensory deficit Skin: Lateral right pump site does have a moderate seroma present Procedure Details:: Informed consent was obtained and the risk and benefits of the procedure were explained to the patient. The patient had noninvasive monitoring placed including noninvasive blood pressure cuff and pulse oximeter. Patient's pump was interrogated. The area over the pump was cleansed with chlorhexidine as a cleansing solution. In sterile fashion we did access the seroma and removed 49 mL of solution. The 22-gauge sterile needle was removed and discarded and a new 22-gauge needle was then used to access the pump. Approximately 8.8 mls of the pump solution was removed and discarded appropriately. The pump was then refilled with 20 mL's of morphine 10 mg/mL. The needle was withdrawn and a bandage was placed over the puncture site. The infusion rate was reprogrammed and increased to morphine 2.673 mg/day. The patient tolerated well with no complication. Plan and Disposition:: Patient did have his seroma drained with 49 mL of solution removed prior to his pump refill. Patient was given an abdominal binder today and counseled to use this from time to time to help prevent seroma formation. Patient did state that at his imaging appointment where they took out the fluid first that the the RN did state that he had a significant seroma at that point and did drain some of it as well. I did pastoral counselor the patient that typically the fluid can build up from time to time and that to keep an eye on it and use his binder as needed to apply additional pressure up against the pump site to minimize accumulation. Patient acknowledges understanding and agrees with plan of care. Patient did also have extreme point tenderness along his bilateral SIs and positive bilateral Nelson's, Dany's, Gaenslen's, compression and distraction exam. I did discuss with the patient that I do believe he would benefit from bilateral SI injections. Patient did have SI injections back in September of this year with 80% relief and have lasted up until about the last month. Patient does have a longstanding history of sacroiliitis. He has gotten improved function through the injections with decreased pain. Patient has continued conservative treatment including oral medication, heat and ice, topicals, at home stretching exercise for longer than 12 weeks and in between injections. We will schedule him for bilateral SI injections under fluoroscopy. Patient will also have his next intrathecal refill and reprogram on or before August 29. Patient tolerated his procedure well however did experience headache and sweating following his procedure. We had originally increased 10 x 20% however after having the symptoms once he went back to the patient by we did decrease him back down to 10% to the current dosage of 2.673 milligrams per day. Patient stated that his only symptoms were headache back in the occipital region that would go towards his frontal sinuses. Along with some hot flashes and sweating. Patient did stay in her patient room for additional monitoring. Patient would get up and go to the restroom with no issues with ambulation. Patient did state at 1 point he was feeling better however then did vomit with only liquid present. We did discuss with the patient due to our limited availability of providing oral medications that it may be beneficial to go to ER so that his migraine and nausea could be treated. Patient agreed with this plan of care. Patient was neurologically intact. Patient left our clinic setting around 10:50 AM. We did discuss with the patient's that I do believe a lot of his symptoms were the combination of interventions performed today. Patient was not exhibiting any signs and symptoms of pocket fill. We will continue to monitor his status as he is sent to ER for evaluation. We will see the patient back in the clinic at the next intrathecal refill. Patient has been instructed to contact the clinic with any concerns before the next appointment. Dr. Aadms has reviewed this note and agrees with this plan of care. This note was dictated using voice recognition software and make contain errors or omissions. -- It Is medically necessary for this patient to continue to have their intrathecal pump refilled at regular intervals. This patient had an intrathecal pain pump implanted after meeting criteria of chronic intractable pain for greater than 3 months and failing conservative treatments. Patient has committed and been compliant to the treatment plan and all planned follow up care. Since implantation of the intrathecal pain pump, the patient has had decreased pain and been more functional. Oral medications have been reduced including intake of oral opioids. Patient continues to do well with intrathecal therapy with decrease in pain symptoms and increase in functional status. Stopping intrathecal medications can lead to life threatening withdrawal, seizures, cardiac arrest, severe pain, and possible . Pumps that are not refilled at regular intervals can be damages and cause and need for replacement. We continually titrate dose and concentration to optimize pain relief and function. We are limited in concentration for certain drugs to safely deliver medications through the pump and stay within the recommendations from the [employer] Guidelines. Depending on dose and concentration these pumps may need to be refilled sooner than 3 months as we titrate. A UDS is needed to verify patient's compliance with our office pain contract. This is ordered based off specific treatments related to chronic pain with the potential to abuse certain medications.
[2024-07-10 09:45] VITALS: BP 140/84; PULSE 82; RESP 18; O2SAT 92
--- NOTE | 2024-07-10 09:45 | PC.NURSE ---
Pt reports headache, states pain in his head began as soon as they finished reprogramming his pump. Pt was given a medication increase per provider order after refilling his pump. Pt denies hx of migraines. Pt given cold rag and Mt. dew. Pt reports has not eaten this morning, states not hungry at this time. Provider notified.
--- NOTE | 2024-07-10 09:55 | PC.NURSE ---
Pt pump decreased by 10% per provider order. Amanda Rand APRN has notified Dr. Adams of pt c/o. Will continue to monitor.
--- NOTE | 2024-07-10 10:33 | PC.NURSE ---
Pt continues to report headache, states pain 10/10. Pt also reports nausea. Cold rag on head, dark room and mt. dew given to pt. Pt states no relief. Provider has been in room to check on pt several times.
--- NOTE | 2024-07-10 11:04 | ECG_ITS ---
APPROVED REPORT Exam: Resting ECG HR:69 bpm ECG Measurements Heart Rate 69 AXES DE 160 P 60 QRSd 106 QRS 50 QT 390 T 56 QTc 410 Conclusion SINUS RHYTHM NORMAL ECG UNCONFIRMED REPORT Electronically signed by : Sandro Pozo MD 07/10/2024 17:26:46
--- NOTE | 2024-07-10 12:20 | PC.NURSE ---
1045-notified provider pt still not feeling better, I think we need to take him to the. Provider to room to check on pt. Pt had just returned from the restroom, states pain may be some better. Provider states to me that we can let him sit for a little while longer. At that time pt began vomiting. Stated to pt that he needs to be evaluated in the ER if he is willing. Pt agreeable to this, states his head is splitting . 1050-VS obtained bp 156/89, HR 59, RR 18, SaO2 94% on RA. Pt stated he needed to call his . He asked me to speak to her on the phone to tell her what is going on. Explained to take pt to ER for evaluation r/t headache and vomiting. Pt verbalized understanding states she would be coming to the hospital. Wheelchair obtained, pt assisted into wheelchair. Pt taken to ER bed 1, bedside report given to SkipRN
[2024-07-10 16:56] LABS: HIV Combo NEGATIVE (Negative)
== END | disposition home or self-care (01) ==
PROVIDERS: PCP Family Medicine; Visit Provider Nurse Practitioner Family
DX: M51.16 Intervertebral disc disorders with radiculopathy, lumbar region (principal); M46.1 Sacroiliitis, not elsewhere classified; Z73.89 Other problems related to life management difficulty
CPT/HCPCS: 62370; 87389; 93005

== ENCOUNTER 2024-07-10 11:00 | Emergency (ER) | payer BC, SELFPAY ==
[2024-07-10 11:01] VITALS: BP 153/97; PULSE 67; RESP 18; TEMP 36.7; O2SAT 95; BMI 39.3
[2024-07-10 11:30] VITALS: BP 134/82; PULSE 52; O2SAT 94
[2024-07-10 11:33] LABS: Basophils # 0.1 K/mm3 (0-0.2); Basophils % 2.2 % (0.1-2.0); Eosinophils # 0.5 K/mm3 (0.0-0.4); Eosinophils % 7.8 % (0.1-12.0); Hematocrit 48.5 % (42.0-52.0); Hemoglobin 16.4 g/dL (14.1-18.0); Lymphocytes # 2.4 K/mm3 (0.7-4.5); Lymphocytes % 35.9 % (10-50); Mean Corpuscular HGB Conc 33.8 g/dL (31.8-35.4); Mean Corpuscular Hemoglobin 27.7 pg (27.0-31.2); Mean Corpuscular Volume 82.2 fl (80-94); Mean Platelet Volume 7.4 fl (7.4-10.4); Monocytes # 0.7 K/mm3 (0.1-1.0); Monocytes % 9.9 % (1.7-9.3); Neutrophils # 2.9 K/mm3 (1.8-7.8); Neutrophils % 44.2 % (37.0-80.0); Platelet Count 194 K/mm3 (142-424); Red Cell Distribution Width 14.4 % (11.5-17.5); White Blood Count 6.6 K/mm3 (4.8-10.8)
[2024-07-10 11:34] LABS: Alanine Aminotransferase 82 U/L (12-78); Albumin Level 4.2 g/dl (3.5-5.0); Albumin/Globulin Ratio 1.7 (1.1-1.8); Alkaline Phosphatase 126 U/L (38-126); Aspartate Amino Transferase 66 U/L (17-59); Bilirubin,Total 1.2 mg/dl (0.2-1.3); Blood Urea Nitrogen 7 mg/dl (9-20); Calcium 9.4 mg/dl (8.4-10.2); Carbon Dioxide 36 mmol/L (22.0-30.0); Chloride 100 mmol/L (98-107); Creatinine Clearance Estimated 137 mL/min (50-200); Estimated Glomerular Filt Rate 64 ml/min (>60); GFR (African American) 78 ML/MIN (>60); Globulin 2.5 g/dL (1.3-3.2); Glucose 158 mg/dl (74-100); Sodium 141 mmol/L (136-145); Total Protein,Serum 6.7 g/dl (6.3-8.2)
--- NOTE | 2024-07-10 11:53 | HMH.EDGENADL ---
Discharge Plan Disposition Patient Disposition: Home, Self-Care Condition: Good Prescriptions Prescriptions: No Action amlodipine [Norvasc] 10 mg tablet 10 mg PO DAILY hydrochlorothiazide 25 mg tablet 25 mg PO DAILY omeprazole 20 mg capsule,delayed release(DR/EC) 20 mg PO DAILY cyclobenzaprine 5 mg tablet 10 mg PO HS ibuprofen-famotidine [Duexis] 800-26.6 mg tablet 1 tab PO ONCE PRN (Reason: pain) bisoprolol fumarate 10 mg tablet See Rx Instructions .ROUTE .COMPLEX Qty: 90 4RF Dose Instruction: TAKE ONE TABLET BY MOUTH EVERY DAY FOR heart rate Rx Instructions: TAKE ONE TABLET BY MOUTH EVERY DAY FOR heart rate venlafaxine 150 MG capsule,extended release 24hr 150 mg PO DAILY tamsulosin 0.4 MG capsule 0.4 mg PO BID Patient Comments: TAKE 1 CAPSULE BY MOUTH EVERY DAY losartan 50 mg tablet 100 mg PO DAILY Patient Comments: TAKE 1 TABLET BY MOUTH DAILY morphine 5 MG/ML solution 0.35 mg IT CONT Rx Instructions: medication delivered via intrathecal pain pump. actual contentration of medicaiton is 5mg/ml, total volume of pump is 20ml. atorvastatin 20 MG tablet 20 mg PO DAILY tizanidine 4 MG tablet 4 mg PO HS diclofenac sodium 75 MG tablet,delayed release (DR/EC) 75 mg PO BID baclofen 10 MG tablet 10 mg PO TID lidocaine 0.05 MG/MG adhesive patch,medicated 1 patch TP DAILY Referrals Follow up/Referrals: Provider,Referral, MD [Primary Care Provider] - See instructions Activity Restrictions/Add. Instructions Additional Instructions/Restrictions: Follow-up with your primary care physician and pain management clinic as scheduled. Continue to hydrate well by drinking plenty of fluids. Make take Tylenol and ibuprofen to help with headache symptoms. If you develop any new or worsening symptoms, or if you become concerned for your health for any reason, return to the emergency department for evaluation Clinical Impressions Clinical Impression: Headache, migraine Print Language Print Language: Czech Discharge ED Provider: Norberto Clinton Adult HPI General Chief complaint: Headache Stated complaint: headache Time Seen by Provider: 07/10/24 11:44 Mode of Arrival: Wheelchair Source of Information: Patient Limitations: No Limitations Description of Symptoms (Recalled from ER Triage Doc. by RN): PT BROUGHT VIA WC FOR SUDDEN ONSET OF HEADACHE AFTER PAIN PUMP REFILL WITH DOSAGE INCREASE. PT REPORTS SPLITTING HEADACHE REPORTS NAUSEA. DENIES VISUAL DISTURBANCE. HAS NOT EATEN TODAY. History of Present Illness HPI narrative: Lewis Yap is a 49y male with a past medical history of chronic neck and back pain with intrathecal morphine pain pump who presents to the emergency department from pain clinic due to a migraine headache. Patient states that at clinic today, they increase his morphine to 20% above when he was getting and immediately he had a headache from the back of his head extending all the way to his frontal region. Patient states that he has a history of sinus headaches but is reporting photosensitivity and phono sensitivity with this current headache. He was observed in the pain clinic for some time and they decreased his morphine pump rate to 10% above his baseline but his symptoms continued. He had 2 episodes of vomiting with this and he was sent here for treatment of a migraine headache as they are limited on what they can do in clinic. Patient denies any numbness, tingling or weakness. Related Data Home Medications ?Medication ?Instructions ?Recorded ?Confirmed tamsulosin 0.4 mg capsule 0.4 mg PO BID PROSTATE 12/19/17 05/29/24 venlafaxine 150 mg 150 mg PO DAILY Depression 12/19/17 05/29/24 capsule,extended release 24 hr atorvastatin 20 mg tablet 20 mg PO DAILY Cholesterol 08/20/18 05/29/24 amlodipine 10 mg tablet (Norvasc) 10 mg PO DAILY blood pressure 12/18/18 05/29/24 hydrochlorothiazide 25 mg tablet 25 mg PO DAILY Blood thinner 12/18/18 05/29/24 losartan 50 mg tablet 100 mg PO DAILY BLOOD PRESSURE 12/18/18 05/29/24 omeprazole 20 mg capsule,delayed 20 mg PO DAILY acid reflux 12/18/18 05/29/24 release morphine 5 mg/mL injection solution 0.35 mg IT CONT chronic pain 01/02/21 05/29/24 cyclobenzaprine 5 mg tablet 10 mg PO HS muscle spasms 07/05/21 05/29/24 ibuprofen 800 mg-famotidine 26.6 1 tab PO ONCE PRN pain 08/16/21 05/29/24 mg tablet (Duexis) diclofenac sodium 75 mg 75 mg PO BID Pain 03/19/22 05/29/24 tablet,delayed release tizanidine 4 mg tablet 4 mg PO HS . 03/19/22 05/29/24 baclofen 10 mg tablet 10 mg PO TID Pain 04/06/22 05/29/24 lidocaine 5 % topical patch 1 patch TP DAILY Pain 04/06/22 05/29/24 Previous Rx's ?Medication ?Instructions ?Recorded bisoprolol fumarate 10 mg tablet See Rx Instructions .Route 08/27/23 .COMPLEX #90 tabs Allergies Allergy/AdvReac Type Severity Reaction Status Date / Time cefaclor (From CECLOR) Allergy Unknown Verified 03/31/24 13:11 cephalexin (From KEFLEX) Allergy Unknown Verified 03/31/24 13:11 oxytetracycline (From Allergy Unknown Verified 03/31/24 13:11 TERRAMYCIN) Penicillins (PENICILLINS) Allergy Unknown Verified 03/31/24 13:11 pregabalin (From LYRICA) Allergy Unknown Verified 03/31/24 13:11 erythromycin base Allergy Verified 03/31/24 13:11 [facility] Disclaimer: The information contained in this section may have been updated after the patient was seen, as this information can be updated by other users. Medical History (Updated 07/10/24 @ 13:23 by Norberto Clinton MD) Implantable intrathecal infusion pump present Fusion of lumbar spine Post laminectomy syndrome GERD (gastroesophageal reflux disease) HLD (hyperlipidemia) HTN (hypertension) Sinus tachycardia Family History Other No significant family history Social History Smoking Status: Never smoker alcohol intake: never substance use type: denies use current occupational status: employed Travel in the last 8 weeks: None household members: spouse housing: house current occupation: [employer] current occupational exposures/hazards: No caffeine: Yes Have you lived/traveled outside US in past 30 days?: No Contact w/someone who lives/traveled outside US past 30 days?: No Exposure to someone with infectious disease in past 14 days?: No Do you have a fever (greater than 100.4 F or 38 C)?: No Have you tested positive for COVID-19: No Exposed to someone with COVID-19 in past 14 days?: No Do you have a sore throat?: No Do you have a cough?: No Do you have any weakness?: No Do you have any diarrhea?: No Are you experiencing any unusual bleeding?: No Do you have any muscle aches/pain?: No Do you have any abdominal pain?: No Are you experiencing loss of taste or smell?: No Other Medical History Have you received the Flu Vaccine for this season: No Have you received the Pneumonia Vaccine: No ROS Obtained: Yes Systems reviewed as appropriate & no additional complaints except as documented Physical Exam General General appearance: alert, in no apparent distress and obese Head Head exam: atraumatic Eye Eye exam: Present normal appearance, PERRL and EOMI ENT ENT exam: Present normal external ear exam Neck Neck exam: Present full ROM; Absent tenderness or meningismus Chest Chest inspection: Present symmetric chest wall rise Respiratory Respiratory exam: Present normal lung sounds bilaterally; Absent respiratory distress Cardiovascular Cardiovascular exam: Present regular rate and normal rhythm Abdominal Exam Abdominal exam: Present soft; Absent tenderness or guarding exam: Present deferred Extremities Exam Extremities exam: Present normal inspection Back Exam Back exam: Present normal inspection Neurological Exam Neurological exam: Present alert, oriented X3, CN II-XII intact and other (No focal neurological deficits); Absent motor sensory deficit Psychiatric Psychiatric exam: Present normal affect Skin Skin exam: Present warm and dry Medical Decision Making Medical Records Screening: Per USPSTF and CDC recommendations, given the prevalence of disease in our region, it is our hospital?s policy to screen for HIV and viral Hepatitis for all patients aged 18 and over and those with ongoing risk factors. Kosta Inquiry Pt receiving controlled substance: No Vital Signs: 07/10/24 11:01 07/10/24 11:30 07/10/24 12:00 Temperature 98.0 F Temperature Source Oral Pulse Rate 52 L 67 Pulse Rate [Apical] 67 Respiratory Rate 18 Blood Pressure 134/82 122/66 Blood Pressure [Right Arm] 153/97 H Blood Pressure Mean [Right Arm] 115 Blood Pressure Source Blood Pressure Source [Right Arm] Automatic Cuff Blood Pressure Position Blood Pressure Position [Right Arm] Sitting 02 Sat by Pulse Oximetry 95 94 L 93 L Oxygen Delivery Method Room Air Room Air Room Air 07/10/24 12:30 07/10/24 13:00 07/10/24 13:30 Temperature 97.9 F Temperature Source Oral Pulse Rate 77 85 85 Pulse Rate [Apical] Respiratory Rate 18 Blood Pressure 127/80 142/86 H 142/86 H Blood Pressure [Right Arm] Blood Pressure Mean [Right Arm] Blood Pressure Source Automatic Cuff Blood Pressure Source [Right Arm] Blood Pressure Position Sitting Blood Pressure Position [Right Arm] 02 Sat by Pulse Oximetry 98 98 Oxygen Delivery Method Room Air Room Air Room Air 07/10/24 13:30 Temperature Temperature Source Pulse Rate 86 Pulse Rate [Apical] Respiratory Rate Blood Pressure 157/93 H Blood Pressure [Right Arm] Blood Pressure Mean [Right Arm] Blood Pressure Source Blood Pressure Source [Right Arm] Blood Pressure Position Blood Pressure Position [Right Arm] 02 Sat by Pulse Oximetry 98 Oxygen Delivery Method Room Air Lab Data Lab Results 07/10/24 11:05: WBC 6.6, RBC 5.90, Hgb 16.4, Hct 48.5, MCV 82.2, MCH 27.7, MCHC 33.8, RDW 14.4, Plt Count 194, MPV 7.4, Neut % (Auto) 44.2, Lymph % (Auto) 35.9, Valley % (Auto) 9.9 H, Eos % (Auto) 7.8, Baso % (Auto) 2.2 H, Neut # (Auto) 2.9, Lymph # (Auto) 2.4, Valley # (Auto) 0.7, Eos # (Auto) 0.5 H, Baso # (Auto) 0.1, Sodium 141, Potassium 3.7, Chloride 100, Carbon Dioxide 36 H, Anion Gap 8.7, BUN 7 L, Creatinine 1.20, Estimated Creat Clear 137, Estimated GFR 64, Est GFR ( Amer) 78, Glucose 158 H, Calcium 9.4, Total Bilirubin 1.2, AST 66 H, ALT 82 H, Alkaline Phosphatase 126, Total Protein 6.7, Albumin 4.2, Globulin 2.5, Albumin/Globulin Ratio 1.7 07/10/24 11:05 07/10/24 11:05 Orders (Tests/Meds): ED MEDICATIONS Discontinued Medications Generic Name Dose Route Start Last Admin Trade Name Freq PRN Reason Stop Dose Admin Diphenhydramine HCl 25 mg 07/10/24 11:52 07/10/24 11:56 Diphenhydramine 50mg/Ml Vial IV 07/10/24 11:53 25 mg ONCE ONE Administration Droperidol 2.5 mg 07/10/24 11:52 07/10/24 11:56 Droperidol 5mg/2ml Vial IV 07/10/24 11:53 2.5 mg ONCE ONE Administration Sodium Chloride 1,000 mls @ 999 mls/hr 07/10/24 11:48 07/10/24 11:54 Sod Chlor 0.9% 1000ml Bag IV 07/10/24 12:48 999 mls/hr .Q1H1M ONE Administration Ketorolac Tromethamine 15 mg 07/10/24 11:52 07/10/24 11:57 Ketorolac 30mg/Ml Vial IV 07/10/24 11:53 15 mg ONCE ONE Administration Ondansetron HCl 4 mg 07/10/24 11:48 07/10/24 11:54 Ondansetron 4mg/2ml Vial IV 07/10/24 11:49 4 mg ONCE ONE Administration ORDERS Category Date Time Status CMP [Comprehensive Metabolic Panel] Stat Lab 07/10/24 11:05 Completed Complete Blood Count Auto Diff Stat Lab 07/10/24 11:05 Completed Hep C Ab with Reflex to RNA Stat Lab 07/10/24 11:05 Received Medical Decision Narrative: Lewis Yap is a 49-year-old male critical pain pump secondary to chronic neck and back pain, obstructive sleep apnea, sinus headaches who presents to the emergency department from pain clinic for concern for new onset headache after increasing his intrathecal pain pump dosage today at the pain clinic. Patient had associated 2 episodes of nonbilious nonbloody vomiting. Described his headache as severe and radiating from his occiput to his frontal region with associated photophobia and phonophobia. On arrival, patient is hemodynamically stable, in no acute respiratory distress, afebrile and breathing comfortably on room air. Patient is a nonfocal neurological exam patient is a nonfocal neurological exam and cranial nerves II through XII are intact. No meningismus. Differential diagnosis includes, but is not limited to: Migraine headache, medication side effect, tension headache, occipital migraine, intracranial hemorrhage, meningitis, among others. Patient's workup in the emergency department included: CBC and CMP. Patient's headache is consistent with a migraine headache given his photophobia and phonophobia without neurological deficit. CT imaging of the head was considered, however given his reassuring neurological exam and reassuring vitals, this was deferred at this time as there is low concern for intracranial hemorrhage. Patient was treated with a migraine cocktail that included 15 mg of IV Toradol, 2.5 mg of IV droperidol, 25 mg IV Benadryl as well as IV fluids Patient's lab work unremarkable and nonactionable On reassessment, patient reported complete resolution of his headache and was eager to get home. Given this, is felt that he is appropriate for discharge at this time. He was instructed to follow-up with his primary care physician and pain clinic as scheduled. Return precautions were given. All questions were answered. He demonstrated understanding and was in agreement this plan. He was then discharged from the emergency department in stable condition Critical Care Critical Care Time Critical Care Time: No
[2024-07-10] MEDS: 0.9 % SODIUM CHLORIDE 1000ML 1,000 ML 999 ML IV (11:54)
[2024-07-10] MEDS: ONDANSETRON 4MG/2ML VIAL 4 MG IV (11:54)
[2024-07-10] MEDS: diphenhydrAMINE 50MG/ML VIAL 25 MG IV (11:56)
[2024-07-10] MEDS: droPERidol 5MG/2ML VIAL 2.5 MG IV (11:56)
[2024-07-10] MEDS: KETOROLAC 30MG/ML VIAL 15 MG IV (11:57)
[2024-07-10 12:00] VITALS: BP 122/66; PULSE 67; O2SAT 93
--- NOTE | 2024-07-10 12:03 | PC.NURSE ---
I rounded on the pt, no new complaints at this time. no needs voiced. call flores in reach.
--- NOTE | 2024-07-10 12:10 | PC.NURSE ---
PT PLACED ON 2L/NC. PT WEARS C-PAP AT NIGHT.
[2024-07-10 12:12] LABS: Anion Gap 8.7 mEq/L (5-15); Potassium 3.7 mmoL/L (3.5-5.1)
[2024-07-10 12:30] VITALS: BP 127/80; PULSE 77; O2SAT 98
[2024-07-10 13:00] VITALS: BP 142/86; PULSE 85; O2SAT 98
[2024-07-10 13:30] VITALS: BP 142/86; BP 157/93; PULSE 85; PULSE 86; RESP 18; TEMP 36.6; O2SAT 98
[2024-07-11 07:33] LABS: HCV Ab Non Reactive (Non Reactive)
== END 2024-07-10 13:44 | disposition home or self-care (01) ==
PROVIDERS: Emergency Provider Student in an Organized Health Care Education/Training Program
DX: G43.909 Migraine, unspecified, not intractable, without status migrainosus (principal); R11.2 Nausea with vomiting, unspecified; H53.149 Visual discomfort, unspecified; F40.298 Other specified phobia
CPT/HCPCS: 80053; 85025; 86803; 96361; 96374; 96375; 99284; J1200; J1790; J1885; J2405; J7030

== ENCOUNTER 2024-08-04 09:48 | Day surgery (SDC) | payer BC, SELFPAY ==
[2024-08-04 10:00] VITALS: BP 139/79; PULSE 92; RESP 16; TEMP 36.3; O2SAT 95; BMI 40.6
[2024-08-04] MEDS: methylPREDNISolone ACETATE 80MG/ML VIAL 80 MG (10:03)
[2024-08-04] MEDS: LIDOCAINE 1% 5ML PF VIAL 5 ML (10:04)
[2024-08-04] MEDS: BUPIVACAINE 0.25% 10ML INJ 25 MG IJ (10:05)
[2024-08-04 10:07] VITALS: BP 139/75; PULSE 76; RESP 18; O2SAT 92
[2024-08-04 10:08] VITALS: BP 139/75; PULSE 76; RESP 18; O2SAT 92
[2024-08-04 10:13] VITALS: BP 125/73; PULSE 75; RESP 16; O2SAT 92
--- NOTE | 2024-08-04 10:19 | P.PCN_ITS ---
Procedure Date: 08/04/24 Time: 10:05 Anesthesiologist:: Yunier Frost CRNA Complications:: None Pre-procedure Diagnosis:: Bilateral sacroiliitis degenerative disc lumbar spine multilevels. Lumbar radiculopathy. Lumbar postlaminectomy syndrome. Lumbar spondylosis. Post-procedure Diagnosis:: Same. Indications for Procedure:: Patient is a very pleasant 49-year-old male who comes our clinic today for bilateral sacroiliac joint injections of cortisone and local anesthetic. Patient sees us on the regular for intrathecal pain pump management. He is currently being managed with morphine sulfate 10 mg/mL at a daily dose of 2.673 mg/day. He is doing very well in regards to his intrathecal pump therapy. He has extreme point tenderness over the bilateral sacroiliac joints. Difficulty transitioning from sitting to standing. He is having difficulty with ambulation due to intense low lumbar back pain off the midline bilaterally. He rates his pain 8/10. Procedure Details:: Procedure: Bilateral sacroiliac joint injections under fluoroscopy Informed consent was obtained and the risks and benefits of the procedure were explained to the patient.~ The patient was taken to the procedure room and noninvasive monitors were placed including a noninvasive blood pressure cuff and pulse oximeter.~ The patient was placed prone on the procedure table. Both hips were cleansed using Betadine as a cleansing solution. C-arm fluoroscopy was used to view the right sacroiliac joint.~ The skin and subcutaneous tissues were anesthetized using lidocaine 1.5% and a 25-gauge needle.~ After this, a 22-gauge spinal needle was inserted under fluoroscopic guidance into the inferior aspect of the right sacroiliac joint.~ Omnipaque dye was injected and good spread was seen throughout the joint.~ After this, approximately 5 mL of bupivacaine, 0.25% and Depo-Medrol, 40 mg was incrementally injected into the right sacroiliac joint. We then moved to the left sacroiliac joint.~ The skin and subcutaneous tissues were anesthetized using lidocaine 1.5% and a 25-gauge needle.~ After this, a 22- gauge spinal needle was inserted under fluoroscopic guidance into the inferior aspect of the left sacroiliac joint.~ Omnipaque dye was injected and good spread was seen throughout the joint. After this, approximately 5 mL of bupivacaine, 0.25% and Depo-Medrol, 40 mg was incrementally injected into the left sacroiliac joint.~ The patient tolerated the procedure well with no complications. The patient was observed in the Pain Clinic and then was discharged home neurologically intact. Plan and Disposition:: Patient was discharged without incident.
== END 2024-08-04 10:13 | disposition home or self-care (01) ==
PROVIDERS: PCP Family Medicine; Visit Provider Nurse Anesthetist, Certified Registered
DX: M46.1 Sacroiliitis, not elsewhere classified (principal); M51.16 Intervertebral disc disorders with radiculopathy, lumbar region; M96.1 Postlaminectomy syndrome, not elsewhere classified; M47.26 Other spondylosis with radiculopathy, lumbar region
CPT/HCPCS: 27096; G0260; J1010

== ENCOUNTER 2024-08-21 11:41 | Day surgery (SDC) | payer BC, SELFPAY ==
--- NOTE | 2024-08-21 11:47 | EXP.PAIN.PRO ---
Procedure Date: 08/21/24 Time: 12:15 Anesthesiologist:: Adrienne Rand APRN Complications:: None Pre-procedure Diagnosis:: Degenerative disc disease of lumbar spine with lumbar radiculopathy symptoms Post-procedure Diagnosis:: Same Indications for Procedure:: Patient is a pleasant 49-year-old male who presents today for intrathecal refill and reprogram. Today he rates his pain a 10 out of 10. He denies any new trauma or injury. Patient did have bilateral SI injections on 08/04/2024. He states these injections worked great up at least 80% and he states he feels like it is still working he states he does not have the stiffness into his hips like what he had before. He does state though that about a week ago he ended up waking up and having significant pain across to his low back that radiated down his entire legs. He states he felt like it could have been more like a herniated disc but this pain is different and severe. He states it was bad enough he went to his primary care and that they did give him some steroids, muscle relaxers and a short dose of Lortab. He states that that did help some and that he is now having the pain go just down to about his knees bilaterally. He states that it was almost like an electrical shock sensation and that is better. patient is currently managed with morphine 10 mg/mL with a daily dose of morphine 2.673 mg/day. He denies any side affects. Patient did have increased headache along with hot flashes at the end of his last appointment following his Kosta has been reviewed and is appropriate. Physical Exam: General: Alert and oriented x3, no acute distress, pleasant and cooperative Lungs: Respirations even and unlabored, symmetrical chest expansion Eyes: PERRL Musculoskeletal: Flexion and extension of lumbar [spine] somewhat guarded secondary to pain, [antalgic gait noted] Neurological: Speech clear, no gross sensory deficit Procedure Details:: Informed consent was obtained and the risk and benefits of the procedure were explained to the patient. The patient had noninvasive monitoring placed including noninvasive blood pressure cuff and pulse oximeter. Patient's pump was interrogated. The area over the pump was cleansed with chlorhexidine as a cleansing solution. In sterile fashion the pump was accessed with a 22-gauge needle. Approximately 8.5mls of the pump solution was removed and discarded appropriately. The pump was then refilled with 20 mL's of morphine 10 mg/mL. The needle was withdrawn and a bandage was placed over the puncture site. The infusion rate was reprogrammed and continued at morphine 2.673 mg/day. The patient tolerated well with no complication. Plan and Disposition:: Patient tolerated the procedure well with no complications and was discharged neurologically intact. Patient is experiencing significant pain that is different from previous. I did discuss with patient that I would like to order x-ray and MRI without contrast of his lumbar spine due to these changes. We are trying to rule out disc herniation or other significant changes that could explain the new pain. I did also discuss with the patient due to his previous issues of increased headache after one of our visits that I will not drain his seroma during today's visit. At that appointment we had refilled, drained his seroma around his pump of about 60 mL of solution as well as palpation and assessment of his SI joints. Patient was reviewed that it could have been the combination in addition to the 20% increase but could have possibly had some CSF fluid in the seroma. Patient does have a older pump in place that has been there for about 5 years. I did discuss with the patient in future we would plan on replacing the catheter and the pump itself due to the current 1 no longer in service. Patient states he would like to wait about another year due to having 2 children getting this year. We will continue to monitor his seroma formation in future. I did discuss with the patient that wearing abdominal binder or other type restrictive clothing to add additional pressure up against the pump site will help. Patient was counseled that the seroma will reabsorb but it will take additional time. Acknowledges understanding agrees with plan of care. Patient will return to clinic in 1 month following his x-ray and MRI to review findings. We will see the patient back in the clinic at the next intrathecal refill. Patient has been instructed to contact the clinic with any concerns before the next appointment. Dr. Adams has reviewed this note and agrees with this plan of care. This note was dictated using voice recognition software and make contain errors or omissions. -- It Is medically necessary for this patient to continue to have their intrathecal pump refilled at regular intervals. This patient had an intrathecal pain pump implanted after meeting criteria of chronic intractable pain for greater than 3 months and failing conservative treatments. Patient has committed and been compliant to the treatment plan and all planned follow up care. Since implantation of the intrathecal pain pump, the patient has had decreased pain and been more functional. Oral medications have been reduced including intake of oral opioids. Patient continues to do well with intrathecal therapy with decrease in pain symptoms and increase in functional status. Stopping intrathecal medications can lead to life threatening withdrawal, seizures, cardiac arrest, severe pain, and possible . Pumps that are not refilled at regular intervals can be damages and cause and need for replacement. We continually titrate dose and concentration to optimize pain relief and function. We are limited in concentration for certain drugs to safely deliver medications through the pump and stay within the recommendations from the Polyanalgesic Consensus Committee Guidelines. Depending on dose and concentration these pumps may need to be refilled sooner than 3 months as we titrate. A UDS is needed to verify patient's compliance with our office pain contract. This is ordered based off specific treatments related to chronic pain with the potential to abuse certain medications.
[2024-08-21 12:00] VITALS: BP 170/84; PULSE 111; RESP 16; TEMP 36.8; O2SAT 95; BMI 39.3
[2024-08-21 12:04] VITALS: BP 134/77; PULSE 103; RESP 18; O2SAT 93
[2024-08-21 12:06] VITALS: BP 134/77; PULSE 103; RESP 18; O2SAT 93
[2024-08-21 12:18] VITALS: BP 123/76; PULSE 98; RESP 16; O2SAT 94
== END 2024-08-21 12:18 | disposition home or self-care (01) ==
PROVIDERS: PCP Family Medicine; Visit Provider Nurse Practitioner Family
DX: M51.16 Intervertebral disc disorders with radiculopathy, lumbar region (principal)
CPT/HCPCS: 62370; 99212; G0463

== ENCOUNTER 2024-08-25 16:40 | Outpatient (CLI) | payer BC, SELFPAY ==
--- NOTE | 2024-08-25 | XR_ITS ---
PROCEDURE INFORMATION: Exam: XR Lumbosacral Spine Exam date and time: 08/25/2024 4:44 PM Age: 49 years old Clinical indication: Low back pain; Additional info: Lbp w/ ble pain. Bilat leg numbness/tingling. 2 sx's on spine- 2003 & 2018. Pain pump placed in 2019. TECHNIQUE: Imaging protocol: Radiologic exam of the lumbosacral spine. Views: 4 or 5 views. COMPARISON: MR LUMBAR SPINE WO CON 12/03/2023 1:33 PM FINDINGS: Tubes, catheters and devices: Pain pump in place. Bones/joints: Disc space narrowing L3-L4, L4-L5, and L5-S1. Soft tissues: Unremarkable. IMPRESSION: 1. Disc space narrowing L3-L4, L4-L5, and L5-S1. 2. Pain pump in place.
== END 2024-08-25 23:59 | disposition home or self-care (01) ==
LOC: RAD 16:40
PROVIDERS: PCP Family Medicine; Visit Provider Nurse Practitioner Family
DX: M54.50 Low back pain, unspecified (principal); M79.661 Pain in right lower leg; M79.662 Pain in left lower leg
CPT/HCPCS: 72110

== ENCOUNTER 2024-09-18 13:01 | Outpatient (POV) | payer BC, SELFPAY ==
[2024-09-18] VITALS (7 sets, daily range): BP systolic 114–139; BP diastolic 62–85; PULSE 78–92; RESP 16–18; TEMP 36.8–37; O2SAT 94–97; BMI 39.3
--- NOTE | 2024-09-18 13:20 | EXP.PAIN.PRO ---
Procedure Date: 09/18/24 Time: 13:20 Anesthesiologist:: Adrienne Rand APRN Complications:: None Pre-procedure Diagnosis:: Degenerative disc disease of lumbar spine with lumbar radiculopathy symptoms Post-procedure Diagnosis:: Same Indications for Procedure:: Patient is a pleasant 49-year-old male who presents today for intrathecal emptying for MRI procedure and then replacement. Patient does rate his pain today a 7 out of 10. He does state he still having the chronic pain there in his low back more prominent on the left side and goes down his left extremity. Patient is going over to radiology immediately following this procedure of emptying his pump for the MRI and then will return back to our office to have the medication refilled in his pump. His Kosta has been reviewed and is appropriate. Physical Exam: General: Alert and oriented x3, no acute distress, pleasant and cooperative Lungs: Respirations even and unlabored, symmetrical chest expansion Eyes: PERRL Musculoskeletal: Flexion and extension of lumbar [spine] somewhat guarded secondary to pain, [antalgic gait noted] Neurological: Speech clear, no gross sensory deficit Procedure Details:: Informed consent was obtained and the risk and benefits of the procedure were explained to the patient. The patient had noninvasive monitoring placed including noninvasive blood pressure cuff and pulse oximeter. Patient's pump was interrogated. The area over the pump was cleansed with chlorhexidine as a cleansing solution. In sterile fashion the pump was accessed with a 22-gauge needle. Approximately 12 mls of the pump solution was removed and discarded appropriately. The pump was then refilled with 12 mL's of morphine 10 mg/mL. The needle was withdrawn and a bandage was placed over the puncture site. The infusion rate was reprogrammed and continued at 2.673 mg/day. The patient tolerated well with no complication. Plan and Disposition:: Patient tolerated the procedure well with no complications and was discharged neurologically intact. Patient left our area around 1322 to go to radiology and did return at 1430. We did refill his pump with his intrathecal medication and reprogram the device for his next pump refill on or before October 16. We will monitor his MRI findings. Patient is seeing Dr. Cannon. patient will return to clinic on or before their next intrathecal refill date. We will see the patient back in the clinic at the next intrathecal refill. Patient has been instructed to contact the clinic with any concerns before the next appointment. Dr. Adams has reviewed this note and agrees with this plan of care. This note was dictated using voice recognition software and make contain errors or omissions. -- It Is medically necessary for this patient to continue to have their intrathecal pump refilled at regular intervals. This patient had an intrathecal pain pump implanted after meeting criteria of chronic intractable pain for greater than 3 months and failing conservative treatments. Patient has committed and been compliant to the treatment plan and all planned follow up care. Since implantation of the intrathecal pain pump, the patient has had decreased pain and been more functional. Oral medications have been reduced including intake of oral opioids. Patient continues to do well with intrathecal therapy with decrease in pain symptoms and increase in functional status. Stopping intrathecal medications can lead to life threatening withdrawal, seizures, cardiac arrest, severe pain, and possible . Pumps that are not refilled at regular intervals can be damages and cause and need for replacement. We continually titrate dose and concentration to optimize pain relief and function. We are limited in concentration for certain drugs to safely deliver medications through the pump and stay within the recommendations from the Polyanalgesic Consensus Committee Guidelines. Depending on dose and concentration these pumps may need to be refilled sooner than 3 months as we titrate. A UDS is needed to verify patient's compliance with our office pain contract. This is ordered based off specific treatments related to chronic pain with the potential to abuse certain medications.
== END 2024-09-18 14:39 | disposition home or self-care (01) ==
PROVIDERS: PCP Family Medicine; Visit Provider Nurse Practitioner Family
DX: M51.16 Intervertebral disc disorders with radiculopathy, lumbar region (principal)
CPT/HCPCS: 62370

== ENCOUNTER 2024-09-18 13:26 | Outpatient (CLI) | payer BC, SELFPAY ==
--- NOTE | 2024-09-18 13:32 | MR_ITS ---
FINAL REPORT TECHNIQUE: Multiplanar and multisequence imaging of the lumbar spine was obtained without contrast. CLINICAL HISTORY: LOW BACK PAIN. PAIN DOWN LEFT LEG. COMPARISON: 12/03/2023 FINDINGS: There is normal alignment in the sagittal plane. Vertebral body height is preserved. The spinal cord ends at the level of L1. There is normal signal intensity within the substance of the distal spinal cord. No acute bone marrow edema or pathologic marrow replacement. No acute paraspinal abnormality is identified. Artifact projected over the posterior right pelvis is likely related to a pain pump. L1-2: There is no focal disc herniation, central canal stenosis or neuroforaminal narrowing. L2-3: There is no focal disc herniation, central canal stenosis or neuroforaminal narrowing. L3-4: There is an annular disc bulge, degenerative endplate changes and facet osteoarthropathy. There is mild central canal stenosis and moderate bilateral neuroforaminal narrowing. L4-5: There is a left paracentral protrusion superimposed upon and annular disc bulge, degenerative endplate changes and facet osteoarthropathy. This protrusion has increased in size and now causes severe central canal stenosis. There is mild right and severe left neuroforaminal narrowing. L5-S1: There is an annular disc bulge, degenerative endplate changes and facet osteoarthropathy. There are postoperative changes from left laminectomy superimposed on a small central protrusion. This is unchanged from the prior exam. There is mild central canal stenosis with moderate to severe bilateral neuroforaminal narrowing which is unchanged. IMPRESSION: Interval increase in size of left paracentral protrusion at L4-5 which now causes severe central canal stenosis. Degenerative disc disease and additional findings which appear similar to the prior exam. Reviewed, Interpreted and Dictated by Tatyana Merlos MD Transcribed by Ness Dudley Authenticated and [facility]
== END 2024-09-18 23:59 | disposition home or self-care (01) ==
LOC: RAD 13:26
PROVIDERS: PCP Family Medicine; Visit Provider Nurse Practitioner Family
DX: M51.362 Other intervertebral disc degeneration, lumbar region with discogenic back pain and lower extremity pain (principal)
CPT/HCPCS: 72148

== ENCOUNTER 2024-09-30 10:10 | Outpatient (POV) | payer BC, SELFPAY ==
[2024-09-30 10:26] VITALS: BP 134/77; PULSE 108; RESP 14; O2SAT 95; BMI 40.6
--- NOTE | 2024-09-30 10:45 | A.OFFVIS_ITS ---
[facility] Disclaimer: The information contained in this section may have been updated after the patient was seen, as this information can be updated by other users. Medical History Implantable intrathecal infusion pump present Fusion of lumbar spine Post laminectomy syndrome GERD (gastroesophageal reflux disease) HLD (hyperlipidemia) HTN (hypertension) Sinus tachycardia Family History Other No significant family history Social History Smoking Status: Never smoker alcohol intake: never substance use type: denies use current occupational status: other Travel in the last 8 weeks: None household members: spouse housing: house current occupation: [employer] current occupational exposures/hazards: No caffeine: Yes PM Subjective & Objective Subjective Subjective:: Patient is a pleasant 49-year-old male who presents today for follow-up following his neurosurgeon consult. Today he rates his pain a 9 out of 10. Patient states he continues to have the chronic pain throughout his back that does radiate down into his legs. With numbness and tingling. He does state the pain is interfering with his ability to perform activities of daily living such as cooking and cleaning. Patient does state that the surgeon did state that he could do surgical intervention however it would be lengthy and difficult due to previous scarring as well as having the intrathecal pump catheter in the same location. Patient does state that the surgeon was recommending conservative treatment including injections. Patient also states that he is still having s ome increased pressure with headaches and dizziness and that he did recently go to his doctor and they are saying that he has got fluid in his ears and did get put on some medication. Patient does have a intrathecal pump with morphine 10 mg/mL with a daily dose of 2.673 mg/day. He denies any side effects from this medication. His Kosta has been reviewed and is appropriate. Review of Systems: General: No recent weight changes, no fever, no sleep disturbances Respiratory: No cough, no shortness of air, no recurring pulmonary infections Cardiovascular/peripheral vascular: No chest pain, no palpitations, no edema, no shortness of breath Gastrointestinal: No new onset incontinence, normal bowel movements reported Genitourinary: No new onset incontinence Musculoskeletal: Low back pain, bilateral leg pain Psychiatric: [Normal mood/affect] Neurological: [Denies weakness in extremities], [denies balance issues] Pain at rest (0-10 scale): 9 Objective Objective:: Physical Exam: General: Alert and oriented x3, no acute distress, pleasant and cooperative Lungs: Respirations even and unlabored, symmetrical chest expansion Eyes: PERRL Musculoskeletal: Flexion and extension of lumbar [spine] somewhat guarded secondary to pain, [antalgic gait noted] positive leg raise Neurological: Speech clear, no gross sensory deficit Has patient had previous pain injection?: No Conservative treatment options previously tried: Home exercise plan Length of treatment: Longer than 12-week Meds Home Medications and Allergies Home Medications ?Medication ?Instructions ?Recorded ?Confirmed ?Type tamsulosin 0.4 mg capsule 0.4 mg PO BID PROSTATE 12/19/17 09/30/24 History venlafaxine 150 mg 150 mg PO DAILY Depression 12/19/17 09/30/24 History capsule,extended release 24 hr atorvastatin 20 mg tablet 20 mg PO DAILY Cholesterol 08/20/18 09/30/24 History amlodipine 10 mg tablet (Norvasc) 10 mg PO DAILY blood pressure 12/18/18 09/30/24 History hydrochlorothiazide 25 mg tablet 25 mg PO DAILY Blood thinner 12/18/18 09/30/24 History losartan 50 mg tablet 100 mg PO DAILY BLOOD PRESSURE 12/18/18 09/30/24 History omeprazole 20 mg capsule,delayed 20 mg PO DAILY acid reflux 12/18/18 09/30/24 History release morphine 5 mg/mL injection solution 0.35 mg IT CONT chronic pain 01/02/21 09/30/24 History cyclobenzaprine 5 mg tablet 10 mg PO HS muscle spasms 07/05/21 09/30/24 History ibuprofen 800 mg-famotidine 26.6 1 tab PO ONCE PRN pain 08/16/21 09/30/24 History mg tablet (Duexis) diclofenac sodium 75 mg 75 mg PO BID Pain 03/19/22 09/30/24 History tablet,delayed release tizanidine 4 mg tablet 4 mg PO HS . 03/19/22 09/30/24 History baclofen 10 mg tablet 10 mg PO TID Pain 04/06/22 09/30/24 History lidocaine 5 % topical patch 1 patch TP DAILY Pain 04/06/22 09/30/24 History bisoprolol fumarate 10 mg tablet See Rx Instructions .Route 09/08/24 09/30/24 Rx .COMPLEX #30 tabs New Prescriptions to Start Prescriptions: Allergies Allergy/AdvReac Type Severity Reaction Status Date / Time cefaclor (From CECLOR) Allergy Unknown Verified 03/31/24 13:11 cephalexin (From KEFLEX) Allergy Unknown Verified 03/31/24 13:11 oxytetracycline (From Allergy Unknown Verified 03/31/24 13:11 TERRAMYCIN) Penicillins (PENICILLINS) Allergy Unknown Verified 03/31/24 13:11 pregabalin (From LYRICA) Allergy Unknown Verified 03/31/24 13:11 erythromycin base Allergy Verified 03/31/24 13:11 Assessment and Plan *Assessment and plan (1) Degenerative joint disease (DJD) of lumbar spine: Status: Chronic Category: Medical Code(s): M47.816 - Spondylosis without myelopathy or radiculopathy, lumbar region (2) Lumbar radiculopathy: Status: Chronic Category: Medical Code(s): M54.16 - Radiculopathy, lumbar region (3) Spinal stenosis of lumbar region: Status: Chronic Qualifiers: Neurogenic claudication status: with neurogenic claudication Qualified Code(s): M48.062 - Spinal stenosis, lumbar region with neurogenic claudication Category: Medical Code(s): M48.061 - Spinal stenosis, lumbar region without neurogenic claudication (4) Facet arthropathy, lumbar: Status: Chronic Category: Medical Code(s): M47.816 - Spondylosis without myelopathy or radiculopathy, lumbar region Plan I did review over with the patient regarding his most up-to-date lumbar MRI that did show severe narrowing at the L4-L5 level. I did discuss with the patient t hat I do believe he would benefit from a lumbar epidural. Patient is experiencing worsening pain in his low back with numbness and tingling into his lower extremities. Patient did have limited range of motion of her lumbar spine with a positive leg raise. I did discuss with patient that I do believe they would benefit from a lumbar epidural steroid injection. Risk and benefits were discussed with patient and the patient would like to proceed forward with this plan of care. Patient is not on any blood thinner. Patient has tried and failed conservative therapy including continued at home stretching exercise for longer than 12 weeks between injections. Patient had his last lumbar epidural of L5-S1 back in October 2023 that did provide more than 50% improvements. Patient has had chronic longstanding back pain for longer than 1 year. Patient did have at least 3 months relief with his last epidural. We will schedule the patient for an LESI L4-L5 under fluoroscopy. Patient has been instructed to contact the clinic with any concerns before the next appointment. Dr. Adams has reviewed this note and agrees with this plan of care. This note was dictated using voice recognition software and make contain errors or omissions. All injections are used with Lidocaine, Bupivacaine and Depo Medrol. Occasionally urine drug screen is needed to verify patient's compliance with our office pain contract. This is ordered based off specific treatments related to chronic pain with the potential to abuse certain medications.
== END 2024-09-30 23:59 | disposition home or self-care (01) ==
LOC: SC.PAIN 10:11
PROVIDERS: PCP Family Medicine; Visit Provider Nurse Practitioner Family
DX: M47.26 Other spondylosis with radiculopathy, lumbar region (principal); M48.062 Spinal stenosis, lumbar region with neurogenic claudication; Z73.89 Other problems related to life management difficulty
CPT/HCPCS: 99212; G0463

== ENCOUNTER 2024-10-09 10:55 | Day surgery (SDC) | payer BC, SELFPAY ==
--- NOTE | 2024-10-09 10:59 | EXP.PAIN.PRO ---
Procedure Date: 10/09/24 Time: 11:49 Anesthesiologist:: Adrienne Rand APRN Complications:: None Pre-procedure Diagnosis:: Degenerative disc disease of cervical and lumbar spine with cervical and lumbar radiculopathy symptoms, chronic pain syndrome Post-procedure Diagnosis:: Same Indications for Procedure:: Patient is a pleasant 49-year-old male who presents today for intrathecal refill and reprogram. He rates his pain today a 5 out of 10. He denies any new trauma or injury. He states overall he is doing well. Patient is scheduled for an injection coming up and whether or not he has good relief will depend whether or not he proceeds forward with surgical intervention. Patient is currently managed with morphine 10 mg/mL with a daily dose of 2.673 mg/day. He denies any side effects. His Kosta has been reviewed and is appropriate. Physical Exam: General: Alert and oriented x3, no acute distress, pleasant and cooperative Lungs: Respirations even and unlabored, symmetrical chest expansion Eyes: PERRL Musculoskeletal: Flexion and extension of lumbar [spine] somewhat guarded secondary to pain, [antalgic gait noted] Neurological: Speech clear, no gross sensory deficit Procedure Details:: Informed consent was obtained and the risk and benefits of the procedure were explained to the patient. The patient had noninvasive monitoring placed including noninvasive blood pressure cuff and pulse oximeter. Patient's pump was interrogated. The area over the pump was cleansed with chlorhexidine as a cleansing solution. In sterile fashion the pump was accessed with a 22-gauge needle. Approximately 6 mls of the pump solution was removed and discarded appropriately. The pump was then refilled with 20 mL's of morphine 10 mg/mL. The needle was withdrawn and a bandage was placed over the puncture site. The infusion rate was reprogrammed and continued at its current dosage. The patient tolerated well with no complication. Plan and Disposition:: Patient tolerated the procedure well with no complications and was discharged neurologically intact. Patient will return to clinic on or before their next intrathecal refill date. We will see the patient back in the clinic at the next intrathecal refill. Patient has been instructed to contact the clinic with any concerns before the next appointment. Dr. Adams has reviewed this note and agrees with this plan of care. This note was dictated using voice recognition software and make contain errors or omissions. -- It Is medically necessary for this patient to continue to have their intrathecal pump refilled at regular intervals. This patient had an intrathecal pain pump implanted after meeting criteria of chronic intractable pain for greater than 3 months and failing conservative treatments. Patient has committed and been compliant to the treatment plan and all planned follow up care. Since implantation of the intrathecal pain pump, the patient has had decreased pain and been more functional. Oral medications have been reduced including intake of oral opioids. Patient continues to do well with intrathecal therapy with decrease in pain symptoms and increase in functional status. Stopping intrathecal medications can lead to life threatening withdrawal, seizures, cardiac arrest, severe pain, and possible . Pumps that are not refilled at regular intervals can be damages and cause and need for replacement. We continually titrate dose and concentration to optimize pain relief and function. We are limited in concentration for certain drugs to safely deliver medications through the pump and stay within the recommendations from the Polyanalgesic Consensus Committee Guidelines. Depending on dose and concentration these pumps may need to be refilled sooner than 3 months as we titrate. A UDS is needed to verify patient's compliance with our office pain contract. This is ordered based off specific treatments related to chronic pain with the potential to abuse certain medications.
[2024-10-09 11:10] VITALS: BP 116/90; PULSE 84; RESP 16; TEMP 36.6; O2SAT 96; BMI 40.0
[2024-10-09 11:41] VITALS: BP 120/71; PULSE 82; RESP 18; O2SAT 95
[2024-10-09 11:42] VITALS: BP 120/71; PULSE 82; RESP 18; O2SAT 95
[2024-10-09 11:57] VITALS: BP 132/75; PULSE 52; RESP 16; O2SAT 92
== END 2024-10-09 11:57 | disposition home or self-care (01) ==
PROVIDERS: PCP Family Medicine; Visit Provider Nurse Practitioner Family
DX: G89.4 Chronic pain syndrome (principal); M51.16 Intervertebral disc disorders with radiculopathy, lumbar region; M50.10 Cervical disc disorder with radiculopathy, unspecified cervical region; R00.2 Palpitations; K21.9 Gastro-esophageal reflux disease without esophagitis; E78.2 Mixed hyperlipidemia; R94.31 Abnormal electrocardiogram [ECG] [EKG]; I10 Essential (primary) hypertension; R07.89 Other chest pain; R06.09 Other forms of dyspnea
CPT/HCPCS: 62370; 93270

== ENCOUNTER 2024-10-19 10:59 | Outpatient (CLI) | payer BC, SELFPAY ==
--- NOTE | 2024-10-19 11:03 | CA_ITS ---
APPROVED REPORT EXAM: Comprehensive 2D, Doppler, and color-flow Echocardiogram Attractions Associate: Amelia Damon CRT Ht: 6 ft 0 in Wt: 297lbs BSA: 2.52 BP: 140/79 mmHg Indications: Chest Pain, Shortness of Breath, Palpitations, Hyperlipidemia, Hypertension/HDD 2D Dimensions LA Volume 33.40 mL LA Volume Index 12.90 mL/m2 (M/F) 16-34 M-Mode Dimensions RVDd 2.29 cm (0.9-2.6) LA Diam 3.67 cm (1.9-4.0) LVDd 5.82 cm (3.5-5.7) LVDs 3.19 cm (3.5-5.7) IVSd 1.32 cm (0.6-1.1) PWd 1.61 cm (0.6-1.1) EF (Teich) 75.80% FS 45.20% EDV (Teich) 167.90 mL TAPSE 2.32 (<1.7) ESV (Teich) 40.60 mL LV Diastology E Decel Time 177 (160-240 msec) E/A Ratio 1.12 MED A' 8.60 cm/s LAT A' 10.10 cm/s Aortic Valve AO Peak GR. 8.70 mmHg Mitral Valve MV A Velocity 84.0 (40-130 cm/s) E/A Ratio 1.12 Pulmonary Valve PV Peak Velocity 106.0 (50-150 cm/s) Tricuspid Valve TR P. Velocity 184.00 cm/s RAP Estimate 10.00 mmHg RVSP 23.60 mmHg Left Ventricle The left ventricle is normal size. The left ventricular systolic function is normal. The left ventricular ejection fraction is within the normal range. There is increased LV wall thickness. There is normal LV segmental wall motion. The left ventricular diastolic function is normal. LVEF is 55%. Right Ventricle Right ventricle is mildly dilated. The right ventricular systolic function is normal. Atria The left atrium size is normal. The right atrium size is normal. The interatrial septum is not well-visualized. Aortic Valve Aortic valve opens well. There is no aortic valvular stenosis. No aortic regurgitation is present. Mitral Valve The mitral valve is normal in structure. No evidence of mitral valve stenosis. Trace mitral regurgitation. Tricuspid Valve Tricuspid valve is grossly normal in structure and function. Trace tricuspid regurgitation. There is insufficient TR jet to estimate RVSP. Pulmonic Valve The pulmonary valve is normal in structure. Trace pulmonic regurgitation. Great Vessels The aortic root is normal in size. The IVC is not well-visualized. Pericardium There is no pericardial effusion. Other Information Study Quality: Technically Difficult Conclusion Technically difficult study due to poor acoustic windows. Normal biventricular systolic function. Mild RV dilation. No significant valvular stenosis or regurgitation. Electronically signed by : Deepa Melo MD 10/27/2024 22:32:14
--- NOTE | 2024-10-19 11:48 | CT_ITS ---
APPROVED REPORT Summer Law Clerk: CLINICAL INDICATION Chest Pain TECHNIQUE Image Acquisition: A 128 slice MDCT scanner ([employer] View) was used for data acquisition. A noncontrast coronary calcium scan was performed. A CT attenuation threshold of 130 Hounsfield units (HU) was used for the detection of calcium in contiguous voxels of 1 sq mm in area to be counted as individual lesions. Bolus tracking in the ascending aorta with a threshold of 180 HU was performed. Immediately afterwards, ECG synchronized cardiac CT was then performed from the cardiac base to apex using retrospective gating with ECG tube current modulation. A total of 85 mL of Isovue 370 mg/mL contrast medium was administered at 5 mL/sec followed by a saline flush using a biphasic injection protocol. A tube voltage of 120 KVp was used. The patient received the following medications prior to the cardiac CT. 100 mg of oral metoprolol 15 mg of oral ivabradine The average heart rate at the time of acquisition was 68 bpm and regular. Image Reconstruction Transaxial images were reconstructed at 0.67 mm slide thickness. Data was reviewed interactively on an advanced workstation capable of 2 and 3-dimensional displays in all conventional reconstruction formats, including multiplanar reformations, maximum intensity projections, curved multiplanar reformations, and volume rendered reconstructions. When applicable, selected routine images describing the relevant coronary anatomy and pathology were saved and sent to PACS. Complications None Technical Quality Overall image quality was good. Coronary artery opacification was adequate. Total DLP (Dose-Length Product) is 1861.1 mGy-cm. The reported value represents the total of one or more individual components during the CT acquisition of this date and at this time, and as such, the same value may appear in more than one CT report depending on the interpreting/reporting physicians. COMPARISON None FINDINGS CT Coronary Calcium Scoring LMA (Left Main Artery) = 0 LAD (Left Anterior Descending) = 0 LCX (Left Coronary Circumflex) = 0 RCA (Right Coronary Artery) = 0 Total Calcium Score = 0 using the AJ-130 method. The interpretation of the calcium heart score is based on the following continuum*: 0 = no calcified plaque detected (risk of coronary artery disease is very low ??? less than 5%) 1-10 = calcium detected in extremely minimal levels (risk of coronary diseases is still low ??? less than 10%) 11-100 = mild levels of plaque detected with certainty (mild or minimal narrowing of heart arteries is likely) 101-400 = definite,at least moderate levels of plaque detected (relatively high risk of a heart attack within 3-5 years) >401-999 = extensive levels of plaque detected (high risk of heart attack, high levels of vascular disease are present, high likelihood of at least one significant coronary narrowing) *The calcium heart score quantifies the burden of coronary calcification/plaque in the coronary arteries. The calcium heart score is not able to evaluate the presence or burden of non-calcified (i.e. soft) plaque. There is no identifiable calcification in the aortic valve, mitral annulus or mitral valve, pericardium, or myocardium. Coronary CT Angiography The coronary arterial system is left dominant. Quantitative Stenosis Grading: Left Main (LM): The left main originates normally from the left sinus of Valsalva. The LM bifurcates into the left anterior descending artery and left circumflex artery. The LM is patent with no evidence of atherosclerosis. Left Anterior Descending (LAD) and Diagonal Branches: The LAD gives off 3 diagonal branch(es). The LAD and its branches are patent with no evidence of atherosclerosis. There is no evidence of LAD-myocardial bridge. Left Circumflex (LCX) and Obtuse Marginals (OM): The LCX gives off 1 Obtuse Marginal (OM) branch(es). The LCX and its branches are patent with no evidence of atherosclerosis. Right Coronary Artery (RCA): The RCA originates normally from the right sinus of Valsalva. The RCA and its branches are patent with no evidence of atherosclerosis. Non-Coronary Cardiac Findings: Analysis of the left ventricular (LV) structure and function was performed after 3-D reconstruction of the LV from axial images, with user-corrected automatic contouring for assessment of LV volumes and user-defined reconstruction from oblique planes for measurement of 3-D cardiac structure and function. -The left ventricle systolic function is normal. -There is no left atrial appendage filling defect. Two right pulmonary veins and two left pulmonary veins drain normally into the left atrium. -No pericardial thickening or calcification. -Central and branch pulmonary arteries in the [id number] are unremarkable. -Thoracic aorta within the visualized thoracic aortic-branches in the [id number] is unremarkable. Extracardiac Structures No significant extra-cardiac findings. Note, however, that this study is focused on the cardiac findings. IMPRESSION -Absence of coronary calcification with an Agatston score = 0 using the AJ-130 method. -No evidence of significant flow-limiting atherosclerosis of the coronary arteries. -CAD-RADS 0. Management recommendations per ACC/AHA guidelines*, as clinically appropriate. *Recommendations: CAD RADS 0: Reassurance. Consider non-atherosclerotic causes of chest pain. CAD RADS 1: Consider non-atherosclerotic causes of chest pain. Consider preventive therapy and risk factor modification. CAD RADS 2: Consider non-atherosclerotic causes of chest pain. Consider preventive therapy and risk factor modification, particularly for patients with nonobstructive plaque in multiple segments. CAD RADS 3: Consider further functional testing. Consider symptom-guided anti-ischemic and preventive pharmacotherapy as well as risk factor modification per published guideline statements. CAD RADS 4A: Consider further functional testing or invasive coronary angiography with revascularization per published guideline statements. Consider symptom-guided anti-ischemic and preventive pharmacotherapy as well as risk factor modification per published guideline statements. CAD RADS 4B: Invasive coronary angiography recommended with revascularization per published guideline statements. Consider symptom-guided anti-ischemic and preventive pharmacotherapy as well as risk factor modification per published guideline statements. CAD RADS 5: Consider invasive angiography and/or viability assessment with revascularization per published guideline statements. Consider symptom-guided anti-ischemic and preventive pharmacotherapy as well as risk factor modification per published guideline statements. CRITICAL RESULT None COMMUNICATION Per this written report The coronary and cardiac findings of this CCTA were reviewed, reported, and signed by Marcus Melo MD (Meat Team Lead) Conclusion Electronically signed by : Deepa Melo MD 10/22/2024 15:53:46
[2024-10-19 12:01] VITALS: BMI 40.2
[2024-10-19] MEDS: IVABRADINE HCL 7.5MG TABLET PO (12:09)
[2024-10-19] MEDS: METOPROLOL TARTRATE 50MG TABLET PO ×2 (12:09→12:51)
[2024-10-19 12:16] VITALS: BP 126/76; PULSE 90; RESP 16; O2SAT 93
[2024-10-19 12:16] LABS: Blood Urea Nitrogen 13 mg/dl (9-20); Carbon Dioxide 34 mmol/L (22.0-30.0); Creatinine Clearance Estimated 168 mL/min (50-200); Estimated Glomerular Filt Rate 79 ml/min (>60); GFR (African American) 96 ML/MIN (>60); Glucose 169 mg/dl (74-100)
[2024-10-19 12:18] LABS: Anion Gap 6.5 mEq/L (5-15); Chloride 102 mmol/L (98-107); Potassium 3.5 mmoL/L (3.5-5.1); Sodium 139 mmol/L (136-145)
[2024-10-19 13:30] VITALS: BP 128/83; PULSE 74; RESP 16; O2SAT 92
[2024-10-19 13:33] VITALS: BP 121/73; PULSE 70; RESP 16; O2SAT 94
[2024-10-19 13:36] VITALS: BP 120/70; PULSE 72; RESP 16; O2SAT 94
[2024-10-19] MEDS: IOPAMIDOL-370 (76%);100ML BOTTLE 85 ML IV (13:37)
[2024-10-19] MEDS: 0.9 % SODIUM CHLORIDE 50 ML VIAL IV (13:37)
[2024-10-19] MEDS: SODIUM CHLORIDE 0.9% 10ML SYR (RAD ONLY) 10 ML IV (13:37)
[2024-10-19 13:42] VITALS: BP 127/79; PULSE 72; RESP 16; O2SAT 93
== END 2024-10-19 13:49 | disposition home or self-care (01) ==
LOC: RT 11:00 → RAD 11:58
PROVIDERS: PCP Family Medicine; Visit Provider Physician Assistant
DX: R94.31 Abnormal electrocardiogram [ECG] [EKG] (principal); R07.89 Other chest pain; E78.2 Mixed hyperlipidemia; I10 Essential (primary) hypertension; R00.2 Palpitations; R06.09 Other forms of dyspnea
CPT/HCPCS: 75574; 80048; 93306; Q9967

== ENCOUNTER 2024-10-20 13:49 | Day surgery (SDC) | payer BC, SELFPAY ==
[2024-10-20 14:00] VITALS: BP 154/95; PULSE 85; RESP 16; TEMP 36.6; O2SAT 100; BMI 40.0
[2024-10-20 14:23] VITALS: BP 132/89; PULSE 86; RESP 16; O2SAT 94
--- NOTE | 2024-10-20 14:23 | P.PCN_ITS ---
Procedure Date: 10/20/24 Time: 14:00 Anesthesiologist:: Yunier Frost CRNA Complications:: None Pre-procedure Diagnosis:: Degenerative disc disease lumbar spine multilevels. Lumbar radiculopathy. Lumbar postlaminectomy syndrome. Lumbar disc bulge L4-5. Post-procedure Diagnosis:: Same. Indications for Procedure:: Patient is a very pleasant 49-year-old male that comes our clinic today for lumbar epidural steroid injection at the L4-5 level. Patient describes low lumbar back pain as well as right hip and leg radicular symptoms. He rates his pain 8/10 Procedure Details:: Procedure: Lumbar epidural steroid injection under fluoroscopy Informed consent was obtained and the risks and benefits of the procedure were explained to the patient. The patient was taken to the procedure room and noninvasive monitors placed, including noninvasive blood pressure cuff and pulse oximeter. The back was viewed using C-arm Fluoroscopy and prepped using Chloraprep as a cleansing solution and the L4-L5 interspace was palpated. Skin and subcutaneous tissues were anesthetized using lidocaine 1.5% and a 25-gauge needle. After this, an 18-gauge Touhy epidural needle was placed into the L4-L5 interspace and advanced using fluoroscopic guidance and loss of resistance to air until the epidural space was encountered. After confirmation of needle placement in the epidural space, with dye, a solution containing normal saline, 3 mL and Depo-Medrol 80 mg were incrementally injected into the lumbar epidural space. The patient tolerated the procedure well with no complications. The patient was observed in the Pain Clinic and then discharged home ne urologically intact. Plan and Disposition:: Patient was discharged without incident.
[2024-10-20 15:11] VITALS: BP 141/86; PULSE 86; RESP 18; O2SAT 92
[2024-10-20] MEDS: methylPREDNISolone ACETATE 80MG/ML VIAL 80 MG (15:11)
[2024-10-20 15:12] VITALS: BP 141/86; PULSE 86; RESP 18; O2SAT 92
== END 2024-10-20 14:23 | disposition home or self-care (01) ==
PROVIDERS: PCP Family Medicine; Visit Provider Nurse Anesthetist, Certified Registered
DX: M51.16 Intervertebral disc disorders with radiculopathy, lumbar region (principal); M96.1 Postlaminectomy syndrome, not elsewhere classified
CPT/HCPCS: 62323; J1010

== ENCOUNTER 2024-11-03 21:04 | Emergency (ER) | payer BC, SELFPAY ==
[2024-11-03 21:09] VITALS: BP 154/85; PULSE 84; RESP 18; TEMP 36.8; O2SAT 96; BMI 40.6
[2024-11-03 21:22] VITALS: BP 151/93; PULSE 80; O2SAT 95
[2024-11-03 21:30] VITALS: BP 150/92; PULSE 79; O2SAT 96
--- NOTE | 2024-11-03 21:53 | ED_ITS ---
Discharge Plan Disposition Patient Disposition: Home, Self-Care Chief Complaint: Back Pain/Injury Prescriptions Prescriptions: No Action cyclobenzaprine 5 mg tablet 10 mg PO HS ibuprofen-famotidine [Duexis] 800-26.6 mg tablet 1 tab PO ONCE PRN (Reason: pain) celecoxib 200 mg capsule 200 mg PO DAILY Patient Comments: TAKE ONE CAPSULE BY MOUTH EVERY DAY --TAKE WITH FOOD-- pantoprazole 40 mg tablet,delayed release (DR/EC) 40 mg PO ONCE Patient Comments: TAKE ONE TABLET BY MOUTH EVERY DAY bisoprolol fumarate 10 mg tablet See Rx Instructions .ROUTE .COMPLEX Qty: 30 0RF Dose Instruction: TAKE ONE TABLET BY MOUTH EVERY DAY FOR heart rate Rx Instructions: TAKE ONE TABLET BY MOUTH EVERY DAY FOR heart rate losartan 100 mg tablet 100 mg PO DAILY Qty: 90 3RF atorvastatin 20 mg tablet 20 mg PO DAILY Qty: 90 3RF hydrochlorothiazide 25 mg tablet 25 mg PO DAILY Qty: 90 3RF venlafaxine 150 MG capsule,extended release 24hr 150 mg PO DAILY tamsulosin 0.4 MG capsule 0.4 mg PO BID Patient Comments: TAKE 1 CAPSULE BY MOUTH EVERY DAY morphine 5 MG/ML solution 0.35 mg intrathecal CONT Rx Instructions: medication delivered via intrathecal pain pump. actual contentration of medicaiton is 5mg/ml, total volume of pump is 20ml. prednisone 20 mg tablet 20 mg PO BID Qty: 10 0RF tizanidine 4 MG tablet 4 mg PO HS diclofenac sodium 75 MG tablet,delayed release (DR/EC) 75 mg PO BID baclofen 10 MG tablet 10 mg PO TID Referrals Follow up/Referrals: Magdaleno Laureano MD [Primary Care Provider] - See instructions Activity Restrictions/Add. Instructions Additional Instructions/Restrictions: At this time it was felt you are safe to be discharged home. If new or worsening symptoms please do not hesitate to return the emergency department. Clinical Impressions Clinical Impression: Back pain Instructions Patient Instructions: DI for Low Back Pain Print Language Print Language: Urdu Discharge ED Provider: Jim Oneil General Adult HPI <SALENA Lopez - Last Filed: 11/03/24 22:05> General Chief complaint: Back Pain/Injury Stated complaint: muscle spasms,severe back pain Time Seen by Provider: 11/03/24 21:32 Mode of Arrival: Ambulatory Source of Information: Patient Description of Symptoms (Recalled from ER Triage Doc. by RN): Patient to ED in wheelchair with complaints of left sided back pain that radiates down left leg causing numbness and tingling in left foot. Patient states that he has a known herniated disc in L4/L5. Patient seeing Dr. Adams for pain management. Pain pump placed 2019. Pt reports that pain is severe 10/10 pain. Patient reports that now it is hard to have bowel movements due to issues. History of Present Illness HPI narrative: 49-year-old male presents to the emergency department with lower lumbar spine pain, and left-sided radicular pain that is anterior laterally down the left leg with associated numbness and tingling at times, denies any saddle anesthesia, denies any urinary bladder or bowel dysfunction, denies any upper or lower extremity weakness, patient has significant history of lumbar spine disease, has had prior discectomy and laminectomy at [facility] in 2003 at L5-S1, another laminectomy and discectomy at L4-L5 in 2013 at [facility], in 2019 he had intrathecal pain pump with morphine placed, he is currently seeing pain management and received epidural lumbar spinal injection at the level of his current disc disease which is a severe paracentral disc protrusion at L4-L5 causing severe spinal stenosis centrally and foraminal stenosis on the left, this is noted on his most recent MRI of the lumbar spine performed in August 2024. Of note, patient has follow-up with pain management in the upcoming weeks, patient states that he is has a 1 day history of pain and spasms also admits to some spasms in his abdomen , he believes he is dehydrated , as patient and family had what sound like a GI illness over the weekend with nausea and vomiting this is improved, no overt abdominal pain, the spasms come in waves and correspond with his back spasms, patient denies any fever chills chest pain shortness of breath, denies any constipation diarrhea urinary type symptomatology, patient is taking all his medications at home today which include the morphine pain pump, muscle relaxers as well as 7.5 mg p.o. [place] with little to no relief of his symptomatology and spasms. Other past medical history consistent with degenerative disc disease lumbar spine, GERD, hypertension, hyperlipidemia, patient non-smoker denies any alcohol or drug use no IV drug use. Initial triage vitals unremarkable. Onset (ago): day(s) Related Data Home Medications ?Medication ?Instructions ?Recorded ?Confirmed tamsulosin 0.4 mg capsule 0.4 mg PO BID PROSTATE 12/19/17 10/20/24 venlafaxine 150 mg 150 mg PO DAILY Depression 12/19/17 10/20/24 capsule,extended release 24 hr morphine 5 mg/mL injection solution 0.35 mg intrathecal CONT chronic 01/02/21 10/20/24 pain cyclobenzaprine 5 mg tablet 10 mg PO HS muscle spasms 07/05/21 10/20/24 ibuprofen 800 mg-famotidine 26.6 1 tab PO ONCE PRN pain 08/16/21 10/20/24 mg tablet (Duexis) diclofenac sodium 75 mg 75 mg PO BID Pain 03/19/22 10/20/24 tablet,delayed release tizanidine 4 mg tablet 4 mg PO HS . 03/19/22 10/20/24 baclofen 10 mg tablet 10 mg PO TID Pain 04/06/22 10/20/24 celecoxib 200 mg capsule 200 mg PO DAILY 10/05/24 10/20/24 pantoprazole 40 mg tablet,delayed 40 mg PO ONCE 10/05/24 10/20/24 release Previous Rx's ?Medication ?Instructions ?Recorded atorvastatin 20 mg tablet 20 mg PO DAILY Cholesterol #90 tabs 10/05/24 bisoprolol fumarate 10 mg tablet See Rx Instructions .Route 10/05/24 .COMPLEX #30 tabs hydrochlorothiazide 25 mg tablet 25 mg PO DAILY Blood thinner #90 10/05/24 tabs losartan 100 mg tablet 100 mg PO DAILY #90 tabs 10/05/24 prednisone 20 mg tablet 20 mg PO BID #10 tabs 10/12/24 Allergies Allergy/AdvReac Type Severity Reaction Status Date / Time cefaclor (From CECLOR) Allergy Unknown Unknown Verified 10/19/24 11:48 allergy reaction cephalexin (From KEFLEX) Allergy Unknown Unknown Verified 10/19/24 11:48 allergy reaction oxytetracycline (From Allergy Unknown Unknown Verified 10/19/24 11:48 TERRAMYCIN) allergy reaction Penicillins (PENICILLINS) Allergy Unknown Unknown Verified 10/19/24 11:48 allergy reaction erythromycin base Allergy Unknown Verified 10/19/24 11:48 allergy reaction PFSH <SALENA Lopez - Last Filed: 11/03/24 22:05> [facility] Disclaimer: The information contained in this section may have been updated after the patient was seen, as this information can be updated by other users. Medical History Implantable intrathecal infusion pump present Fusion of lumbar spine Post laminectomy syndrome GERD (gastroesophageal reflux disease) HLD (hyperlipidemia) HTN (hypertension) Sinus tachycardia Family History Other No significant family history Social History Smoking Status: Never smoker alcohol intake: never substance use type: denies use current occupational status: other Travel in the last 8 weeks: None household members: spouse housing: house current occupation: [employer] current occupational exposures/hazards: No caffeine: Yes Have you lived/traveled outside US in past 30 days?: No Contact w/someone who lives/traveled outside US past 30 days?: No Exposure to someone with infectious disease in past 14 days?: No Do you have a fever (greater than 100.4 F or 38 C)?: No Have you tested positive for COVID-19: No Exposed to someone with COVID-19 in past 14 days?: No Do you have a sore throat?: No Do you have a cough?: No Do you have any weakness?: No Do you have any diarrhea?: No Are you experiencing any unusual bleeding?: No Do you have any muscle aches/pain?: No Do you have any abdominal pain?: No Are you experiencing loss of taste or smell?: No Other Medical History Have you received the Flu Vaccine for this season: No Have you received the Pneumonia Vaccine: No <SALENA Lopez - Last Filed: 11/03/24 22:05> ROS Obtained: Yes All systems reviewed & no additional complaints except as documented Physical Exam <SALENA Lopez - Last Filed: 11/03/24 22:05> General General appearance: alert and in no apparent distress Head Head exam: atraumatic and normocephalic Eye Eye exam: Present PERRL and EOMI ENT ENT exam: Present mucous membranes moist Neck Neck exam: Present normal inspection Chest Chest inspection: Present normal inspection and symmetric chest wall rise Respiratory Respiratory exam: Present normal lung sounds bilaterally; Absent respiratory distress, wheezes or stridor Cardiovascular Cardiovascular exam: Present regular rate and normal rhythm Abdominal Exam Abdominal exam: Present soft; Absent tenderness, guarding, rebound or rigidity Extremities Exam Extremities exam: Present normal inspection Back Exam Back exam: Present paraspinal tenderness, straight leg raise (L) and other (There is paraspinal tenderness to palpation on the left, that is mild, there is a positive straight leg test on the left, negative on the right,) Neurological Exam Neurological exam: Present alert, oriented X3 and other (Patient has 5 out of 5 strength in bilateral lower and upper extremities, no gross sensation deficit.) Psychiatric Psychiatric exam: Present normal affect Skin Skin exam: Present warm and dry Medical Decision Making <SALENA Lopez - Last Filed: 11/03/24 22:05> Medical Records Medical records reviewed: Yes I reviewed the patient's medical records. Screening: Per USPSTF and CDC recommendations, given the prevalence of disease in our region, it is our hospital?s policy to screen for HIV and viral Hepatitis for all patients aged 18 and over and those with ongoing risk factors. [place] Inquiry Pt receiving controlled substance: No [place] was queried for this patient: No Vital Signs: 11/03/24 21:09 11/03/24 21:22 11/03/24 21:30 Temperature 98.3 F Temperature Source Oral Pulse Rate 80 79 Pulse Rate [Left] 84 Respiratory Rate 18 Blood Pressure 151/93 H 150/92 H Blood Pressure [Right Arm] 154/85 H Blood Pressure Mean [Right Arm] 108 Blood Pressure Source [Right Arm] Automatic Cuff Blood Pressure Position [Right Arm] Sitting 02 Sat by Pulse Oximetry 96 95 96 Oxygen Delivery Method Room Air Room Air Room Air Lab Data Lab results reviewed: Yes I reviewed the patient's lab results. Lab Results 11/03/24 21:35: WBC 8.2, RBC 5.93, Hgb 16.6, Hct 50.5, MCV 85.2, MCH 28.0, MCHC 32.9, RDW 13.3, Plt Count 234, MPV 9.2, Neut % (Auto) 67.8, Lymph % (Auto) 20.4, [place] % (Auto) 9.0, Eos % (Auto) 2.5, Baso % (Auto) 0.1, Neut # (Auto) 5.5, Lymph # (Auto) 1.7, [place] # (Auto) 0.7, Eos # (Auto) 0.2, Baso # (Auto) 0.0, Sodium 136, Potassium 4.2, Chloride 94 L, Carbon Dioxide 33 H, Anion Gap 13.2, BUN 16, Creatinine 1.20, Estimated Creat Clear 142, Estimated GFR 64, Est GFR ( Amer) 78, Glucose 133 H, Calcium 9.4, Total Bilirubin 2.0 H, AST 38, ALT 48, Alkaline Phosphatase 117, Total Protein 7.8, Albumin 4.5, Globulin 3.3 H, Albumin/Globulin Ratio 1.4 11/03/24 21:35 11/03/24 21:35 Orders (Tests/Meds): ED MEDICATIONS Generic Name Dose Route Start Last Admin Trade Name Freq PRN Reason Stop Dose Admin Lactated Ringer's 1,000 mls @ 999 mls/hr 11/03/24 22:02 11/03/24 22:22 Lactated Ringer's 1000 Ml Bag IV 11/03/24 23:02 999 mls/hr .Q1H1M ONE Administration Discontinued Medications Generic Name Dose Route Start Last Admin Trade Name Freq PRN Reason Stop Dose Admin Diazepam 5 mg 11/03/24 21:51 11/03/24 22:15 Diazepam 10mg/2ml Syringe IV 11/03/24 21:52 5 mg ONCE ONE Administration Ketorolac Tromethamine 15 mg 11/03/24 21:49 11/03/24 22:14 Ketorolac 30mg/Ml Vial IV 11/03/24 21:50 15 mg ONCE ONE Administration ORDERS Category Date Time Status Complete Blood Count Auto Diff Stat Lab 11/03/24 21:35 Completed Comprehensive Metabolic Panel Stat Lab 11/03/24 21:35 Completed Medical Decision Narrative: 49-year-old male presents emergency department with lower lumbar spine pain and muscle spasm/cramping, differential diagnoses include but not limited to degenerative disc disease of lumbar spine, facet arthropathy, acute lumbar sacral strain, acute sciatica, herniated nucleus pulposus, electrolyte disturbance. Obtain basic laboratory studies, and give 5 mg IV Valium for muscle spasm as well as 50 mg IV Toradol for anti-inflammatory effect, 1 L LR IV the patient is concerned with dehydration. CBC unremarkable Discussed patient case with attending physician Dr.Oneil at shift change, he will be assuming the patient's care/workup, disposition is pending relief from medications and laboratory studies. <Jmi Oneil MD - Last Filed: 11/03/24 23:13> Vital Signs: 11/03/24 21:09 11/03/24 21:22 11/03/24 21:30 Temperature 98.3 F Temperature Source Oral Pulse Rate 80 79 Pulse Rate [Left] 84 Respiratory Rate 18 Blood Pressure 151/93 H 150/92 H Blood Pressure [Right Arm] 154/85 H Blood Pressure Mean [Right Arm] 108 Blood Pressure Source [Right Arm] Automatic Cuff Blood Pressure Position [Right Arm] Sitting 02 Sat by Pulse Oximetry 96 95 96 Oxygen Delivery Method Room Air Room Air Room Air Lab Data Lab Results 11/03/24 21:35: WBC 8.2, RBC 5.93, Hgb 16.6, Hct 50.5, MCV 85.2, MCH 28.0, MCHC 32.9, RDW 13.3, Plt Count 234, MPV 9.2, Neut % (Auto) 67.8, Lymph % (Auto) 20.4, [place] % (Auto) 9.0, Eos % (Auto) 2.5, Baso % (Auto) 0.1, Neut # (Auto) 5.5, Lymph # (Auto) 1.7, [place] # (Auto) 0.7, Eos # (Auto) 0.2, Baso # (Auto) 0.0, Sodium 136, Potassium 4.2, Chloride 94 L, Carbon Dioxide 33 H, Anion Gap 13.2, BUN 16, Creatinine 1.20, Estimated Creat Clear 142, Estimated GFR 64, Est GFR ( Amer) 78, Glucose 133 H, Calcium 9.4, Total Bilirubin 2.0 H, AST 38, ALT 48, Alkaline Phosphatase 117, Total Protein 7.8, Albumin 4.5, Globulin 3.3 H, Albumin/Globulin Ratio 1.4 Orders (Tests/Meds): ED MEDICATIONS Generic Name Dose Route Start Last Admin Trade Name Freq PRN Reason Stop Dose Admin Lactated Ringer's 1,000 mls @ 999 mls/hr 11/03/24 22:02 11/03/24 22:22 Lactated Ringer's 1000 Ml Bag IV 11/03/24 23:02 999 mls/hr .Q1H1M ONE Administration Discontinued Medications Generic Name Dose Route Start Last Admin Trade Name Carter PRN Reason Stop Dose Admin Diazepam 5 mg 11/03/24 21:51 11/03/24 22:15 Diazepam 10mg/2ml Syringe IV 11/03/24 21:52 5 mg ONCE ONE Administration Ketorolac Tromethamine 15 mg 11/03/24 21:49 11/03/24 22:14 Ketorolac 30mg/Ml Vial IV 11/03/24 21:50 15 mg ONCE ONE Administration ORDERS Category Date Time Status Complete Blood Count Auto Diff Stat Lab 11/03/24 21:35 Completed Comprehensive Metabolic Panel Stat Lab 11/03/24 21:35 Completed Medical Decision Narrative: 49-year-old male presents emergency department with lower lumbar spine pain and muscle spasm/cramping, differential diagnoses include but not limited to degenerative disc disease of lumbar spine, facet arthropathy, acute lumbar sacral strain, acute sciatica, herniated nucleus pulposus, electrolyte disturbance. Obtain basic laboratory studies, and give 5 mg IV Valium for muscle spasm as well as 50 mg IV Toradol for anti-inflammatory effect, 1 L LR IV the patient is concerned with dehydration. CBC unremarkable Discussed patient case with attending physician at shift change, he will be assuming the patient's care/workup, disposition is pending relief from medications and laboratory studies. Jim Oneil: Upon assumption of care patient was hemodynamically stable. Patient had some resolving pain. Given that he has chronic back pain I do not expect total resolution. He has appropriate follow-up. Hematologic labs reviewed by me and are nonactionable. Given this patient is appropriate for discharge at this time and will follow-up with his pain and spine doctor on an outpatient basis. Critical Care <SALENA Lopez - Last Filed: 11/03/24 22:05> Critical Care Time Critical Care Time: No
[2024-11-03 21:55] LABS: Basophils % 0.1 % (0.1-2.0); Eosinophils # 0.2 K/mm3 (0.0-0.4); Eosinophils % 2.5 % (0.1-12.0); Hematocrit 50.5 % (42.0-52.0); Hemoglobin 16.6 g/dL (14.1-18.0); Lymphocytes # 1.7 K/mm3 (0.7-4.5); Lymphocytes % 20.4 % (10-50); Mean Corpuscular HGB Conc 32.9 g/dL (31.8-35.4); Mean Corpuscular Volume 85.2 fl (80-94); Mean Platelet Volume 9.2 fl (7.4-10.4); Monocytes # 0.7 K/mm3 (0.1-1.0); Neutrophils # 5.5 K/mm3 (1.8-7.8); Neutrophils % 67.8 % (37.0-80.0); Platelet Count 234 K/mm3 (142-424); Red Blood Count 5.93 M/mm3 (4.60-6.20); Red Cell Distribution Width 13.3 % (11.5-17.5); White Blood Count 8.2 K/mm3 (4.8-10.8)
[2024-11-03 22:04] LABS: Alanine Aminotransferase 48 U/L (12-78); Albumin Level 4.5 g/dl (3.5-5.0); Albumin/Globulin Ratio 1.4 (1.1-1.8); Alkaline Phosphatase 117 U/L (38-126); Anion Gap 13.2 mEq/L (5-15); Aspartate Amino Transferase 38 U/L (17-59); Blood Urea Nitrogen 16 mg/dl (9-20); Calcium 9.4 mg/dl (8.4-10.2); Carbon Dioxide 33 mmol/L (22.0-30.0); Chloride 94 mmol/L (98-107); Creatinine Clearance Estimated 142 mL/min (50-200); Estimated Glomerular Filt Rate 64 ml/min (>60); GFR (African American) 78 ML/MIN (>60); Globulin 3.3 g/dL (1.3-3.2); Glucose 133 mg/dl (74-100); Potassium 4.2 mmoL/L (3.5-5.1); Sodium 136 mmol/L (136-145); Total Protein,Serum 7.8 g/dl (6.3-8.2)
[2024-11-03] MEDS: KETOROLAC 30MG/ML VIAL 15 MG IV (22:14)
[2024-11-03] MEDS: diazePAM 10MG/2ML SYRINGE 5 MG IV (22:15)
[2024-11-03] MEDS: LACTATED RINGERS 1000ML 1,000 ML 999 ML IV (22:22)
[2024-11-03 23:22] VITALS: BP 124/82; PULSE 96; RESP 18; TEMP 36.7
--- NOTE | 2024-11-03 23:24 | PC.NURSE ---
IV discontinued. catheter tip intact. bleeding controlled.
== END 2024-11-03 23:25 | disposition home or self-care (01) ==
PROVIDERS: Physician Assistant; Emergency Provider Emergency Medicine; PCP Family Medicine
DX: M54.50 Low back pain, unspecified (principal); M79.605 Pain in left leg; R20.2 Paresthesia of skin
CPT/HCPCS: 80053; 85025; 96361; 96374; 96375; 99283; J1885; J3360; J7120

== ENCOUNTER 2024-11-05 10:36 | Outpatient (POV) | payer BC, SELFPAY ==
--- NOTE | 2024-11-05 10:38 | A.OFFVIS_ITS ---
[facility] Disclaimer: The information contained in this section may have been updated after the patient was seen, as this information can be updated by other users. Medical History Implantable intrathecal infusion pump present Fusion of lumbar spine Post laminectomy syndrome GERD (gastroesophageal reflux disease) HLD (hyperlipidemia) HTN (hypertension) Sinus tachycardia Family History Other No significant family history Social History Smoking Status: Never smoker alcohol intake: never substance use type: denies use current occupational status: other Travel in the last 8 weeks: None household members: spouse housing: house current occupation: [employer] current occupational exposures/hazards: No caffeine: Yes Have you lived/traveled outside US in past 30 days?: No Contact w/someone who lives/traveled outside US past 30 days?: No Exposure to someone with infectious disease in past 14 days?: No Do you have a fever (greater than 100.4 F or 38 C)?: No Have you tested positive for COVID-19: No Exposed to someone with COVID-19 in past 14 days?: No Do you have a sore throat?: No Do you have a cough?: No Do you have any weakness?: No Do you have any diarrhea?: No Are you experiencing any unusual bleeding?: No Do you have any muscle aches/pain?: No Do you have any abdominal pain?: No Are you experiencing loss of taste or smell?: No PM Subjective & Objective Subjective Subjective:: Patient is a pleasant 49-year-old male who presents today for follow-up of lumbar epidural steroid injection L4-L5 on 10/20/2024. Today he rates his pain a Review of Systems: General: No recent weight changes, no fever, no sleep disturbances Respiratory: No cough, no shortness of air, no recurring pulmonary infections Cardiovascular/peripheral vascular: No chest pain, no palpitations, no edema, no shortness of breath Gastrointestinal: No new onset incontinence, normal bowel movements reported Genitourinary: No new onset incontinence Musculoskeletal: [] Psychiatric: [Normal mood/affect] Neurological: [Denies weakness in extremities], [denies balance issues] Objective Objective:: Physical Exam: General: Alert and oriented x3, no acute distress, pleasant and cooperative Lungs: Respirations even and unlabored, symmetrical chest expansion Eyes: PERRL Musculoskeletal: Flexion and extension of [] [spine] somewhat guarded secondary to pain, [antalgic gait noted] Neurological: Speech clear, no gross sensory deficit Has patient had previous pain injection?: Yes Conservative treatment options previously tried: Home exercise plan Length of treatment: Longer than 12 weeks Meds Home Medications and Allergies Home Medications ?Medication ?Instructions ?Recorded ?Confirmed ?Type tamsulosin 0.4 mg capsule 0.4 mg PO BID PROSTATE 12/19/17 10/20/24 History venlafaxine 150 mg 150 mg PO DAILY Depression 12/19/17 10/20/24 History capsule,extended release 24 hr morphine 5 mg/mL injection solution 0.35 mg intrathecal CONT chronic 01/02/21 10/20/24 History pain cyclobenzaprine 5 mg tablet 10 mg PO HS muscle spasms 07/05/21 10/20/24 History ibuprofen 800 mg-famotidine 26.6 1 tab PO ONCE PRN pain 08/16/21 10/20/24 History mg tablet (Duexis) diclofenac sodium 75 mg 75 mg PO BID Pain 03/19/22 10/20/24 History tablet,delayed release tizanidine 4 mg tablet 4 mg PO HS . 03/19/22 10/20/24 History baclofen 10 mg tablet 10 mg PO TID Pain 04/06/22 10/20/24 History atorvastatin 20 mg tablet 20 mg PO DAILY Cholesterol #90 tabs 10/05/24 10/20/24 Rx bisoprolol fumarate 10 mg tablet See Rx Instructions .Route 10/05/24 10/20/24 Rx .COMPLEX #30 tabs celecoxib 200 mg capsule 200 mg PO DAILY 10/05/24 10/20/24 History hydrochlorothiazide 25 mg tablet 25 mg PO DAILY Blood thinner #90 10/05/24 10/20/24 Rx tabs losartan 100 mg tablet 100 mg PO DAILY #90 tabs 10/05/24 10/20/24 Rx pantoprazole 40 mg tablet,delayed 40 mg PO ONCE 10/05/24 10/20/24 History release prednisone 20 mg tablet 20 mg PO BID #10 tabs 10/12/24 10/20/24 Rx New Prescriptions to Start Prescriptions: Allergies Allergy/AdvReac Type Severity Reaction Status Date / Time cefaclor (From CECLOR) Allergy Unknown Unknown Verified 10/19/24 11:48 allergy reaction cephalexin (From KEFLEX) Allergy Unknown Unknown Verified 10/19/24 11:48 allergy reaction oxytetracycline (From Allergy Unknown Unknown Verified 10/19/24 11:48 TERRAMYCIN) allergy reaction Penicillins (PENICILLINS) Allergy Unknown Unknown Verified 10/19/24 11:48 allergy reaction erythromycin base Allergy Unknown Verified 10/19/24 11:48 allergy reaction Assessment and Plan *Assessment and plan (1) Low back pain: Status: Acute Qualifiers: Back pain laterality: midline Chronicity: chronic Sciatica presence: without sciatica Qualified Code(s): M54.50 - Low back pain, unspecified; G89.29 - Other chronic pain Category: Medical Code(s): M54.50 - Low back pain, unspecified (2) Degenerative joint disease (DJD) of lumbar spine: Status: Chronic Category: Medical Code(s): M47.816 - Spondylosis without myelopathy or radiculopathy, lumbar region (3) Lumbar radiculopathy: Status: Chronic Category: Medical Code(s): M54.16 - Radiculopathy, lumbar region (4) Spinal stenosis of lumbar region: Status: Chronic Qualifiers: Neurogenic claudication status: with neurogenic claudication Qualified Code(s): M48.062 - Spinal stenosis, lumbar region with neurogenic claudication Category: Medical Code(s): M48.061 - Spinal stenosis, lumbar region without neurogenic claudication Plan Patient has been instructed to contact the clinic with any concerns before the next appointment. Dr. Adams has reviewed this note and agrees with this plan of care. This note was dictated using voice recognition software and make contain errors or omissions. -- It Is medically necessary for this patient to continue to have their intrathecal pump refilled at regular intervals. This patient had an intrathecal pain pump implanted after meeting criteria of chronic intractable pain for greater than 3 months and failing conservative treatments. Patient has committed and been compliant to the treatment plan and all planned follow up care. Since implantation of the intrathecal pain pump, the patient has had decreased pain and been more functional. Oral medications have been reduced including intake of oral opioids. Patient continues to do well with intrathecal therapy with decrease in pain symptoms and increase in functional status. Stopping intrathe ada medications can lead to life threatening withdrawal, seizures, cardiac arrest, severe pain, and possible . Pumps that are not refilled at regular intervals can be damages and cause and need for replacement. We continually titrate dose and concentration to optimize pain relief and function. We are limited in concentration for certain drugs to safely deliver medications through the pump and stay within the recommendations from the Polyanalgesic Consensus Committee Guidelines. Depending on dose and concentration these pumps may need to be refilled sooner than 3 months as we titrate. A UDS is needed to verify patient's compliance with our office pain contract. This is ordered based off specific treatments related to chronic pain with the potential to abuse certain medications.
[2024-11-05 10:57] VITALS: BP 137/81; PULSE 88; RESP 14; O2SAT 96; BMI 40.6
--- NOTE | 2024-11-05 11:31 | EXP.PAIN.PRO ---
Procedure Date: 11/05/24 Time: 11:23 Anesthesiologist:: Adrienne Rand APRN Complications:: None Pre-procedure Diagnosis:: Degenerative disc disease of lumbar spine with lumbar radiculopathy symptoms, spinal stenosis, chronic pain syndrome Post-procedure Diagnosis:: Same Indications for Procedure:: Patient is a pleasant 49-year-old male who presents today for follow-up of his lumbar epidural steroid injection L4-L5 on 10/20/2024. He states that it did seem to help some primarily some of the numbness going down his left leg however he ended up having worsening pain that radiated down the back of his left leg in the front of his lower veliz/calf area that was so severe that he ended up going to the ER for evaluation. Patient states that he can barely walk or move due to the worsening pain. He states that it is constant and is interfering with everyday activities of daily living. Patient states that he is seeing [facility] and that they were wanting to see if the injection provided significant relief before deciding to proceed forward with surgery. He states he did end up calling this office and they are not able to even get him in for evaluation until the middle of November. Patient states he is just miserable and knows that he cannot work due to the worsening pain symptoms. He does state that he would be interested in any help we may be able to provide whether or not with medications and/or additional injections. He is currently managed with morphine 10 mg/mL with a daily dose of 2.673 mg/day. He denies any side effects. His Kosta has been reviewed and is appropriate. Physical Exam: General: Alert and oriented x3, no acute distress, pleasant and cooperative Lungs: Respirations even and unlabored, symmetrical chest expansion Eyes: PERRL Musculoskeletal: Flexion and extension of lumbar [spine] somewhat guarded secondary to pain, [antalgic gait noted] positive Kemps test Neurological: Speech clear, no gross sensory deficit Procedure Details:: Informed consent was obtained and the risk and benefits of the procedure were explained to the patient. Patient did have noninvasive monitoring was placed including noninvasive blood pressure cuff and pulse oximeter. Patient's pump was interrogated and was reprogrammed to morphine 2.81 mg/day. The patient tolerated the procedure well with no complications. Plan and Disposition:: Patient tolerated the procedure well with no complications and was discharged neurologically intact. I did discuss with the patient due to his worsening symptoms that would highly recommend to continue to call the neurosurgeons office to see about additional cancellations in order to get in before November. I will send in methocarbamol 750 mg twice daily with a 2-week supply of this medication and also start him on gabapentin 100 mg 3 times daily. Patient was counseled to start these medications at different times in case he were to have side effects. Patient does state that he has had gabapentin in the past and had no issues. I did discuss with patient that this will be a starting dosage to see how he does and see if it does help some of his overall leg symptoms. Patient does have symptoms consistent with the lumbar medial branch block injections however his biggest complaint is the lumbar radicular symptoms into the left leg. I did discuss with the patient in future we may be able to repeat and try another epidural injection and that I would recommend we try the L5-S1 level due to where his radicular symptoms are coming down into the legs however that would be not available until around December. We will continue to monitor how he does. Patient will return to clinic in 2 weeks for reevaluation of symptoms and plan of care. We will see the patient back in the clinic at the next intrathecal refill. Patient has been instructed to contact the clinic with any concerns before the next appointment. Dr. Adams has reviewed this note and agrees with this plan of care. This note was dictated using voice recognition software and make contain errors or omissions. -- It Is medically necessary for this patient to continue to have their intrathecal pump refilled at regular intervals. This patient had an intrathecal pain pump implanted after meeting criteria of chronic intractable pain for greater than 3 months and failing conservative treatments. Patient has committed and been compliant to the treatment plan and all planned follow up care. Since implantation of the intrathecal pain pump, the patient has had decreased pain and been more functional. Oral medications have been reduced including intake of oral opioids. Patient continues to do well with intrathecal therapy with decrease in pain symptoms and increase in functional status. Stopping intrathecal medications can lead to life threatening withdrawal, seizures, cardiac arrest, severe pain, and possible . Pumps that are not refilled at regular intervals can be damages and cause and need for replacement. We continually titrate dose and concentration to optimize pain relief and function. We are limited in concentration for certain drugs to safely deliver medications through the pump and stay within the recommendations from the Polyanalges[employer] Consensus Committee Guidelines. Depending on dose and concentration these pumps may need to be refilled sooner than 3 months as we titrate. A UDS is needed to verify patient's compliance with our office pain contract. This is ordered based off specific treatments related to chronic pain with the potential to abuse certain medications.
== END 2024-11-05 23:59 | disposition home or self-care (01) ==
PROVIDERS: PCP Family Medicine; Visit Provider Nurse Practitioner Family
DX: M51.16 Intervertebral disc disorders with radiculopathy, lumbar region (principal); G89.4 Chronic pain syndrome; M48.062 Spinal stenosis, lumbar region with neurogenic claudication
CPT/HCPCS: 62368; 99212; 99213; G0463

== ENCOUNTER 2024-11-18 11:23 | Outpatient (POV) | payer BC, SELFPAY ==
--- NOTE | 2024-11-18 11:35 | EXP.PAIN.PRO ---
Procedure Date: 11/18/24 Time: 11:35 Anesthesiologist:: Adrienne Rand APRN Complications:: None Pre-procedure Diagnosis:: Degenerative disc disease of lumbar spine with lumbar radiculopathy symptoms Post-procedure Diagnosis:: Same Indications for Procedure:: Patient is a pleasant 49-year-old male who presents today for 2-week follow-up. Today he rates his pain a 6 out of 10. From our last visit we did not send in prescriptions of methocarbamol 750 mg twice a day and gabapentin 100 mg 3 times a day. Patient does state today that these did help. He does feel like the gabapentin could still use an adjustment. Patient does currently have a intrathecal pain pump of morphine 10 mg/mL with a daily dose of 2.81 mg/day. He is also requesting adjustment on his pump. Patient states he is still has the neurosurgeon appointment there at coming up in December. He does make mention today however that his insurance will change January 26 and he did previously have surgery with Dr. Dominguez and was very pleased with his work. Patient states that he is questioning whether or not just to wait a little bit longer in order to get into see Dr. Dominguez for additional evaluation. His Kosta has been reviewed and is appropriate. Physical Exam: General: Alert and oriented x3, no acute distress, pleasant and cooperative Lungs: Respirations even and unlabored, symmetrical chest expansion Eyes: PERRL Musculoskeletal: Flexion and extension of lumbar [spine] somewhat guarded secondary to pain, [antalgic gait noted] Neurological: Speech clear, no gross sensory deficit Procedure Details:: Informed consent was obtained and the risk and benefits of the procedure were explained to the patient. Patient did have noninvasive monitoring was placed including noninvasive blood pressure cuff and pulse oximeter. Patient's pump was interrogated and was reprogrammed to morphine 3.091 mg/day. The patient tolerated the procedure well with no complications. Plan and Disposition:: Patient tolerated the procedure well with no complications and was discharged neurologically intact. I will increase his gabapentin to 200 mg 3 times daily and provide a 2-week supply of this medication. Patient will also be refilled on the methocarbamol with a 1 month supply. Patient is scheduled for his next pump refill in about 2 weeks. At that visit I did discuss with him that if he still needs additional adjustment on the gabapentin that we would change it to 300 mg 3 times a day. Patient agrees with this plan of care. Patient was counseled to call us with any concerns or any increased pain between now and his next visit. Patient will return to clinic on or before their next intrathecal refill date. We will see the patient back in the clinic at the next intrathecal refill. Patient has been instructed to contact the clinic with any concerns before the next appointment. Dr. Adams has reviewed this note and agrees with this plan of care. This note was dictated using voice recognition software and make contain errors or omissions. -- It Is medically necessary for this patient to continue to have their intrathecal pump refilled at regular intervals. This patient had an intrathecal pain pump implanted after meeting criteria of chronic intractable pain for greater than 3 months and failing conservative treatments. Patient has committed and been compliant to the treatment plan and all planned follow up care. Since implantation of the intrathecal pain pump, the patient has had decreased pain and been more functional. Oral medications have been reduced including intake of oral opioids. Patient continues to do well with intrathecal therapy with decrease in pain symptoms and increase in functional status. Stopping intrathecal medications can lead to life threatening withdrawal, seizures, cardiac arrest, severe pain, and possible . Pumps that are not refilled at regular intervals can be damages and cause and need for replacement. We continually titrate dose and concentration to optimize pain relief and function. We are limited in concentration for certain drugs to safely deliver medications through the pump and stay within the recommendations from the Polyanalgesic Consensus Committee Guidelines. Depending on dose and concentration these pumps may need to be refilled sooner than 3 months as we titrate. A UDS is needed to verify patient's compliance with our office pain contract. This is ordered based off specific treatments related to chronic pain with the potential to abuse certain medications.
[2024-11-18 11:49] VITALS: BP 133/69; PULSE 76; RESP 14; O2SAT 96; BMI 40.6
== END 2024-11-18 23:59 | disposition home or self-care (01) ==
PROVIDERS: PCP Family Medicine; Visit Provider Nurse Practitioner Family
DX: M51.16 Intervertebral disc disorders with radiculopathy, lumbar region (principal)
CPT/HCPCS: 62368; 99212; 99213; G0463

== ENCOUNTER 2024-11-27 10:17 | Day surgery (SDC) | payer BC, SELFPAY ==
[2024-11-27 10:15] VITALS: BP 131/77; PULSE 78; RESP 18; O2SAT 91; BMI 40.2
--- NOTE | 2024-11-27 10:20 | EXP.HP ---
History of Present Illness *Admission Date: 11/27/24 *Reason for visit:: Intrathecal refill; DDD *History of present illness: Degenerative disc disease [facility] Disclaimer: The information contained in this section may have been updated after the patient was seen, as this information can be updated by other users. Medical History Implantable intrathecal infusion pump present Fusion of lumbar spine Post laminectomy syndrome GERD (gastroesophageal reflux disease) HLD (hyperlipidemia) HTN (hypertension) Sinus tachycardia Family History Other No significant family history Social History Smoking Status: Never smoker alcohol intake: never substance use type: denies use current occupational status: other Travel in the last 8 weeks?: None household members: spouse housing: house current occupation: [employer] current occupational exposures/hazards: No caffeine: Yes Have you lived/traveled outside [place] in past 30 days?: No Contact w/someone who lives/traveled outside US past 30 days?: No Exposure to someone with infectious disease in past 14 days?: No Do you have a fever (greater than 100.4 F or 38 C)?: No Have you tested positive for COVID-19?: No Exposed to someone with COVID-19 in past 14 days?: No Do you have a sore throat?: No Do you have a cough?: No Do you have any weakness?: No Do you have any diarrhea?: No Are you experiencing any unusual bleeding?: No Do you have any muscle aches/pain?: No Do you have any abdominal pain?: No Are you experiencing loss of taste or smell?: No Other Medical History Have you received the Flu Vaccine for this season: No Have you received the Pneumonia Vaccine: No Review of Systems Review of Systems Review of systems:: pertinent systems reviewed and negative unless documented below Review of systems (narrative): Review of Systems: General: No recent weight changes, no fever, no sleep disturbances Respiratory: No cough, no shortness of air, no recurring pulmonary infections Cardiovascular/peripheral vascular: No chest pain, no palpitations, no edema, no shortness of breath Gastrointestinal: No new onset incontinence, normal bowel movements reported Genitourinary: No new onset incontinence Musculoskeletal: Chronic low back pain Psychiatric: [Normal mood/affect] Neurological: [Denies weakness in extremities], [denies balance issues] Meds Home Medications and Allergies Home Medications ?Medication ?Instructions ?Recorded ?Confirmed ?Type tamsulosin 0.4 mg capsule 0.4 mg PO BID PROSTATE 12/19/17 11/18/24 History venlafaxine 150 mg 150 mg PO DAILY Depression 12/19/17 11/18/24 History capsule,extended release 24 hr morphine 5 mg/mL injection solution 0.35 mg intrathecal CONT chronic 01/02/21 11/18/24 History pain cyclobenzaprine 5 mg tablet 10 mg PO HS muscle spasms 07/05/21 11/18/24 History ibuprofen 800 mg-famotidine 26.6 1 tab PO ONCE PRN pain 08/16/21 11/18/24 History mg tablet (Duexis) diclofenac sodium 75 mg 75 mg PO BID Pain 03/19/22 11/18/24 History tablet,delayed release tizanidine 4 mg tablet 4 mg PO HS . 03/19/22 11/18/24 History baclofen 10 mg tablet 10 mg PO TID Pain 04/06/22 11/18/24 History atorvastatin 20 mg tablet 20 mg PO DAILY Cholesterol #90 tabs 10/05/24 11/18/24 Rx celecoxib 200 mg capsule 200 mg PO DAILY 10/05/24 11/18/24 History hydrochlorothiazide 25 mg tablet 25 mg PO DAILY Blood thinner #90 10/05/24 11/18/24 Rx tabs losartan 100 mg tablet 100 mg PO DAILY #90 tabs 10/05/24 11/18/24 Rx pantoprazole 40 mg tablet,delayed 40 mg PO ONCE 10/05/24 11/18/24 History release prednisone 20 mg tablet 20 mg PO BID #10 tabs 10/12/24 11/18/24 Rx bisoprolol fumarate 10 mg tablet See Rx Instructions .Route 11/09/24 11/18/24 Rx .COMPLEX #30 tabs gabapentin 100 mg capsule 200 mg (2 x 100 mg) PO TID #84 caps 11/18/24 Rx methocarbamol 750 mg tablet 750 mg PO BID #60 tabs 11/18/24 Rx New Prescriptions to Start Prescriptions: Allergies Allergy/AdvReac Type Severity Reaction Status Date / Time cefaclor (From CECLOR) Allergy Unknown Unknown Verified 10/19/24 11:48 allergy reaction cephalexin (From KEFLEX) Allergy Unknown Unknown Verified 10/19/24 11:48 allergy reaction oxytetracycline (From Allergy Unknown Unknown Verified 10/19/24 11:48 TERRAMYCIN) allergy reaction Penicillins (PENICILLINS) Allergy Unknown Unknown Verified 10/19/24 11:48 allergy reaction erythromycin base Allergy Unknown Verified 10/19/24 11:48 allergy reaction Exam Constitutional Constitutional: no acute distress *Routine HEENT Exam Head: Present normocephalic and atraumatic Eye: Present PERRL ENT: Present mucous membranes moist *Routine Neck Exam Neck: Present supple *Routine Respiratory Exam Respiratory: Present CTA bilaterally *Routine Cardiovascular Exam Cardiovascular: Present RRR *Routine Abdominal Exam Abdominal: Present soft *Routine Rectal Exam Rectal:: deferred *Routine Genitalia Exam Genitalia:: normal male Routine Back/Spine/Pelvis Exam Back/Spine: Present pain with flexion *Routine Skin Exam Skin: Present intact and warm *Routine Neurological Exam Neurological: Present alert and oriented X3 Routine Psychiatric Exam Psychiatric: Present normal affect Assessment and Plan *Assessment and plan (1) Degenerative joint disease (DJD) of lumbar spine: Status: Chronic Category: Medical Code(s): M47.816 - Spondylosis without myelopathy or radiculopathy, lumbar region (2) Lumbar radiculopathy: Status: Chronic Category: Medical Code(s): M54.16 - Radiculopathy, lumbar region Plan Patient has been instructed to contact the clinic with any concerns before the next appointment. Dr. Adams has reviewed this note and agrees with this plan of care. This note was dictated using voice recognition software and make contain errors or omissions. All injections are used with Lidocaine, Bupivacaine and dexamethasone. Occasionally urine drug screen is needed to verify patient's compliance with our office pain contract. This is ordered based off specific treatments related to chronic pain with the potential to abuse certain medications.
--- NOTE | 2024-11-27 10:21 | EXP.PAIN.PRO ---
Procedure Date: 11/27/24 Time: 10:25 Anesthesiologist:: Adrienne Rand APRN Complications:: None Pre-procedure Diagnosis:: Degenerative disc disease of lumbar spine with lumbar radiculopathy symptoms, chronic pain syndrome Post-procedure Diagnosis:: Same Indications for Procedure:: Patient is a pleasant 49-year-old male who presents today for intrathecal refill and reprogram. Today he rates his pain a 7 out of 10. He states that pain is only due to the fact that he walked all the way back with the assistance of a cane. Overall he does state that his pain has improved and that the radicular symptoms have done really well with the gabapentin.Patient is currently managed with methocarbamol 750 mg twice a day and gabapentin 200 mg 3 times a day. He denies any side effects. His intrathecal pump is morphine 10 mg/mL with a daily dose of 3.091 mg/day his Kosta has been reviewed and is appropriate. Physical Exam: General: Alert and oriented x3, no acute distress, pleasant and cooperative Lungs: Respirations even and unlabored, symmetrical chest expansion Eyes: PERRL Musculoskeletal: Flexion and extension of lumbar [spine] somewhat guarded secondary to pain, [antalgic gait noted] Neurological: Speech clear, no gross sensory deficit Procedure Details:: Informed consent was obtained and the risk and benefits of the procedure were explained to the patient. The patient had noninvasive monitoring placed including noninvasive blood pressure cuff and pulse oximeter. Patient's pump was interrogated. The area over the pump was cleansed with chlorhexidine as a cleansing solution. In sterile fashion the pump was accessed with a 22-gauge needle. Approximately 6 mls of the pump solution was removed and discarded appropriately. The pump was then refilled with 20 mL's of morphine 10 mg/mL. The needle was withdrawn and a bandage was placed over the puncture site. The infusion rate was reprogrammed and continued at its current dose. The patient tolerated well with no complication. Plan and Disposition:: Patient tolerated the procedure well with no complications and was discharged neurologically intact. I will refill his gabapentin and provide a 1 month supply at gabapentin 300 mg 3 times a day. Patient will return to clinic on or before their next intrathecal refill date. We will see the patient back in the clinic at the next intrathecal refill. Patient has been instructed to contact the clinic with any concerns before the next appointment. Dr. Adams has reviewed this note and agrees with this plan of care. This note was dictated using voice recognition software and make contain errors or omissions. -- It Is medically necessary for this patient to continue to have their intrathecal pump refilled at regular intervals. This patient had an intrathecal pain pump implanted after meeting criteria of chronic intractable pain for greater than 3 months and failing conservative treatments. Patient has committed and been compliant to the treatment plan and all planned follow up care. Since implantation of the intrathecal pain pump, the patient has had decreased pain and been more functional. Oral medications have been reduced including intake of oral opioids. Patient continues to do well with intrathecal therapy with decrease in pain symptoms and increase in functional status. Stopping intrathecal medications can lead to life threatening withdrawal, seizures, cardiac arrest, severe pain, and possible . Pumps that are not refilled at regular intervals can be damages and cause and need for replacement. We continually titrate dose and concentration to optimize pain relief and function. We are limited in concentration for certain drugs to safely deliver medications through the pump and stay within the recommendations from the Polyanalgesic Consensus Committee Guidelines. Depending on dose and concentration these pumps may need to be refilled sooner than 3 months as we titrate. A UDS is needed to verify patient's compliance with our office pain contract. This is ordered based off specific treatments related to chronic pain with the potential to abuse certain medications.
[2024-11-27 10:28] VITALS: BP 106/70; PULSE 82; RESP 18; O2SAT 97
[2024-11-27 10:40] VITALS: BP 135/78; PULSE 82; RESP 16; O2SAT 92
== END 2024-11-27 10:40 | disposition home or self-care (01) ==
PROVIDERS: PCP Family Medicine; Visit Provider Nurse Practitioner Family
DX: M51.16 Intervertebral disc disorders with radiculopathy, lumbar region (principal); G89.4 Chronic pain syndrome
CPT/HCPCS: 62370; 99221

== ENCOUNTER 2025-01-08 10:01 | Day surgery (SDC) | payer BC, SELFPAY ==
--- NOTE | 2025-01-08 10:19 | EXP.PM.HP ---
History of Present Illness *Admission Date: 01/08/25 *Reason for visit:: Intrathecal refill; DDD *History of present illness: Same [facility] Disclaimer: The information contained in this section may have been updated after the patient was seen, as this information can be updated by other users. Medical History Implantable intrathecal infusion pump present Fusion of lumbar spine Post laminectomy syndrome GERD (gastroesophageal reflux disease) HLD (hyperlipidemia) HTN (hypertension) Sinus tachycardia Family History Other No significant family history Social History Smoking Status: Never smoker alcohol intake: never substance use type: denies use current occupational status: other Travel in the last 8 weeks?: None household members: spouse housing: house current occupation: [employer] current occupational exposures/hazards: No caffeine: Yes Have you lived/traveled outside [place] in past 30 days?: No Contact w/someone who lives/traveled outside US past 30 days?: No Exposure to someone with infectious disease in past 14 days?: No Do you have a fever (greater than 100.4 F or 38 C)?: No Have you tested positive for COVID-19?: No Exposed to someone with COVID-19 in past 14 days?: No Do you have a sore throat?: No Do you have a cough?: No Do you have any weakness?: No Do you have any diarrhea?: No Are you experiencing any unusual bleeding?: No Do you have any muscle aches/pain?: No Do you have any abdominal pain?: No Are you experiencing loss of taste or smell?: No Other Medical History Have you received the Flu Vaccine for this season: No Have you received the Pneumonia Vaccine: No Review of Systems Review of Systems Review of systems:: pertinent systems reviewed and negative unless documented below Review of systems (narrative): Review of Systems: General: No recent weight changes, no fever, no sleep disturbances Respiratory: No cough, no shortness of air, no recurring pulmonary infections Cardiovascular/peripheral vascular: No chest pain, no palpitations, no edema, no shortness of breath Gastrointestinal: No new onset incontinence, normal bowel movements reported Genitourinary: No new onset incontinence Musculoskeletal: Chronic back pain Psychiatric: [Normal mood/affect] Neurological: [Denies weakness in extremities], [denies balance issues] Meds Home Medications and Allergies Home Medications ?Medication ?Instructions ?Recorded ?Confirmed ?Type tamsulosin 0.4 mg capsule 0.4 mg PO BID PROSTATE 12/19/17 11/27/24 History venlafaxine 150 mg 150 mg PO DAILY Depression 12/19/17 11/27/24 History capsule,extended release 24 hr morphine 5 mg/mL injection solution 0.35 mg intrathecal CONT chronic 01/02/21 11/27/24 History pain cyclobenzaprine 5 mg tablet 10 mg PO HS muscle spasms 07/05/21 11/27/24 History ibuprofen 800 mg-famotidine 26.6 1 tab PO ONCE PRN pain 08/16/21 11/27/24 History mg tablet (Duexis) diclofenac sodium 75 mg 75 mg PO BID Pain 03/19/22 11/27/24 History tablet,delayed release tizanidine 4 mg tablet 4 mg PO HS . 03/19/22 11/27/24 History baclofen 10 mg tablet 10 mg PO TID Pain 04/06/22 11/27/24 History atorvastatin 20 mg tablet 20 mg PO DAILY Cholesterol #90 tabs 10/05/24 11/27/24 Rx celecoxib 200 mg capsule 200 mg PO DAILY 10/05/24 11/27/24 History hydrochlorothiazide 25 mg tablet 25 mg PO DAILY Blood thinner #90 10/05/24 11/27/24 Rx tabs losartan 100 mg tablet 100 mg PO DAILY #90 tabs 10/05/24 11/27/24 Rx pantoprazole 40 mg tablet,delayed 40 mg PO ONCE 10/05/24 11/27/24 History release prednisone 20 mg tablet 20 mg PO BID #10 tabs 10/12/24 11/27/24 Rx bisoprolol fumarate 10 mg tablet See Rx Instructions .Route 11/09/24 11/27/24 Rx .COMPLEX #30 tabs gabapentin 100 mg capsule 200 mg (2 x 100 mg) PO TID #84 caps 11/18/24 11/27/24 Rx methocarbamol 750 mg tablet 750 mg PO BID #60 tabs 11/18/24 11/27/24 Rx gabapentin 300 mg capsule See Rx Instructions .Route 01/01/25 Rx .COMPLEX #90 caps New Prescriptions to Start Prescriptions: Allergies Allergy/AdvReac Type Severity Reaction Status Date / Time cefaclor (From [facility]) Allergy Unknown Unknown Verified 10/19/24 11:48 allergy reaction cephalexin (From KEFLEX) Allergy Unknown Unknown Verified 10/19/24 11:48 allergy reaction oxytetracycline (From Allergy Unknown Unknown Verified 10/19/24 11:48 TERRAMYCIN) allergy reaction Penicillins (PENICILLINS) Allergy Unknown Unknown Verified 10/19/24 11:48 allergy reaction erythromycin base Allergy Unknown Verified 10/19/24 11:48 allergy reaction Exam Constitutional Constitutional: no acute distress *Routine HEENT Exam Head: Present normocephalic and atraumatic Eye: Present PERRL ENT: Present mucous membranes moist *Routine Neck Exam Neck: Present supple *Routine Respiratory Exam Respiratory: Present CTA bilaterally *Routine Cardiovascular Exam Cardiovascular: Present RRR *Routine Abdominal Exam Abdominal: Present soft *Routine Rectal Exam Rectal:: deferred *Routine Genitalia Exam Genitalia:: deferred Routine Back/Spine/Pelvis Exam Back/Spine: Present pain with flexion *Routine Skin Exam Skin: Present intact, dry and warm *Routine Neurological Exam Neurological: Present alert and oriented X3 Routine Psychiatric Exam Psychiatric: Present normal affect and normal thought process Assessment and Plan *Assessment and plan (1) Low back pain: Status: Acute Qualifiers: Back pain laterality: midline Chronicity: chronic Sciatica presence: without sciatica Qualified Code(s): M54.50 - Low back pain, unspecified; G89.29 - Other chronic pain Category: Medical Code(s): M54.50 - Low back pain, unspecified (2) Degenerative joint disease (DJD) of lumbar spine: Status: Chronic Category: Medical Code(s): M47.816 - Spondylosis without myelopathy or radiculopathy, lumbar region (3) Lumbar radiculopathy: Status: Chronic Category: Medical Code(s): M54.16 - Radiculopathy, lumbar region (4) Facet arthropathy, lumbar: Status: Chronic Category: Medical Code(s): M47.816 - Spondylosis without myelopathy or radiculopathy, lumbar region (5) Spinal stenosis of lumbar region: Status: Chronic Qualifiers: Neurogenic claudication status: with neurogenic claudication Qualified Code(s): M48.062 - Spinal stenosis, lumbar region with neurogenic claudication Category: Medical Code(s): M48.061 - Spinal stenosis, lumbar region without neurogenic claudication Plan Patient has been instructed to contact the clinic with any concerns before the next appointment. Dr. Adams has reviewed this note and agrees with this plan of care. This note was dictated using voice recognition software and make contain errors or omissions. All injections are used with Lidocaine, Bupivacaine and dexamethasone. Occasionally urine drug screen is needed to verify patient's compliance with our office pain contract. This is ordered based off specific treatments related to chronic pain with the potential to abuse certain medications.
--- NOTE | 2025-01-08 10:20 | EXP.PAIN.PRO ---
Procedure Date: 01/08/25 Time: 11:41 Anesthesiologist:: Adrienne Rand APRN Complications:: None Pre-procedure Diagnosis:: Degenerative disc disease of lumbar spine with lumbar radiculopathy symptoms, chronic pain syndrome, lumbar spinal stenosis Post-procedure Diagnosis:: Same Indications for Procedure:: Patient is a pleasant 49-year-old male who presents today for intrathecal refill and reprogram. Today he rates his pain 2 out of 10. Patient denies any new trauma or injury. Patient does state overall he has been doing really well and has not had the pain like what he previously had. Patient states that his insurance did change and he was not going to see the same neurosurgeon that he was previously however at the right things are going if he continues to feel this way he is going to wait it out before proceeding forward with the option of surgery. Patient is currently managed with morphine 10 mg/mL with a daily dose of 3.091 mg/day. He denies any side effects from this medication. Patient is also prescribed methocarbamol 750 mg twice a day and gabapentin 200 mg 3 times a day. He denies any side effects. His K[place] has been reviewed and is appropriate. Physical Exam: General: Alert and oriented x3, no acute distress, pleasant and cooperative Lungs: Respirations even and unlabored, symmetrical chest expansion Eyes: PERRL Musculoskeletal: Flexion and extension of lumbar [spine] somewhat guarded secondary to pain, [antalgic gait noted] Neurological: Speech clear, no gross sensory deficit Procedure Details:: Informed consent was obtained and the risk and benefits of the procedure were explained to the patient. The patient had noninvasive monitoring placed including noninvasive blood pressure cuff and pulse oximeter. Patient's pump was interrogated. The area over the pump was cleansed with chlorhexidine as a cleansing solution. In sterile fashion the pump was accessed with a 22-gauge needle. Approximately 6.9 mls of the pump solution was removed and discarded appropriately. The pump was then refilled with 20 mL's of morphine 10 mg/mL. The needle was withdrawn and a bandage was placed over the puncture site. The infusion rate was reprogrammed and continued at its current dosage. The patient tolerated well with no complication. Plan and Disposition:: Patient tolerated the procedure well with no complications and was discharged neurologically intact. Patient will return to clinic on or before their next intrathecal refill date. We will see the patient back in the clinic at the next intrathecal refill. Patient has been instructed to contact the clinic with any concerns before the next appointment. Dr. Adams has reviewed this note and agrees with this plan of care. This note was dictated using voice recognition software and make contain errors or omissions. -- It Is medically necessary for this patient to continue to have their intrathecal pump refilled at regular intervals. This patient had an intrathecal pain pump implanted after meeting criteria of chronic intractable pain for greater than 3 months and failing conservative treatments. Patient has committed and been compliant to the treatment plan and all planned follow up care. Since implantation of the intrathecal pain pump, the patient has had decreased pain and been more functional. Oral medications have been reduced including intake of oral opioids. Patient continues to do well with intrathecal therapy with decrease in pain symptoms and increase in functional status. Stopping intrathecal medications can lead to life threatening withdrawal, seizures, cardiac arrest, severe pain, and possible . Pumps that are not refilled at regular intervals can be damages and cause and need for replacement. We continually titrate dose and concentration to optimize pain relief and function. We are limited in concentration for certain drugs to safely deliver medications through the pump and stay within the recommendations from the Polyanalgesic Consensus Committee Guidelines. Depending on dose and concentration these pumps may need to be refilled sooner than 3 months as we titrate. A UDS is needed to verify patient's compliance with our office pain contract. This is ordered based off specific treatments related to chronic pain with the potential to abuse certain medications.
[2025-01-08 10:26] VITALS: BP 132/84; PULSE 71; RESP 16; O2SAT 95; BMI 40.0
[2025-01-08 11:30] VITALS: BP 124/66; PULSE 72; RESP 18; O2SAT 93
[2025-01-08 11:45] VITALS: BP 115/75; PULSE 76; RESP 16; O2SAT 93
== END 2025-01-08 11:45 | disposition home or self-care (01) ==
PROVIDERS: PCP Family Medicine; Visit Provider Nurse Practitioner Family
DX: M51.16 Intervertebral disc disorders with radiculopathy, lumbar region (principal); M48.061 Spinal stenosis, lumbar region without neurogenic claudication; G89.4 Chronic pain syndrome; M96.1 Postlaminectomy syndrome, not elsewhere classified; K21.9 Gastro-esophageal reflux disease without esophagitis; E78.5 Hyperlipidemia, unspecified; I10 Essential (primary) hypertension; Z79.899 Other long term (current) drug therapy; Z79.52 Long term (current) use of systemic steroids; Z88.0 Allergy status to penicillin; Z79.891 Long term (current) use of opiate analgesic; Z98.1 Arthrodesis status; Z88.1 Allergy status to other antibiotic agents; Z88.8 Allergy status to other drugs, medicaments and biological substances
CPT/HCPCS: 62370

== ENCOUNTER 2025-02-19 11:51 | Day surgery (SDC) | payer BC, SELFPAY ==
[2025-02-19 11:56] VITALS: BP 133/75; PULSE 58; RESP 18; O2SAT 96; BMI 40.0
--- NOTE | 2025-02-19 12:04 | EXP.PM.HP ---
History of Present Illness *Admission Date: 02/19/25 *Reason for visit:: Intrathecal refill; DDD *History of present illness: Same [facility] Disclaimer: The information contained in this section may have been updated after the patient was seen, as this information can be updated by other users. Medical History Implantable intrathecal infusion pump present Fusion of lumbar spine Post laminectomy syndrome GERD (gastroesophageal reflux disease) HLD (hyperlipidemia) HTN (hypertension) Sinus tachycardia Family History Other No significant family history Social History Smoking Status: Never smoker alcohol intake: never substance use type: denies use current occupational status: other Travel in the last 8 weeks?: None household members: spouse housing: house current occupation: [employer] current occupational exposures/hazards: No caffeine: Yes Have you lived/traveled outside [place] in past 30 days?: No Contact w/someone who lives/traveled outside US past 30 days?: No Exposure to someone with infectious disease in past 14 days?: No Do you have a fever (greater than 100.4 F or 38 C)?: No Have you tested positive for COVID-19?: No Exposed to someone with COVID-19 in past 14 days?: No Do you have a sore throat?: No Do you have a cough?: No Do you have any weakness?: No Do you have any diarrhea?: No Are you experiencing any unusual bleeding?: No Do you have any muscle aches/pain?: No Do you have any abdominal pain?: No Are you experiencing loss of taste or smell?: No Other Medical History Have you received the Flu Vaccine for this season: No Have you received the Pneumonia Vaccine: No Review of Systems Review of Systems Review of systems:: pertinent systems reviewed and negative unless documented below Review of systems (narrative): Review of Systems: General: No recent weight changes, no fever, no sleep disturbances Respiratory: No cough, no shortness of air, no recurring pulmonary infections Cardiovascular/peripheral vascular: No chest pain, no palpitations, no edema, no shortness of breath Gastrointestinal: No new onset incontinence, normal bowel movements reported Genitourinary: No new onset incontinence Musculoskeletal: Chronic back pain Psychiatric: [Normal mood/affect] Neurological: [Denies weakness in extremities], [denies balance issues] Meds Home Medications and Allergies Home Medications ?Medication ?Instructions ?Recorded ?Confirmed ?Type tamsulosin 0.4 mg capsule 0.4 mg PO BID PROSTATE 12/19/17 02/19/25 History venlafaxine 150 mg 150 mg PO DAILY Depression 12/19/17 02/19/25 History capsule,extended release 24 hr morphine 5 mg/mL injection solution 0.35 mg intrathecal CONT chronic 01/02/21 02/19/25 History pain diclofenac sodium 75 mg 75 mg PO BID Pain 03/19/22 02/19/25 History tablet,delayed release tizanidine 4 mg tablet 4 mg PO HS . 03/19/22 02/19/25 History baclofen 10 mg tablet 10 mg PO TID Pain 04/06/22 02/19/25 History atorvastatin 20 mg tablet 20 mg PO DAILY Cholesterol #90 tabs 10/05/24 02/19/25 Rx celecoxib 200 mg capsule 200 mg PO DAILY 10/05/24 02/19/25 History hydrochlorothiazide 25 mg tablet 25 mg PO DAILY Blood thinner #90 10/05/24 02/19/25 Rx tabs losartan 100 mg tablet 100 mg PO DAILY #90 tabs 10/05/24 02/19/25 Rx pantoprazole 40 mg tablet,delayed 40 mg PO ONCE 10/05/24 02/19/25 History release bisoprolol fumarate 10 mg tablet See Rx Instructions .Route 11/09/24 02/19/25 Rx .COMPLEX #30 tabs methocarbamol 750 mg tablet 750 mg PO BID #60 tabs 11/18/24 02/19/25 Rx anastrozole 1 mg tablet 1 mg PO . 01/28/25 02/19/25 History testosterone cypionate 200 mg/mL 200 mg SQ . 01/28/25 02/19/25 History intramuscular oil trazodone 50 mg tablet 50 mg PO . 01/28/25 02/19/25 History gabapentin 300 mg capsule See Rx Instructions .Route 02/01/25 02/19/25 Rx .COMPLEX #90 caps New Prescriptions to Start Prescriptions: Allergies Allergy/AdvReac Type Severity Reaction Status Date / Time cefaclor (From [facility]) Allergy Unknown Unknown Verified 01/28/25 13:44 allergy reaction cephalexin (From KEFLEX) Allergy Unknown Unknown Verified 01/28/25 13:44 allergy reaction oxytetracycline (From Allergy Unknown Unknown Verified 01/28/25 13:44 TERRAMYCIN) allergy reaction Penicillins (PENICILLINS) Allergy Unknown Unknown Verified 01/28/25 13:44 allergy reaction erythromycin base Allergy Unknown Verified 01/28/25 13:44 allergy reaction Exam Data for Last 24 hours Vital signs and Labs for Last 24 Hours: Pulse Resp BP Pulse Ox O2 Del Method 58 L 18 133/75 96 Room Air 02/19/25 11:56 02/19/25 11:56 02/19/25 11:56 02/19/25 11:56 02/19/25 11:56 I & O for Last 24 hours: Intake & Output 02/16/25 02/17/25 02/18/25 02/19/25 23:59 23:59 23:59 23:59 Weight 295 lb Constitutional Constitutional: no acute distress *Routine HEENT Exam Head: Present normocephalic and atraumatic Eye: Present PERRL ENT: Present mucous membranes moist *Routine Neck Exam Neck: Present supple *Routine Respiratory Exam Respiratory: Present CTA bilaterally *Routine Cardiovascular Exam Cardiovascular: Present RRR *Routine Abdominal Exam Abdominal: Present soft *Routine Rectal Exam Rectal:: deferred *Routine Genitalia Exam Genitalia:: deferred Routine Back/Spine/Pelvis Exam Back/Spine: Present pain with flexion *Routine Skin Exam Skin: Present intact and warm *Routine Neurological Exam Neurological: Present alert and oriented X3 Routine Psychiatric Exam Psychiatric: Present normal affect and normal thought process Assessment and Plan *Assessment and plan (1) Low back pain: Status: Acute Qualifiers: Back pain laterality: midline Chronicity: chronic Sciatica presence: without sciatica Qualified Code(s): M54.50 - Low back pain, unspecified; G89.29 - Other chronic pain Category: Medical Code(s): M54.50 - Low back pain, unspecified (2) Back pain: Status: Acute Category: Medical Code(s): M54.9 - Dorsalgia, unspecified (3) Lumbar radiculopathy: Status: Chronic Category: Medical Code(s): M54.16 - Radiculopathy, lumbar region (4) Degenerative joint disease (DJD) of lumbar spine: Status: Chronic Category: Medical Code(s): M47.816 - Spondylosis without myelopathy or radiculopathy, lumbar region Plan Patient has been instructed to contact the clinic with any concerns before the next appointment. Dr. Adams has reviewed this note and agrees with this plan of care. This note was dictated using voice recognition software and make contain errors or omissions. All injections are used with Lidocaine, Bupivacaine and dexamethasone. Occasionally urine drug screen is needed to verify patient's compliance with our office pain contract. This is ordered based off specific treatments related to chronic pain with the potential to abuse certain medications.
--- NOTE | 2025-02-19 12:05 | P.PCN_ITS ---
Procedure Date: 02/19/25 Time: 12:05 Anesthesiologist:: Adrienne Rand APRN Complications:: None Pre-procedure Diagnosis:: Degenerative disc disease of cervical and lumbar spine with cervical and lumbar radicular with the symptoms, chronic back pain Post-procedure Diagnosis:: Same Indications for Procedure:: Patient is a pleasant 49-year-old male who presents today for intrathecal refill and reprogram. Today he rates his pain 5 out of 10. He denies any new trauma or injury. He does state overall he has done remarkably well and is not having the symptoms like he was previously. Patient is doing well with his current medication of morphine 10 mg/mL with a daily dose of 3.0917 mg/day. He is also managed with gabapentin 300 mg 3 times daily. He denies any side effects. Physical Exam: General: Alert and oriented x3, no acute distress, pleasant and cooperative Lungs: Respirations even and unlabored, symmetrical chest expansion Eyes: PERRL Musculoskeletal: Flexion and extension of lumbar [spine] somewhat guarded secondary to pain, [antalgic gait noted] Neurological: Speech clear, no gross sensory deficit Procedure Details:: Informed consent was obtained and the risk and benefits of the procedure were explained to the patient. The patient had noninvasive monitoring placed including noninvasive blood pressure cuff and pulse oximeter. Patient's pump was interrogated. The area over the pump was cleansed with chlorhexidine as a cleansing solution. In sterile fashion the pump was accessed with a 22-gauge needle. Approximately 7 mls of the pump solution was removed and discarded appropriately. The pump was then refilled with 20 mL's of morphine 10 mg/mL. The needle was withdrawn and a bandage was placed over the puncture site. The infusion rate was reprogrammed and continued at its current dosage. The patient tolerated well with no complication. Plan and Disposition:: Patient tolerated the procedure well with no complications and was discharged neurologically intact. I will make sure he has refills on his gabapentin. patient will return to clinic on or before their next intrathecal refill date. We will see the patient back in the clinic at the next intrathecal refill. Patient has been instructed to contact the clinic with any concerns before the next appointment. Dr. Adams has reviewed this note and agrees with this plan of care. This note was dictated using voice recognition software and make contain errors or omissions. -- It Is medically necessary for this patient to continue to have their intrathecal pump refilled at regular intervals. This patient had an intrathecal pain pump implanted after meeting criteria of chronic intractable pain for greater than 3 months and failing conservative treatments. Patient has committed and been co mpliant to the treatment plan and all planned follow up care. Since implantation of the intrathecal pain pump, the patient has had decreased pain and been more functional. Oral medications have been reduced including intake of oral opioids. Patient continues to do well with intrathecal therapy with decrease in pain symptoms and increase in functional status. Stopping intrathecal medications can lead to life threatening withdrawal, seizures, cardiac arrest, severe pain, and possible . Pumps that are not refilled at regular intervals can be damages and cause and need for replacement. We continually titrate dose and concentration to optimize pain relief and function. We are limited in concentration for certain drugs to safely deliver medications through the pump and stay within the recommendations from the Polyanalgesic Consensus Committee Guidelines. Depending on dose and concentration these pumps may need to be refilled sooner than 3 months as we titrate. A UDS is needed to verify patient's compliance with our office pain contract. This is ordered based off specific treatments related to chronic pain with the potential to abuse certain medications.
[2025-02-19 12:11] VITALS: BP 129/69; PULSE 81; RESP 18; O2SAT 94
[2025-02-19 12:22] VITALS: BP 133/72; PULSE 74; RESP 18; O2SAT 94
== END 2025-02-19 12:22 | disposition home or self-care (01) ==
PROVIDERS: PCP Family Medicine; Visit Provider Nurse Practitioner Family
DX: M50.10 Cervical disc disorder with radiculopathy, unspecified cervical region (principal); M51.16 Intervertebral disc disorders with radiculopathy, lumbar region; G89.29 Other chronic pain; Z98.1 Arthrodesis status; K21.9 Gastro-esophageal reflux disease without esophagitis; E78.5 Hyperlipidemia, unspecified; I10 Essential (primary) hypertension; M96.1 Postlaminectomy syndrome, not elsewhere classified; R00.0 Tachycardia, unspecified; Z88.1 Allergy status to other antibiotic agents; Z88.0 Allergy status to penicillin; Z88.8 Allergy status to other drugs, medicaments and biological substances; Z79.891 Long term (current) use of opiate analgesic; Z79.899 Other long term (current) drug therapy
CPT/HCPCS: 62370

== ENCOUNTER 2025-03-19 14:04 | Day surgery (SDC) | payer BC, SELFPAY ==
--- NOTE | 2025-03-19 14:08 | EXP.PM.HP ---
History of Present Illness *Admission Date: 03/19/25 *Reason for visit:: Intrathecal refill DDD *History of present illness: Same [facility] Disclaimer: The information contained in this section may have been updated after the patient was seen, as this information can be updated by other users. Medical History Implantable intrathecal infusion pump present Fusion of lumbar spine Post laminectomy syndrome GERD (gastroesophageal reflux disease) HLD (hyperlipidemia) HTN (hypertension) Sinus tachycardia Family History Other No significant family history Social History Smoking Status: Never smoker alcohol intake: never substance use type: denies use current occupational status: other Travel in the last 8 weeks?: None household members: spouse housing: house current occupation: [employer] current occupational exposures/hazards: No caffeine: Yes Have you lived/traveled outside [place] in past 30 days?: No Contact w/someone who lives/traveled outside [place] past 30 days?: No Exposure to someone with infectious disease in past 14 days?: No Do you have a fever (greater than 100.4 F or 38 C)?: No Have you tested positive for COVID-19?: No Exposed to someone with COVID-19 in past 14 days?: No Do you have a sore throat?: No Do you have a cough?: No Do you have any weakness?: No Do you have any diarrhea?: No Are you experiencing any unusual bleeding?: No Do you have any muscle aches/pain?: No Do you have any abdominal pain?: No Are you experiencing loss of taste or smell?: No Other Medical History Have you received the Flu Vaccine for this season: No Have you received the Pneumonia Vaccine: No Meds Home Medications and Allergies Home Medications ?Medication ?Instructions ?Recorded ?Confirmed ?Type tamsulosin 0.4 mg capsule 0.4 mg PO BID PROSTATE 12/19/17 02/19/25 History venlafaxine 150 mg 150 mg PO DAILY Depression 12/19/17 02/19/25 History capsule,extended release 24 hr morphine 5 mg/mL injection solution 0.35 mg intrathecal CONT chronic 01/02/21 02/19/25 History pain diclofenac sodium 75 mg 75 mg PO BID Pain 03/19/22 02/19/25 History tablet,delayed release tizanidine 4 mg tablet 4 mg PO HS . 03/19/22 02/19/25 History baclofen 10 mg tablet 10 mg PO TID Pain 04/06/22 02/19/25 History atorvastatin 20 mg tablet 20 mg PO DAILY Cholesterol #90 tabs 10/05/24 02/19/25 Rx celecoxib 200 mg capsule 200 mg PO DAILY 10/05/24 02/19/25 History hydrochlorothiazide 25 mg tablet 25 mg PO DAILY Blood thinner #90 10/05/24 02/19/25 Rx tabs losartan 100 mg tablet 100 mg PO DAILY #90 tabs 10/05/24 02/19/25 Rx pantoprazole 40 mg tablet,delayed 40 mg PO ONCE 10/05/24 02/19/25 History release bisoprolol fumarate 10 mg tablet See Rx Instructions .Route 11/09/24 02/19/25 Rx .COMPLEX #30 tabs methocarbamol 750 mg tablet 750 mg PO BID #60 tabs 11/18/24 02/19/25 Rx anastrozole 1 mg tablet 1 mg PO . 01/28/25 02/19/25 History testosterone cypionate 200 mg/mL 200 mg SQ . 01/28/25 02/19/25 History intramuscular oil trazodone 50 mg tablet 50 mg PO . 01/28/25 02/19/25 History gabapentin 300 mg capsule See Rx Instructions .Route 02/19/25 Rx .COMPLEX #90 caps New Prescriptions to Start Prescriptions: Allergies Allergy/AdvReac Type Severity Reaction Status Date / Time cefaclor (From CECLOR) Allergy Unknown Unknown Verified 01/28/25 13:44 allergy reaction cephalexin (From KEFLEX) Allergy Unknown Unknown Verified 01/28/25 13:44 allergy reaction oxytetracycline (From Allergy Unknown Unknown Verified 01/28/25 13:44 TERRAMYCIN) allergy reaction Penicillins (PENICILLINS) Allergy Unknown Unknown Verified 01/28/25 13:44 allergy reaction erythromycin base Allergy Unknown Verified 01/28/25 13:44 allergy reaction Exam *Routine HEENT Exam Head: Present normocephalic and atraumatic Eye: Present PERRL ENT: Present mucous membranes moist *Routine Neck Exam Neck: Present supple *Routine Respiratory Exam Respiratory: Present CTA bilaterally *Routine Cardiovascular Exam Cardiovascular: Present RRR *Routine Abdominal Exam Abdominal: Present soft *Routine Rectal Exam Rectal:: deferred *Routine Genitalia Exam Genitalia:: deferred Routine Back/Spine/Pelvis Exam Back/Spine: Present pain with flexion *Routine Skin Exam Skin: Present intact and warm *Routine Neurological Exam Neurological: Present alert and oriented X3
--- NOTE | 2025-03-19 14:09 | P.PCN_ITS ---
Procedure Date: 03/19/25 Time: 14:48 Anesthesiologist:: Adrienne Rand APRN Complications:: None Pre-procedure Diagnosis:: Degenerative disc disease of lumbar spine with lumbar radiculopathy symptoms, chronic pain syndrome Post-procedure Diagnosis:: Same Indications for Procedure:: Patient is a pleasant 49-year-old male who presents today for intrathecal refill and reprogram. He does rate his pain today a 5 out of 10. Patient does feel like his epidural has officially worn off now and he is noticing more pain in his low back and legs with numbness and tingling. He does state the pain interferes with his ability perform activities of daily living such as cooking and cleaning. Patient would like to see about getting scheduled for another injection. He does state the symptoms into his legs is primarily on the left side. Patient is currently managed with morphine 10 mg/mL with a daily dose of 3.0917 mg/day and gabapentin 300 mg 3 times a day from our office. He denies any side effects. His Kosta has been reviewed and is appropriate. Physical Exam: General: Alert and oriented x3, no acute distress, pleasant and cooperative Lungs: Respirations even and unlabored, symmetrical chest expansion Eyes: PERRL Musculoskeletal: Flexion and extension of lumbar [spine] somewhat guarded secondary to pain, [antalgic gait noted] positive leg raise Neurological: Speech clear, no gross sensory deficit Procedure Details:: Informed consent was obtained and the risk and benefits of the procedure were explained to the patient. The patient had noninvasive monitoring placed including noninvasive blood pressure cuff and pulse oximeter. Patient's pump was interrogated. The area over the pump was cleansed with chlorhexidine as a cleansing solution. In sterile fashion the pump was accessed with a 22-gauge needle. Approximately 11 mls of the pump solution was removed and discarded appropriately. The pump was then refilled with 20 mL's of morphine 10 mg/mL. The needle was withdrawn and a bandage was placed over the puncture site. The infusion rate was reprogrammed and continued at its current dosage. The patient tolerated well with no complication. Plan and Disposition:: Patient tolerated the procedure well with no complications and was discharged neurologically intact. Patient is experiencing worsening pain in his low back with numbness and tingling into he is lower extremities. Patient did have limited range of motion of he is lumbar spine with a positive leg raise. I did discuss with patient that I do believe they would benefit from a lumbar epidural steroid injection. Risk and benefits were discussed with patient and the patient would like to proceed forward with this plan of care. Patient is not on any blood thinners. Patient has tried and failed conservative therapy including oral medications, heat and ice, topicals and continued at home stretching exercise for longer than 12 weeks between injections. Patient has had chronic back pain for longer than 6 months. Patient did previously have a lumbar epidural back in September that provided 50% relief and lasted longer than 4 months. We will schedule the patient for an LESI L4-L5 under fluoroscopy. We will also give him his next intrathecal refill date and time. We will see the patient back in the clinic at the next intrathecal refill. Patient has been instructed to contact the clinic with any concerns before the next appointment. Dr. Adams has reviewed this note and agrees with this plan of care. This note was dictated using voice recognition software and make contain errors or omissions. -- It Is medically necessary for this patient to continue to have their intrathecal pump refilled at regular intervals. This patient had an intrathecal pain pump implanted after meeting criteria of chronic intractable pain for greater than 3 months and failing conservative treatments. Patient has committed and been compliant to the treatment plan and all planned follow up care. Since im plantation of the intrathecal pain pump, the patient has had decreased pain and been more functional. Oral medications have been reduced including intake of oral opioids. Patient continues to do well with intrathecal therapy with decrease in pain symptoms and increase in functional status. Stopping intrathecal medications can lead to life threatening withdrawal, seizures, cardiac arrest, severe pain, and possible . Pumps that are not refilled at regular intervals can be damages and cause and need for replacement. We continually titrate dose and concentration to optimize pain relief and function. We are limited in concentration for certain drugs to safely deliver medications through the pump and stay within the recommendations from the Polyanalges[employer] Consensus Committee Guidelines. Depending on dose and concentration these pumps may need to be refilled sooner than 3 months as we titrate. A UDS is needed to verify patient's compliance with our office pain contract. This is ordered based off specific treatments related to chronic pain with the potential to abuse certain medications.
[2025-03-19 14:26] VITALS: BP 142/91; PULSE 64; RESP 18; O2SAT 93; BMI 40.0
[2025-03-19 14:42] VITALS: BP 125/79; PULSE 82; RESP 18; O2SAT 93
[2025-03-19 14:52] VITALS: BP 145/83; PULSE 77; RESP 18; O2SAT 92
== END 2025-03-19 14:52 | disposition home or self-care (01) ==
PROVIDERS: PCP Family Medicine; Visit Provider Nurse Practitioner Family
DX: Z45.1 Encounter for adjustment and management of infusion pump (principal); M51.16 Intervertebral disc disorders with radiculopathy, lumbar region; G89.4 Chronic pain syndrome; Z98.1 Arthrodesis status; K21.9 Gastro-esophageal reflux disease without esophagitis; E78.5 Hyperlipidemia, unspecified; I10 Essential (primary) hypertension; M96.1 Postlaminectomy syndrome, not elsewhere classified; R00.0 Tachycardia, unspecified; Z88.1 Allergy status to other antibiotic agents; Z88.0 Allergy status to penicillin; Z88.8 Allergy status to other drugs, medicaments and biological substances; Z79.891 Long term (current) use of opiate analgesic; Z79.899 Other long term (current) drug therapy
CPT/HCPCS: 62370